=== PATIENT | female | born 1935 | race Caucasian/White ===

== ENCOUNTER → 2017-07-11 08:57 | Outpatient (CLI) | payer MEDICARE, OTHER, SELFPAY ==
[2017-07-11 10:12] LABS: AST(SGOT) 25 U/L (15-37); Alanine Aminotransfer ALT/SGPT 21 U/L (13-56); Alkaline Phosphatase 96 U/L (45-117); Bilirubin, Direct 0.16 mg/dL (0.00-0.30); Cholesterol 153 mg/dL (200); High Density Lipoprotein 50 mg/dL; Triglycerides 110 mg/dL; Very Low Density Lipoprotein 22 mg/dL (5-40)
== END ==
PROVIDERS: Family Provider Family Medicine; PCP Family Medicine; Visit Provider Internal Medicine Cardiovascular Disease
DX: E78.5 Hyperlipidemia, unspecified (principal); Z79.899 Other long term (current) drug therapy
CPT/HCPCS: 36415; 80061; 80076

== ENCOUNTER 2017-08-30 17:09 | Emergency (ER) | payer MEDICARE, OTHER, SELFPAY ==
[2017-08-30 17:11] VITALS: BP 138/67; PULSE 84; RESP 14; TEMP 37.5; O2SAT 94; BMI 26.7
[2017-08-30 17:14] VITALS: O2SAT 95
--- NOTE | 2017-08-30 17:16 | RAD_ITS ---
STUDY: X-RAY - LEFT KNEE REASON FOR EXAM: Female, 82 years old. Left knee pain. Fall. TECHNIQUE: 4 view(s) of the knee. COMPARISON: None. FINDINGS: Normal visualized distal femur. Normal visualized proximal tibia and fibula. Normal proximal tibiofibular articulation. There is no demonstrated fracture. There is moderate to severe degenerative arthrosis of the medial femorotibial compartment with moderate joint space narrowing. Normal lateral femorotibial compartment. There is moderate degenerative arthrosis of the patellofemoral articulation. There is no demonstrated joint effusion. There are vascular calcifications and vascular sutures.. RAD/Knee 4 or More Views IMPRESSION: No acute abnormality. Degenerative changes. No fracture or dislocation. Electronically Signed: Josue Wilson MD at 18:07 EDT , Service support ,
--- NOTE | 2017-08-30 17:16 | CT_ITS ---
STUDY: CT CHEST WITHOUT CONTRAST REASON FOR EXAM: Female, 82 years old. Trauma. Breast cancer. Mastectomy. RADIATION DOSAGE (If Supplied By Facility): CTDIvol = ( 9.59 ) mGy, DLP = ( 388.42 ) mGycm TECHNIQUE: Transaxial imaging was performed without the administration of intravenous contrast material. Individualized dose optimization techniques were used for this CT. COMPARISON: None. FINDINGS: Previous left mastectomy. There is hyperinflation of the lungs consistent with chronic obstructive lung disease (COPD). Small patchy area of pulmonary density 1.6 cm size in the left lung base may be scarring or minimal infiltrate.. No effusions. No evidence for pneumothorax. Small scattered areas of probable mild fibrosis and/or subsegmental atelectasis. No effusions. There is no demonstrated pleural abnormality. Sternal cerclage wires and vascular clips are present from a prior sternotomy and coronary artery bypass graft procedure (CABG). There are calcifications of the coronary arteries. Normal mediastinum. Normal hilar regions. Normal unenhanced pulmonary arteries. There is atherosclerotic calcification of the aortic arch with tortuosity and elongation of the aortic arch and descending thoracic aorta. Nondisplaced fracture seen of the left sixth and seventh lateral ribs. Exaggerated thoracic kyphosis primarily related to compression fracture of T4 of indeterminate age, very likely old. Diffuse demineralization. There is no demonstrated abnormality of the visualized upper abdomen. CT/Chest without Contrast IMPRESSION: Probable COPD. Question minimal area of infiltrate in the left lower lobe. No pneumothorax. Compression fracture T4 of indeterminate age. Fractures of the left lateral sixth and seventh ribs. Electronically Signed: Josue Wilson MD at 17:52 EDT , Service support ,
--- NOTE | 2017-08-30 17:16 | CT_ITS ---
STUDY: CT BRAIN WITHOUT CONTRAST REASON FOR EXAM: Female, 82 years old. Fall. Head injury. Breast cancer. RADIATION DOSAGE (If Supplied By Facility): CTDIvol = ( 44.99 ) mGy, DLP = ( 745.49 ) mGycm TECHNIQUE: Transaxial CT imaging of the brain was performed without administration of intravenous contrast material. Individualized dose optimization techniques were used for this CT. COMPARISON: None. FINDINGS: Soft tissue swelling seen over the left anterior head. Normal calvarium. No skull fractures. There is mild cerebral atrophy with widening of the extra-axial spaces and ventricular dilatation. There are areas of decreased attenuation within the white matter tracts of the supratentorial brain, consistent with microvascular disease changes. There are small punctate calcifications of the basal ganglia which are seen in the aging brain as a normal variant. Normal brainstem. There is mild cerebellar atrophy. There is no intracranial hemorrhage. There are no findings of an acute ischemic infarction. Normal visualized paranasal sinuses. CT/Brain/Head without Contrast IMPRESSION: Atrophy and white matter disease. No acute intracranial abnormality. Electronically Signed: Josue Wilson MD at 17:46 EDT , Service support ,
--- NOTE | 2017-08-30 17:23 | ED.VISSUMM ---
- ER Visit Summary Date of Service: 08/30/17 Chief Complaint: Fall History of Present Illness: The patient is a 82 F who states that she was outside. She tripped over a small lip in the concrete and fell onto her left side. She did strike her head. There was no reported loss of consciousness. Patient was ambulatory at the scene. Patient notes a hematoma to the left frontal parietal aspect of her scalp. She notes pain in the left elbow where EMS notes an abrasion. She also notes pain on the left lower anterior chest wall. She also notes some discomfort on the left knee. She states she is not on any blood thinners but our records are here at the hospital and she does not know her meds. Looking at her meds that we have on file she is on aspirin and Plavix. Physical Examination: Afebrile vital signs are stable Gen: Well-nourished well-developed Head: Normocephalic quarter size hematoma to the left frontoparietal scalp. No bony depression. Eyes: Perrl EOMI ENT: TMs clear no rhinorrhea moist mucous membranes Neck: Supple no lymphadenopathy no JVD nontender CVS: Regular rate rhythm no murmurs normal S1-S2 Respiratory: No distress clear to auscultation bilaterally patient has tenderness to palpation over the anterior lower chest wall. Abdomen: Soft nontender nondistended normal bowel sounds no masses Back: Nontender Extremity: Abrasion and mild tenderness to palpation of the left elbow. Full range and painless range of motion. There is a small hematoma and abrasion to the lateral aspect of the left knee. Skin: Normal color no rash Neuro: alert orientated ?3 CN II-XII intact normal strength sensation reflexes gait cerebellar Psych: Normal affect normal mood Test Results: CT of the head and wrist were obtained. X-rays of the left elbow and left knee were obtained. CT demonstrated a 6 and seventh rib fracture. Possible pulmonary contusion. Emergency Department Course and Treatment: Wounds were cleansed and dressed. Tetanus was updated. Patient was advised the CT findings. We discussed observation in the hospital which the patient would prefer to go home I think it is reasonable as she is breathing okay. Her son is going to stay with her tonight and return if any concerns. I will write for some oxycodone for the pain. I have asked that she follow-up with her family doctor later this week to see how she is doing. She is also advised that oxycodone can cause constipation and she should take a laxative during the time that she has taken it. Impression: 1. Mechanical fall 2. Left scalp hematoma 3. Left elbow contusion/abrasion 4. Left knee hematoma and abrasion 5. Left sixth and seventh rib fracture. 6. Tetanus update This note was generated with [employer] dictation software. It may contain incorrect words, spelling, and punctuation that were not noted in review of the chart prior to signing ED Disposition - Plan for ED Patient: Disposition: Home or Assisted Living Chief Complaint: Fall Instructions: ED Fx Rib Prescriptions: Oxycodone [Oxyir] 5 mg PO Q6H PRN PRN 4 Days #14 tab PRN Reason: Pain Referrals: Dereck Phillips III, MD [Primary Care Provider] - (in 3 days)
--- NOTE | 2017-08-30 17:30 | RAD_ITS ---
STUDY: X-RAY - LEFT ELBOW REASON FOR EXAM: Female, 82 years old. Fall. TECHNIQUE: 3 view(s) of the elbow. COMPARISON: None. FINDINGS: Normal visualized humerus, radius and ulna. Normal radiocapitellar and ulnotrochlear articulations. The soft tissue structures are unremarkable. There is no demonstrated fracture. RAD/Elbow min 3 Views IMPRESSION: Normal x-ray examination of the elbow. Electronically Signed: Josue Wilson MD at 18:05 EDT , Service support ,
[2017-08-30] MEDS: Diphth,Pertuss(Acell),Tet Vac 0.5 ML Vial IM (17:48)
[2017-08-30 18:53] VITALS: BP 130/65; PULSE 82; RESP 16; O2SAT 98
== END 2017-08-30 18:54 | disposition home or self-care (01) ==
PROVIDERS: Emergency Provider Emergency Medicine; Family Provider Family Medicine; PCP Family Medicine
DX: S00.03XA Contusion of scalp, initial encounter (principal); S50.02XA Contusion of left elbow, initial encounter; S50.312A Abrasion of left elbow, initial encounter; S80.02XA Contusion of left knee, initial encounter; S80.212A Abrasion, left knee, initial encounter; S22.42XA Multiple fractures of ribs, left side, initial encounter for closed fracture; Z23 Encounter for immunization; W01.0XXA Fall on same level from slipping, tripping and stumbling without subsequent striking against object, initial encounter; Y93.9 Activity, unspecified; Y92.9 Unspecified place or not applicable; I25.10 Atherosclerotic heart disease of native coronary artery without angina pectoris; E11.9 Type 2 diabetes mellitus without complications; I10 Essential (primary) hypertension; E78.00 Pure hypercholesterolemia, unspecified; Z85.3 Personal history of malignant neoplasm of breast; Z95.1 Presence of aortocoronary bypass graft; Z95.2 Presence of prosthetic heart valve; Z90.10 Acquired absence of unspecified breast and nipple; Z79.82 Long term (current) use of aspirin; Z79.02 Long term (current) use of antithrombotics/antiplatelets; Z79.899 Other long term (current) drug therapy
CPT/HCPCS: 70450; 71250; 73080; 73564; 90471; 90715; 99284

== ENCOUNTER 2017-08-31 13:35 | Inpatient (IN) | payer MEDICARE, OTHER, SELFPAY ==
[2017-08-31 13:36] VITALS: BP 120/70; PULSE 104; RESP 18; TEMP 36.6; O2SAT 94; BMI 24.0
[2017-08-31] MEDS: Ondansetron ODT 4 MG Tablet PO (14:02)
--- NOTE | 2017-08-31 15:10 | CM.ED ---
Case management consulted for discharge planning. Patient's son, David, and [id number], Lore, are at bedside. Lore states that she is medical power of assistant district attorney for the patient. Lore states the patient fell yesterday and had two rib fractures. She has had nausea and vomiting since going home yesterday. Lore states the patient can't get out of bed. The patient lives in a one story home and lives alone. Lore states the patient tells her everything hurts and that she's not eating. Lore states she does not feel the patient is safe to go home. Patient has never had home health services. I asked Lore what she felt the ideal scenario for discharge was and she restates that the patient cannot go home from the hospital. She states that she and her are unable to be with the patient at home and that the patient needs someone with her 24 hours to be safe. I reviewed Medicare's requirements for payment of SNF, needing three midnight stay in inpatient status. Family states understanding of this. Options provided included private pay [facility] placement, private pay aide services, home health setup. Lore states they cannot afford private pay at all. She states home health will not be enough care, since the patient can't even get out of bed and can't walk. Lore states these symptoms began after the fall and are not chronic. Dr. Parson updated. Case management will continue to follow for safe discharge planning.
[2017-08-31 15:43] LABS: Absolute Lymphocyte Count 0.47 X10^3/ul (0.83-4.51); Absolute Neutrophil Count 12.6 X10^3/uL (2.0-7.7); Basophil# 0.02 X10^3/uL; Basophil% 0.1 % (0-1); Differential Indicated SCAN CRITERIA MET; Eosinophil# 0.05 X10^3/uL; Eosinophils% 0.4 % (0-5); Hematocrit 35.1 % (37-47); Hemoglobin 11.4 g/dl (12.0-15.0); Lymphocyte # 0.47 X10^3/ul (4.0); Lymphocyte % 3.4 % (19-41); Mean Corp Hgb Conc 32.5 g/gl (32-36); Mean Corpuscular Hgb 27.6 pg (27.0-32.0); Mean Platelet Vol. 9.6 fl (6.2-12.0); Monocyte# 0.82 X10^3/uL; Monocyte% 5.9 % (0-10); Neutrophil # 12.61 X10^3/uL (2.7-7.7); Neutrophil % 90.1 % (47-70); POSITIVE COUNT NO; POSITIVE DIFFERENTIAL YES; POSITIVE MORPHOLOGY NO; Platelet Count 189 K/mm3 (150-450); RBC Distribution Width CV 14.9 % (11.6-14.6); RBC Distribution Width SD 46.2 fl (35.1-43.9); Red Blood Count 4.13 M/mm3 (4.2-5.4)
[2017-08-31 15:54] LABS: Anion Gap 6 (5-15); BUN 23 mg/dL (7-18); BUN/Creat Ratio 24.7 RATIO (10-20); Calcium,Total 9.6 mg/dL (8.5-10.1); Chloride 108 mmol/L (98-107); Creatinine, Serum 0.93 mg/dL (0.55-1.02); EST Glomerular Filtration Rate 61 mL/min (>60); Est Glom Filt Rate - Afr Amer 74 mL/min (>60); Estimated Creatinine Clearance 40.97 ml/min; Glucose 149 mg/dL (74-106); Sodium Level 141 mmol/L (136-145)
--- NOTE | 2017-08-31 15:56 | ED.DCSUM_ITS ---
- ER Visit Summary Date of Service: 08/31/17 Chief Complaint: Inability to care for self status post fall History of Present Illness: The patient is a 82 F who had a mechanical fall yesterday. Had a significant workup which revealed a left sixth and seventh rib fracture. Family member reluctant to give pain medicine because of nausea and vomiting and age. They report it took them 1 hour to dress prior to coming to the emergency department. He states she cannot walk without assistance. She was amatory without assistance prior to fall. Patient denies headache. She does complain of nausea vomiting dizziness. Her definition of dizziness as lightheadedness. Denies any double vision blurred vision or ocular pain. She denies ringing in her ears or decreased hearing. She denies trouble with speech or swallowing. She denies chest pain or shortness of breath. There is no hematemesis, melena hematochezia. She denies dysuria, frequency, urgency or hematuria. She states she hurts all over. She has multiple bruises noted. Physical Examination: Vital signs are normal. Patient has evidence of recent trauma with bruises noted. Head is atraumatic normocephalic. Pupils are equal round reactive. Extraocular muscles are intact. TMs are pearly white with landmarks noted. Nares patent with no drainage. Posterior pharynx without erythema or exudate. Uvula is midline. There is no dysphonia or dysphasia. Trachea is midline. There is no stridor with auscultation of the neck. Heart is regular without murmur, gallop or rub. S1 and S2 are normal. Lungs are clear to auscultation with good movement of air bilaterally. There is pain the patient left side of the chest. There is no crepitus obtains air noted. Abdomen is soft nontender. No hepatomegaly. No pain to palpation left or right costal margin. There is no CVA tenderness noted. GCS is 15. Patient is alert and oriented ?3. Motor is 5/5. Sensation is intact. DTRs are symmetric without clonus or Babinski. Cranial nerves II through XII are intact. Finger to nose to finger was performed adequately. Test Results: See is marked for an elevated white count of 14,000 with 96 which represents demargination finger trauma. H&H 7.4 and 35.1. Electro panel is pending. Emergency Department Course and Treatment: Case management was consulted regarding assistance for disposition. She recommended 23 observation since family is unable to pay for home health or private duty nursing. The hospitalist was contacted and is presently seen the patient. Treatment Plan: Pain management, physical therapy consultation and appropriate disposition after further evaluation Disposition: 23 hour observation medical surgical unit Impression: 1. Debility secondary to recent fall with fractured left sixth and seventh rib This note was generated with [employer] dictation software. It may contain incorrect words, spelling, and punctuation that were not noted in review of the chart prior to signing ED Disposition - Plan for ED Patient: Chief Complaint: Nausea/Vomiting Referrals: Dereck Phillips III, MD [Primary Care Provider] -
[2017-08-31 16:22] LABS: Differential Comment SCANNED
[2017-08-31 16:25] VITALS: BMI 24.0
[2017-08-31 16:33] VITALS: BP 112/54; PULSE 101; RESP 18; O2SAT 90
[2017-08-31 18:00] VITALS: BP 148/78; PULSE 103; RESP 16; TEMP 37.2; O2SAT 95
[2017-08-31 18:14] VITALS: BMI 22.4
[2017-08-31] MEDS: 0.9% Normal Saline 1,000 ML 100 ML IV (18:22)
[2017-08-31] MEDS: Acetaminophen 325 MG Tablet 650 MG PO (18:27)
--- NOTE | 2017-08-31 19:57 | PCM.HP.STD ---
Problem List (1) Generalized weakness Status: Acute History of Present Illness Date of Admission: 08/31/17 Chief Complaint: weakness and debility The patient is a 82 year old F seen in the emergency room at [facility] today after being brought in by her family with complaints of generalized weakness and inability to live by herself. Patient sustained a fall yesterday and was seen in the emergency room, it was noted at that time that she had left rib fractures of the sixth and seventh ribs. She also sustained a contusion to her scalp which was not severe. Patient's [id number] states that she did not give the patient pain medications because she was afraid she would become more unsteady on pain medications. Patient complains of left rib pain today and was unable to ambulate at home without maximal assistance. Family brought her in for placement temporarily in a [facility] facility for further care. Labs were obtained in the emergency room, they were remarkable for an elevated white count at 14, BUN was 23, glucose is 149. Patient's family states that the patient has not been able to take in fluids today and has had some nausea throughout the day. On examination, patient looks frail, she does have tenderness over her mid lateral chest area, there is evidence of bruising over the left hip and left lateral chest wall area. 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) Angina pectoris (Chronic) Atherosclerotic heart disease of wiyot coronary artery without angina pectoris (Chronic) Breast cancer (Chronic) CAD (coronary artery disease) (Chronic) Diabetes (Chronic) Chest pain (Chronic) Allergies sulfamethoxazole [From Septra] Allergy (Verified 08/30/17 17:11) Unknown trimethoprim [From Septra] Allergy (Verified 08/30/17 17:11) Unknown Home Medications: Ambulatory Orders Medication Instructions Recorded ALPRAZolam [Xanax] 0.25 mg PO DAILY 07/21/14 Aspirin [Aspirin, Baby] 162 mg PO DAILY@0800 07/21/14 Cholecalciferol (VIT D3) [Vitamin 2,000 unit PO DAILY 07/21/14 D3] Clopidogrel Bisulfate [Plavix] 75 mg PO DAILY 07/21/14 Letrozole [Femara] 2.5 mg PO DAILY 07/21/14 Metoprolol(XL)Succ [Toprol Xl 25 mg PO DAILY 07/21/14 (Beta Bunny)] Sertraline HCl [Zoloft] 50 mg PO DAILY 07/21/14 atorvastatin 40 mg tablet 40 mg PO DAILY 07/05/17 benazepril 20 mg tablet 20 mg PO DAILY 90 Days #90 07/11/17 Oxycodone [Oxyir] 5 mg PO Q6H PRN PRN 4 Days #14 tab 08/30/17 Donepezil HCl [Aricept] 5 mg PO QHS 08/31/17 Omeprazole [Omeprazole] 20 mg PO DAILY 08/31/17 Surgical History: cholecystectomy, - - Aortic valve replacement with bioprosthetic valve, coronary artery stent placements, left mastectomy Psychiatric History: No pertinent psych hx DIGITAL INTERN History: No pertinent DIGITAL INTERN history Lives: Alone Smoking Status: Never smoker Tobacco Use: Non-smoker Alcohol: None Drugs: None - *Family History Maternal History Items: - - mother and sister with breast cancer, chf Paternal History Items: - - father lived to be [facility] Review of Systems Constitutional: Reports: Weakness, Fatigue. Denies: Anorexia, Chills, Fever, Night Sweats, Malaise, Weight Change Eyes: Denies: Blurred vision, Cataracts, Conjunctivae Inflammation, Double vision, Drainage HEENT: Denies: Difficulty Hearing, Difficulty Swallowing, Dysphasia, Ear Pain, Eye Pain, Head Aches, Hearing Changes, Nasal bleeding, Nasal Congestion Cardiovascular: Reports: Chest Pain - Left sided chest wall pain. Denies: Claudication, Chest Pressure, Chest Tightness, Edema, Heaviness, Orthopnea, Palpitations, Paroxysmal Noc. Dyspnea Respiratory: Denies: Cough, Hemoptysis, Pleuritic Pain, Shortness of Breath, Shortness of breath at rest, Shortness of breath upon exertion, Sputum production Gastrointestinal: Denies: Abdominal Pain, Constipation, Diarrhea, Hematemesis, Hematochezia, Nausea, Melena, Vomiting Genitourinary: Denies: Dysuria, Frequency, Hematuria, Hesitancy, Incontinence, Nocturia, Urgency Gynecological: Denies: Breast symptoms Musculoskeletal: Denies: Foot Pain, Hand Pain, Joint Pain, Joint stiffness, Joint swelling, Joint Tenderness, Leg Pain Skin: Denies: Dryness, Pruritis, Rash Neurological: Denies: Blurred vision, Double vision, Slurred speech, Difficulty swallowing, Focal weakness, Headaches, Numbness, Tingling Psychiatric: Denies: Anxiety, Depression, Homicidal Ideations, Suicidal Ideations Endocrine: Denies: Change in Body Habitus, Heat/ Cold Intolerance, Polydipsia, Polyuria Hematologic/ Lymphatic: Denies: Adenopathy, Anemia, Easy Bruising, Easy Bleeding, Petechiae, Purpura VTE Information - Inpt Only VTE Present on Admission: No VTE Mechan Device Prophylaxis: None VTE Pharm Prophylaxis ordered?: Yes Patient Problems: Active and Suspected Problems (Last Updated 07/11/17 @ 13:02 by Angela Umana) Generalized weakness (Acute) - Physical Exam General: Alert, Oriented x3, Cooperative, No apparent distress, Well developed, - - Patient appears frail HEENT: Atraumatic, PERRLA, EOMI, Normocephalic Oral: Moist Mucosa Neck: Supple, No JVD, Negative Carotid Bruits, No Nuchal Rigidity, Trachea Midline, Thyroid Normal Size and Texture Lungs: Clear to auscultation, Normal air movement, No rhonchi, No wheeze, No rales Cardiovascular: Regular rate, Regular Rhythm, Normal S1, Normal S2, Murmur - 2/6 systolic murmur is noted at the left sternal border and apex Abdomen: Bowel Sounds Present, Soft, Non Tender, Non-Distended, No hernias noted Extremities: No clubbing, No cyanosis, No edema, Capillary Refill Less than 3 Seconds Skin: No rashes, No breakdown Musculoskeletal: Tenderness - Tenderness is noted over the left lateral chest wall to palpation Neurological: Cranial nerves II-XII grossly intact, Neuro grossly intact, Sensory exam intact to light touch and pain, Coordination normal Psych/Mental Status: Normal Affect, Appropriate, Alert and oriented to time, place, person, mood and affect Vital Signs Temp Pulse Resp BP Pulse Ox 99.0 F 103 H 16 148/78 H 95 08/31/17 18:00 08/31/17 18:00 08/31/17 18:00 08/31/17 18:00 08/31/17 18:00 Oxygen Flow Rate (L/min) 1 Oxygen Delivery Method Nasal Cannula Weight: 59.33 kg Body Mass Index (BMI) 22.4 Assessment/Plan Active and Suspected Problems (Last Updated 07/11/17 @ 13:02 by Angela Umana) Generalized weakness (Acute) #1 generalized weakness and debility-secondary to age, medical problems including osteoarthritis, and recent left rib fractures-patient will be placed in observation status on [facility], she will be seen by PT and OT, plans will be made for her to go to an extended care facility for rehab #2 recent left rib fractures-left sixth and seventh rib which occurred yesterday as a result of a fall #3 coronary artery disease-appears stable at this time #4 hypertension #5 hyperlipidemia #6 osteoarthritis Code Visit OBSV E&M: 22500 Initial observation care L3
--- NOTE | 2017-08-31 20:07 | HP.PCM_ITS ---
Problem List (1) Generalized weakness Status: Acute History of Present Illness Date of Admission: 08/31/17 Chief Complaint: weakness and debility The patient is a 82 year old F seen in the emergency room at [facility] today after being brought in by her family with complaints of generalized weakness and inability to live by herself. Patient sustained a fall yesterday and was seen in the emergency room, it was noted at that time that she had left rib fractures of the sixth and seventh ribs. She also sustained a contusion to her scalp which was not severe. Patient's daughter-in- law states that she did not give the patient pain medications because she was afraid she would become more unsteady on pain medications. Patient complains of left rib pain today and was unable to ambulate at home without maximal assistance. Family brought her in for placement temporarily in a correction facility for further care. Labs were obtained in the emergency room, they were remarkable for an elevated white count at 14, BUN was 23, glucose is 149. Patient's family states that the patient has not been able to take in fluids today and has had some nausea throughout the day. On examination, patient looks frail, she does have tenderness over her mid lateral chest area, there is evidence of bruising over the left hip and left lateral chest wall area. 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) Angina pectoris (Chronic) Atherosclerotic heart disease of [place] coronary artery without angina pectoris (Chronic) Breast cancer (Chronic) CAD (coronary artery disease) (Chronic) Diabetes (Chronic) Chest pain (Chronic) Allergies sulfamethoxazole [From Septra] Allergy (Verified 08/30/17 17:11) Unknown trimethoprim [From Septra] Allergy (Verified 08/30/17 17:11) Unknown Home Medications: Ambulatory Orders Medication Instructions Recorded ALPRAZolam [Xanax] 0.25 mg PO DAILY 07/21/14 Aspirin [Aspirin, Baby] 162 mg PO DAILY@0800 07/21/14 Cholecalciferol (VIT D3) [Vitamin 2,000 unit PO DAILY 07/21/14 D3] Clopidogrel Bisulfate [Plavix] 75 mg PO DAILY 07/21/14 Letrozole [Femara] 2.5 mg PO DAILY 07/21/14 Metoprolol(XL)Succ [Toprol Xl 25 mg PO DAILY 07/21/14 (Beta Bunny)] Sertraline HCl [Zoloft] 50 mg PO DAILY 07/21/14 atorvastatin 40 mg tablet 40 mg PO DAILY 07/05/17 benazepril 20 mg tablet 20 mg PO DAILY 90 Days #90 07/11/17 Oxycodone [Oxyir] 5 mg PO Q6H PRN PRN 4 Days #14 tab 08/30/17 Donepezil HCl [Aricept] 5 mg PO QHS 08/31/17 Omeprazole [Omeprazole] 20 mg PO DAILY 08/31/17 Surgical History: cholecystectomy, - - Aortic valve replacement with bioprosthetic valve, coronary artery stent placements, left mastectomy Psychiatric History: No pertinent psych hx DIRECT SUPPORT SPECIALIST History: No pertinent DIRECT SUPPORT SPECIALIST history Lives: Alone Smoking Status: Never smoker Tobacco Use: Non-smoker Alcohol: None Drugs: None - *Family History Maternal History Items: - - mother and sister with breast cancer, chf Paternal History Items: - - father lived to be [facility] Review of Systems Constitutional: Reports: Weakness, Fatigue. Denies: Anorexia, Chills, Fever, Night Sweats, Malaise, Weight Change Eyes: Denies: Blurred vision, Cataracts, Conjunctivae Inflammation, Double vision, Drainage HEENT: Denies: Difficulty Hearing, Difficulty Swallowing, Dysphasia, Ear Pain, Eye Pain, Head Aches, Hearing Changes, Nasal bleeding, Nasal Congestion Cardiovascular: Reports: Chest Pain - Left sided chest wall pain. Denies: Claudication, Chest Pressure, Chest Tightness, Edema, Heaviness, Orthopnea, Palpitations, Paroxysmal Noc. Dyspnea Respiratory: Denies: Cough, Hemoptysis, Pleuritic Pain, Shortness of Breath, Shortness of breath at rest, Shortness of breath upon exertion, Sputum production Gastrointestinal: Denies: Abdominal Pain, Constipation, Diarrhea, Hematemesis, Hematochezia, Nausea, Melena, Vomiting Genitourinary: Denies: Dysuria, Frequency, Hematuria, Hesitancy, Incontinence, Nocturia, Urgency Gynecological: Denies: Breast symptoms Musculoskeletal: Denies: Foot Pain, Hand Pain, Joint Pain, Joint stiffness, Joint swelling, Joint Tenderness, Leg Pain Skin: Denies: Dryness, Pruritis, Rash Neurological: Denies: Blurred vision, Double vision, Slurred speech, Difficulty swallowing, Focal weakness, Headaches, Numbness, Tingling Psychiatric: Denies: Anxiety, Depression, Homicidal Ideations, Suicidal Ideations Endocrine: Denies: Change in Body Habitus, Heat/ Cold Intolerance, Polydipsia, Polyuria Hematologic/ Lymphatic: Denies: Adenopathy, Anemia, Easy Bruising, Easy Bleeding , Petechiae, Purpura VTE Information - Inpt Only VTE Present on Admission: No VTE Mechan Device Prophylaxis: None VTE Pharm Prophylaxis ordered?: Yes Patient Problems: Active and Suspected Problems (Last Updated 07/11/17 @ 13:02 by Angela Umana) Generalized weakness (Acute) - Physical Exam General: Alert, Oriented x3, Cooperative, No apparent distress, Well developed, - - Patient appears frail HEENT: Atraumatic, PERRLA, EOMI, Normocephalic Oral: Moist Mucosa Neck: Supple, No JVD, Negative Carotid Bruits, No Nuchal Rigidity, Trachea Midline, Thyroid Normal Size and Texture Lungs: Clear to auscultation, Normal air movement, No rhonchi, No wheeze, No rales Cardiovascular: Regular rate, Regular Rhythm, Normal S1, Normal S2, Murmur - 2/ 6 systolic murmur is noted at the left sternal border and apex Abdomen: Bowel Sounds Present, Soft, Non Tender, Non-Distended, No hernias noted Extremities: No clubbing, No cyanosis, No edema, Capillary Refill Less than 3 Seconds Skin: No rashes, No breakdown Musculoskeletal: Tenderness - Tenderness is noted over the left lateral chest wall to palpation Neurological: Cranial nerves II-XII grossly intact, Neuro grossly intact, Sensory exam intact to light touch and pain, Coordination normal Psych/Mental Status: Normal Affect, Appropriate, Alert and oriented to time, place, person, mood and affect Vital Signs Temp Pulse Resp BP Pulse Ox 99.0 F 103 H 16 148/78 H 95 08/31/17 18:00 08/31/17 18:00 08/31/17 18:00 08/31/17 18:00 08/31/17 18:00 Oxygen Flow Rate (L/min) 1 Oxygen Delivery Method Nasal Cannula Weight: 59.33 kg Body Mass Index (BMI) 22.4 Assessment/Plan Active and Suspected Problems (Last Updated 07/11/17 @ 13:02 by Angela Umana) Generalized weakness (Acute) #1 generalized weakness and debility-secondary to age, medical problems including osteoarthritis, and recent left rib fractures-patient will be placed in observation status on [facility], she will be seen by PT and OT, plans will be made for her to go to an extended care facility for rehab #2 recent left rib fractures-left sixth and seventh rib which occurred yesterday as a result of a fall #3 coronary artery disease-appears stable at this time #4 hypertension #5 hyperlipidemia #6 osteoarthritis Code Visit OBSV E&M: 90273 Initial observation care L3
[2017-08-31 21:04] VITALS: BP 108/75; PULSE 92; RESP 18; TEMP 37.3; O2SAT 99
[2017-08-31] MEDS: Donepezil HCl 5 MG Tablet PO (21:25)
[2017-08-31] MEDS: Atorvastatin Calcium 40 MG Tablet PO (21:25)
[2017-08-31] MEDS: Heparin Injection (Vial) 5,000 UNIT/ML VIAL 5000 UNIT SC (21:25)
[2017-08-31] MEDS: 0.9% NaCl Peripheral Flush Adult/Peds IV (21:27)
[2017-09-01] VITALS (7 sets, daily range): BP systolic 114–144; BP diastolic 51–67; PULSE 92–111; RESP 18–24; TEMP 36.9–37.2; O2SAT 90–99
[2017-09-01] MEDS: Acetaminophen 325 MG Tablet 650 MG PO ×3 (03:10→17:38)
[2017-09-01] MEDS: 0.9% Normal Saline 1,000 ML 100 ML IV (03:22)
[2017-09-01] MEDS: Heparin Injection (Vial) 5,000 UNIT/ML VIAL 5000 UNIT SC ×3 (06:09→21:52)
--- NOTE | 2017-09-01 08:36 | NURSING ---
O2 applied at 2 lnc.
[2017-09-01] MEDS: Aspirin 81 MG TAB.CHEW 162 MG PO (08:47)
[2017-09-01] MEDS: Sertraline 50 MG Tablet PO (08:48)
[2017-09-01] MEDS: Pantoprazole Sodium 20 MG Tablet PO (08:48)
[2017-09-01] MEDS: Metoprolol(XL)Succ 25 MG Tablet PO (08:48)
[2017-09-01] MEDS: Clopidogrel Bisulfate 75 MG Tablet PO (08:49)
[2017-09-01] MEDS: Lisinopril 20 MG Tablet PO (08:49)
[2017-09-01] MEDS: ALPRAZolam 0.25 MG Tablet PO (08:54)
[2017-09-01] MEDS: Dext 5%-0.45% NS 1,000 ML 50 ML IV (10:31)
--- NOTE | 2017-09-01 10:31 | CASEMGMT ---
Social Work Assessment Referral Date: 09/01/2017 Date of Assessment: 09/01/2017 Reason for consult: Discharge planning Informant: RADHA GARCIA met with pt to complete initial assessment and to determine discharge needs. SW introduced self and role at [facility]. Pt states that she lives alone in a condo that is all one floor. Pt states that her several years ago. SW offered empathy and support to pt. Pt states that she has a cane and walker at home and denied wearing O2 at home. Pt states that her main support are her son and daughter in law. Pt states that they live about 10-15 minutes away. Pt states that before coming into the hospital she was previously independent with ADLs. Pt denied having difficulty with any ADLs. RADHA asked pt what her plans are for discharge planning. Pt states that someone had mentioned someone helping me at home. SW educated pt on home health care services. Pt is agreeable to Home Health Care through [facility] if needed. Pt gave this worker permission to call pt's daughter in law Lore to confirm discharge plans. Pt denied additional needs or concerns at this time. Substance Abuse Hx: Pt denied Mental Health Hx: Pt denied SW placed a call to Lore and left her a message regarding d/c planning. RADHA waiting for call back Plan: [facility] Mag[facility] [employer], [employer]
[2017-09-01] MEDS: Bisacodyl 10 MG Suppository RECTAL (10:32)
--- NOTE | 2017-09-01 11:10 | CASEMGMT ---
Addendum entered by Isabel Magana 09/01/17 11:33: SW received call from Aide at [facility] stating that pt's secondary insurance is a Medicare Supplement and that it doesn't pay for services that Medicare doesn't pay for. Aide states that the out of pocket cost would be the full amount. She states that she only has semi private rooms available at this time and that it would be $234-245 a day for pt. Original Note: Social Work Note SW received a call from pt's daughter in law Lore. Per Lore pt is going to need placement somewhere short term for rehabilitation. SW explained to Lore that the doctor is ready to discharge pt and pt will not meet Medicare criteria for placement to be covered and that placement would be private pay. Lore states that the ER told her that pt would be admitted onto floor and she thought that meant that she was going to be placed in inpatient status. SW informed Lore that this worker is unsure what being admitted entails but that currently pt is still in observation and that even if pt was admitted inpatient she still wouldn't meet criteria for Medicare as she would still need three midnight stays. SW educated Lore about Home Health Care and Lore states that pt will need more assistance/help than Home Health can provide. SW educated Lore on Private Aides but informed her that it would be private pay as well. Lore states that she cannot afford private pay. FRANNIE Cool informed this worker that referrals could be sent to SNF and that they could run the financials through pt's secondary insurance. SW updated Lore of this. Lore states that her choices for SNF are [facility] or [facility]. SW informed Lore that this worker will send over referrals to see about pt's secondary insurance. SW sent referrals to [facility] and [facility] and updated Aide at [facility] and Sharmin at [facility] to run pt's secondary insurance to see what the cost would be. SW waiting to hear back from Sharmin and Aide to determine out of pocket cost. Plan: TBD Isabel Magana GENERAL OFFICE WORKER, [employer]
--- NOTE | 2017-09-01 15:27 | PCM.PN.HOSP ---
Patient Problems: Active and Suspected Problems (Last Updated 07/11/17 @ 13:02 by Angela Umana) Generalized weakness (Acute) Subjective: Patient has left-sided lower rib pain. She had fall with multiple bruises over left forehead, left lower chest with fracture of left sixth and seventh rib, left hip region. Talked with the patient's [id number] and she explained she has gradual worsening of cognitive deficit and has been started on Aricept about a month ago. Vitals/I&O's: Vital Signs Temp Pulse Resp BP Pulse Ox 98.5 F 111 H 24 H 114/54 L 95 09/01/17 14:16 09/01/17 14:16 09/01/17 14:16 09/01/17 14:16 09/01/17 14:16 Oxygen Flow Rate (L/min) 1.5 Oxygen Delivery Method Room Air Weight: 130 lb 12.8 oz Body Mass Index (BMI) 22.4 Intake and Output for Last 24 Hours 08/30/17 08/31/17 09/01/17 23:59 23:59 23:59 Intake Total 2838 / 2838 Output Total 200 / 200 Balance 2638 / 2638 General: Alert, Oriented x3, Cooperative HEENT: Atraumatic, PERRLA, EOMI, Normocephalic Neck: Supple, No JVD, Negative Carotid Bruits Lungs: No rhonchi, No wheeze, Diminished - The left lung base Cardiovascular: Regular rate, Regular Rhythm, Normal S1, Normal S2, No murmurs Abdomen: Bowel Sounds Present, Soft, Non Tender, Non-Distended Extremities: No edema, Capillary Refill Less than 3 Seconds Skin: Rash Present - Bruise present over multiple places as mentioned above Musculoskeletal: No Tenderness to Palpation of Joints or Extremities Neurological: Cranial nerves II-XII grossly intact Psych/Mental Status: Normal Affect, Appropriate Current Medications Acetaminophen (Tylenol) 650 mg PO Q6H PRN PRN PRN Reason: Mild Pain (1-3)/Temp > 100.7 F Last Admin: 09/01/17 10:31 Dose: 650 mg Hydrocodone Bitart/Acetaminophen ([place] 5mg-325mg) 1 tablet PO Q4H PRN PRN PRN Reason: SEVERE PAIN (-02/01) Aspirin (Aspirin, Baby) 162 mg PO DAILY@0800 O[facility]AN Last Admin: 09/01/17 08:47 Dose: 162 mg Atorvastatin Calcium (Lipitor) 40 mg PO QHS [facility] Last Admin: 08/31/17 21:25 Dose: 40 mg Cholecalciferol (Vitamin D) 2,000 unit PO DAILY [facility] Last Admin: 09/01/17 08:47 Dose: 2,000 unit Clopidogrel Bisulfate (Plavix) 75 mg PO DAILY [facility] Last Admin: 09/01/17 08:49 Dose: 75 mg Donepezil HCl (Aricept) 5 mg PO QHS [facility] Last Admin: 08/31/17 21:25 Dose: 5 mg Heparin Sodium (Porcine) (Heparin Na) 5,000 unit SC Q8 [facility] Last Admin: 09/01/17 14:10 Dose: 5,000 units Dextrose/Sodium Chloride () 1,000 mls @ 50 mls/hr IV .Q20H [facility] Last Admin: 09/01/17 10:31 Dose: 50 mls/hr Letrozole (Femara) 2.5 mg PO DAILY [facility] Last Admin: 09/01/17 08:48 Dose: 2.5 mg Lisinopril (Zestril) 20 mg PO DAILY [facility] Last Admin: 09/01/17 08:49 Dose: 20 mg Metoprolol Succinate (Toprol Xl (Beta Bunny)) 25 mg PO DAILY [facility] Last Admin: 09/01/17 08:48 Dose: 25 mg Ondansetron HCl (Zofran) 4 mg IV Q8H PRN PRN PRN Reason: NAUSEA Pantoprazole Sodium (Protonix) 20 mg PO DAILY [facility] Last Admin: 09/01/17 08:48 Dose: 20 mg Sertraline HCl (Zoloft) 50 mg PO DAILY [facility] Last Admin: 09/01/17 08:48 Dose: 50 mg Sodium Chloride () 5 - 30 ml IV UD PRN PRN Reason: SALINE FLUSH Last Admin: 08/31/17 21:27 Dose: 10 ml Medical Necessity - Tobacco Use Smoking Status: Never smoker Tobacco Use: Non-smoker Assessment/Plan Active and Suspected Problems (Last Updated 07/11/17 @ 13:02 by Angela Umana) Generalized weakness (Acute) The patient is a 82 year old F seen in the emergency room at [facility] was admitted with complaints of generalized weakness and inability to live by herself. Earlier, patient sustained a fall on 08/30/2017 and was seen in the emergency room, it was noted at that time that she had left rib fractures of the sixth and seventh ribs. She also sustained a contusion to her scalp which was not severe. Patient has left-sided lower rib pain. She had fall with multiple bruises over left forehead, left lower chest with fracture of left sixth and seventh rib, left hip region. I Talked with the patient's [id number] and she explained she has gradual worsening of cognitive deficit and has been started on Aricept about a month ago. 1 generalized weakness and debility-secondary to age, medical problems including osteoarthritis, and recent left rib fractures-patient will be placed in observation status on [facility], she will be seen by PT and OT, plans will be made for her to go to an extended care facility for rehab #2 recent left rib fractures-left sixth and seventh rib which occurred on 08/30/2017 after fall: CT chest was done on 08/30/2017 and shows compression fracture of T4 of indeterminate age. Fracture of left lateral sixth and seventh ribs. Questionable minimal infiltrate in the left lower lobe but no pneumothorax. Hyperinflation of the lungs. CT chest reviewed Patient's [id number] upset with the diagnosis of COPD told by ER physician. She has never smoked. Denies chronic cough, sputum or shortness of breath at rest or exertion. I told its radiological finding but clinically she does not have symptoms of COPD #3 coronary artery disease-appears stable at this time #4 hypertension #5 hyperlipidemia #6 osteoarthritis Chronic constipation: On stool softener, Dulcolax suppository and if does not relieve soapsuds enema. Laboratory Results 08/31/17 15:34: WBC 14.0 H, RBC 4.13 L, Hgb 11.4 L, Hct 35.1 L, MCV 85.0, MCH 27.6, MCHC 32.5, RDW 14.9 H, RDW Differential 46.2 H, Plt Count 189, MPV 9.6, Immature Gran % (Auto) 0.100, Neut % (Auto) 90.1 H, Lymph % (Auto) 3.4 L, [place] % (Auto) 5.9, Eos % (Auto) 0.4, Baso % (Auto) 0.1, Absolute Neuts (auto) 12.6 H, Absolute Lymphs (auto) 0.47 L, Total Counted Not Reportable, Differential Comment SCANNED 08/31/17 15:34: Sodium 141, Potassium 4.0, Chloride 108 H, Carbon Dioxide 27.0, Anion Gap 6, BUN 23 H, Creatinine 0.93, Estim Creat Clear Calc 40.97, Est GFR (MDRD) Af Amer 74, Est GFR (MDRD) Non-Af 61, BUN/Creatinine Ratio 24.7 H, Glucose 149 H, Calcium 9.6 Code Visit Inpatient E&M: 72360 Subs Hosp L2
--- NOTE | 2017-09-01 15:41 | PN_ITS ---
Patient Problems: Active and Suspected Problems (Last Updated 07/11/17 @ 13:02 by Angela Umana) Generalized weakness (Acute) Subjective: Patient has left-sided lower rib pain. She had fall with multiple bruises over left forehead, left lower chest with fracture of left sixth and seventh rib, left hip region. Talked with the patient's [id number]-knb and she explained she has gradual worsening of cognitive deficit and has been started on Aricept about a month ago. Vitals/I&O's: Vital Signs Temp Pulse Resp BP Pulse Ox 98.5 F 111 H 24 H 114/54 L 95 09/01/17 14:16 09/01/17 14:16 09/01/17 14:16 09/01/17 14:16 09/01/17 14:16 Oxygen Flow Rate (L/min) 1.5 Oxygen Delivery Method Room Air Weight: 130 lb 12.8 oz Body Mass Index (BMI) 22.4 Intake and Output for Last 24 Hours 08/30/17 08/31/17 09/01/17 23:59 23:59 23:59 Intake Total 2838 / 2838 Output Total 200 / 200 Balance 2638 / 2638 General: Alert, Oriented x3, Cooperative HEENT: Atraumatic, PERRLA, EOMI, Normocephalic Neck: Supple, No JVD, Negative Carotid Bruits Lungs: No rhonchi, No wheeze, Diminished - The left lung base Cardiovascular: Regular rate, Regular Rhythm, Normal S1, Normal S2, No murmurs Abdomen: Bowel Sounds Present, Soft, Non Tender, Non-Distended Extremities: No edema, Capillary Refill Less than 3 Seconds Skin: Rash Present - Bruise present over multiple places as mentioned above Musculoskeletal: No Tenderness to Palpation of Joints or Extremities Neurological: Cranial nerves II-XII grossly intact Psych/Mental Status: Normal Affect, Appropriate Current Medications Acetaminophen (Tylenol) 650 mg PO Q6H PRN PRN PRN Reason: Mild Pain (1-3)/Temp > 100.7 F Last Admin: 09/01/17 10:31 Dose: 650 mg Hydrocodone Bitart/Acetaminophen ([place] 5mg-325mg) 1 tablet PO Q4H PRN PRN PRN Reason: SEVERE PAIN (-02/01) Aspirin (Aspirin, Baby) 162 mg PO DAILY@0800 OSMAN Last Admin: 09/01/17 08:47 Dose: 162 mg Atorvastatin Calcium (Lipitor) 40 mg PO QHS [facility] Last Admin: 08/31/17 21:25 Dose: 40 mg Cholecalciferol (Vitamin D) 2,000 unit PO DAILY [facility] Last Admin: 09/01/17 08:47 Dose: 2,000 unit Clopidogrel Bisulfate (Plavix) 75 mg PO DAILY [facility] Last Admin: 09/01/17 08:49 Dose: 75 mg Donepezil HCl (Aricept) 5 mg PO QHS [facility] Last Admin: 08/31/17 21:25 Dose: 5 mg Heparin Sodium (Porcine) (Heparin Na) 5,000 unit SC Q8 [facility] Last Admin: 09/01/17 14:10 Dose: 5,000 units Dextrose/Sodium Chloride () 1,000 mls @ 50 mls/hr IV .Q20H [facility] Last Admin: 09/01/17 10:31 Dose: 50 mls/hr Letrozole (Femara) 2.5 mg PO DAILY [facility] Last Admin: 09/01/17 08:48 Dose: 2.5 mg Lisinopril (Zestril) 20 mg PO DAILY [facility] Last Admin: 09/01/17 08:49 Dose: 20 mg Metoprolol Succinate (Toprol Xl (Beta Bunny)) 25 mg PO DAILY [facility] Last Admin: 09/01/17 08:48 Dose: 25 mg Ondansetron HCl (Zofran) 4 mg IV Q8H PRN PRN PRN Reason: NAUSEA Pantoprazole Sodium (Protonix) 20 mg PO DAILY [facility] Last Admin: 09/01/17 08:48 Dose: 20 mg Sertraline HCl (Zoloft) 50 mg PO DAILY [facility] Last Admin: 09/01/17 08:48 Dose: 50 mg Sodium Chloride () 5 - 30 ml IV UD PRN PRN Reason: SALINE FLUSH Last Admin: 08/31/17 21:27 Dose: 10 ml Medical Necessity - Tobacco Use Smoking Status: Never smoker Tobacco Use: Non-smoker Assessment/Plan Active and Suspected Problems (Last Updated 07/11/17 @ 13:02 by Angela Umana) Generalized weakness (Acute) The patient is a 82 year old F seen in the emergency room at [facility] was admitted with complaints of generalized weakness and inability to live by herself. Earlier, patient sustained a fall on 08/30/2017 and was seen in the emergency room, it was noted at that time that she had left rib fractures of the sixth and seventh ribs. She also sustained a contusion to her scalp which was not severe. Patient has left-sided lower rib pain. She had fall with multiple bruises over left forehead, left lower chest with fracture of left sixth and seventh rib, left hip region. I Talked with the patient's [id number] and she explained she has gradual worsening of cognitive deficit and has been started on Aricept about a month ago. 1 generalized weakness and debility-secondary to age, medical problems including osteoarthritis, and recent left rib fractures-patient will be placed in observation status on [facility], she will be seen by PT and OT, plans will be made for her to go to an extended care facility for rehab #2 recent left rib fractures-left sixth and seventh rib which occurred on 2017 after fall: CT chest was done on 08/30/2017 and shows compression fracture of T4 of indeterminate age. Fracture of left lateral sixth and seventh ribs. Questionable minimal infiltrate in the left lower lobe but no pneumothorax. Hyperinflation of the lungs. CT chest reviewed Patient's ufopxbro-aj-eil upset with the diagnosis of COPD told by ER physician. She has never smoked. Denies chronic cough, sputum or shortness of breath at rest or exertion. I told its radiological finding but clinically she does not have symptoms of COPD #3 coronary artery disease-appears stable at this time #4 hypertension #5 hyperlipidemia #6 osteoarthritis Chronic constipation: On stool softener, Dulcolax suppository and if does not relieve soapsuds enema. Laboratory Results 08/31/17 15:34: WBC 14.0 H, RBC 4.13 L, Hgb 11.4 L, Hct 35.1 L, MCV 85.0, MCH 27.6, MCHC 32.5, RDW 14.9 H, RDW Differential 46.2 H, Plt Count 189, MPV 9.6, Immature Gran % (Auto) 0.100, Neut % (Auto) 90.1 H, Lymph % (Auto) 3.4 L, [place] % (Auto) 5.9, Eos % (Auto) 0.4, Baso % (Auto) 0.1, Absolute Neuts (auto) 12.6 H , Absolute Lymphs (auto) 0.47 L, Total Counted Not Reportable, Differential Comment SCANNED 08/31/17 15:34: Sodium 141, Potassium 4.0, Chloride 108 H, Carbon Dioxide 27.0, Anion Gap 6, BUN 23 H, Creatinine 0.93, Estim Creat Clear Calc 40.97, Est GFR ( MDRD) Af Amer 74, Est GFR (MDRD) Non-Af 61, BUN/Creatinine Ratio 24.7 H, Glucose 149 H, Calcium 9.6 Code Visit Inpatient E&M: 22336 Subs Hosp L2
--- NOTE | 2017-09-01 17:19 | CHAPLAIN ---
Type of Pastoral Visit _x__ Initial Visit ___ Follow-up Visit ___ On-call Visit ___ General Patient Visit ___ Spiritual Assessment ___ Family Conference ___ Bereavement ___ Rapid Response ___ Code Blue ___ Other (describe below) Pastoral Care Referral From _x__ Patient ___ Family ___ Nurse ___ Physician ___ Roads Supervisor ___ Long Chain Dyeing Machine Operator ___ Other (describe below) Sacrament/Intervention _x__ Active listening ___ Anointing ___ Jewish ___ Bereavement ___ Communion ___ Oma exploration ___ _x__ Life review _x__ Prayer ___ Reconciliation ___ Sacrament of Sick _x__ Supportive presence ___ Wedding ___ Other (describe below) Pastoral Comments
--- NOTE | 2017-09-01 18:24 | CASEMGMT ---
Social Work Note RADHA met with pt's son Jose Guadalupe and daughter in law Lore. RADHA explained to Lore that pt's secondary insurance is a Medicare supplement and they won't pay for placement as they follow same guidelines as Medicare and pt hasn't had three midnight stays. RADHA provided Lore with the daily cost for [facility] and [facility] and explained that [facility] requires a month in advance payment for placement. SW explained that if pt wasn't at [facility] for a month then they would be reimbursed. Lore states understanding. Lore states that she spoke with Dr. Schwarz earlier and she states that he states that he made pt inpatient status. RADHA is unsure of this but will follow up with Dr. Schwarz tomorrow. Lore states that the first choice in placement for pt would be [facility]. Lore states that pt will not be going home as she is too weak. RADHA will continue to follow along to assist with discharge planning. Plan: [facility] HAZARDOUS MATERIALS HANDLER, REFRACTORY SPECIALIST
--- NOTE | 2017-09-01 18:26 | PCA ---
SENT TO [facility]ICE OF [facility] TO RELEASE MEDICAL RECORDS OF LAB RESULTS TAKEN IN THE OFFICE
[2017-09-01 21:40] LABS: Bacteria 0 SEEN /hpf (None Seen); Mucous, Urine 0 SEEN /hpf (<or=2+)
[2017-09-01 21:43] LABS: Color, Urine Yellow (Yellow); Glucose, Dipstick Normal (Normal); Ketone-Dipstick Negative (Negative); Leukocyte Esterase-Dipstick 25 /ul (Negative); Nitrite-Dipstick Negative (Negative); Occult Blood-Urine 25 /ul (Negative); Protein-Dipstick 30 mg/dl (Negative); Urine Bilirubin Dipstick Negative (Negative); Urine Clarity Sl. Cloudy (Clear); Urine Urobilinogen 1 mg/dl (Normal)
[2017-09-01] MEDS: Atorvastatin Calcium 40 MG Tablet PO (21:52)
[2017-09-01] MEDS: Donepezil HCl 5 MG Tablet PO (21:52)
[2017-09-01 21:53] LABS: Red Blood Cells-Urine 0-5 SEEN /hpf (0-5); Squamous Epithelial Cells - UA 0-5 SEEN /hpf (5-10); White Blood Cells 0-5 SEEN /hpf (0-5)
[2017-09-02 03:03] VITALS: BP 142/69; PULSE 109; RESP 18; TEMP 37.2; O2SAT 93
[2017-09-02] MEDS: Dext 5%-0.45% NS 1,000 ML 50 ML IV ×2 (03:09→21:37)
[2017-09-02] MEDS: Acetaminophen 325 MG Tablet 650 MG PO ×3 (03:09→17:51)
[2017-09-02 05:56] LABS: Absolute Neutrophil Count 7.6 X10^3/uL (2.0-7.7); Basophil# 0.03 X10^3/uL; Basophil% 0.3 % (0-1); Eosinophil# 0.49 X10^3/uL; Eosinophils% 5.1 % (0-5); Hematocrit 28.5 % (37-47); Hemoglobin 9.1 g/dl (12.0-15.0); Lymphocyte % 8.4 % (19-41); Mean Corp Hgb Conc 31.9 g/gl (32-36); Mean Corpuscular Hgb 28.1 pg (27.0-32.0); Mean Platelet Vol. 9.7 fl (6.2-12.0); Monocyte# 0.63 X10^3/uL; Monocyte% 6.6 % (0-10); Neutrophil # 7.59 X10^3/uL (2.7-7.7); Neutrophil % 79.4 % (47-70); Platelet Count 183 K/mm3 (150-450); RBC Distribution Width CV 14.6 % (11.6-14.6); RBC Distribution Width SD 45.8 fl (35.1-43.9); Red Blood Count 3.24 M/mm3 (4.2-5.4); White Blood Count 9.6 K/mm3 (4.4-11.0)
[2017-09-02 05:57] LABS: POSITIVE COUNT NO; POSITIVE DIFFERENTIAL NO; POSITIVE MORPHOLOGY NO
[2017-09-02 06:37] LABS: Anion Gap 9 (5-15); BUN 14 mg/dL (7-18); BUN/Creat Ratio 19.3 RATIO (10-20); Calcium,Total 8.3 mg/dL (8.5-10.1); Chloride 111 mmol/L (98-107); Creatinine, Serum 0.73 mg/dL (0.55-1.02); EST Glomerular Filtration Rate 82 mL/min (>60); Est Glom Filt Rate - Afr Amer 99 mL/min (>60); Glucose 138 mg/dL (74-106); Potassium 3.6 mmol/L (3.5-5.1); Sodium Level 145 mmol/L (136-145)
[2017-09-02 08:07] VITALS: BP 135/62; PULSE 101; PULSE 90; RESP 18; TEMP 37.1; O2SAT 94
[2017-09-02] MEDS: Clopidogrel Bisulfate 75 MG Tablet PO (08:22)
[2017-09-02] MEDS: Pantoprazole Sodium 20 MG Tablet PO (08:22)
[2017-09-02] MEDS: Sertraline 50 MG Tablet PO (08:23)
[2017-09-02] MEDS: Lisinopril 10 MG Tablet PO (08:23)
[2017-09-02 08:24] VITALS: PULSE 101
[2017-09-02] MEDS: Aspirin 81 MG TAB.CHEW 162 MG PO (08:24)
[2017-09-02] MEDS: Metoprolol(XL)Succ 25 MG Tablet PO (08:24)
--- NOTE | 2017-09-02 09:07 | CASEMGMT ---
Social Work Note Pt was made inpatient status yesterday. RADHA faxed a referral to [facility] and left a message for Aide stating that pt has been admitted inpatient and pt's third midnight will be Tuesday night and pt would be ready for discharge Tuesday. RADHA waiting for call back from Aide to confirm if she can accept pt. RADHA will continue to follow to assist with discharge planning. Plan: [facility] pending acceptance Isabel Magana VETERINARY MILK SPECIALIST, REVIEW CONSULTANT
--- NOTE | 2017-09-02 11:04 | CASEMGMT ---
Addendum entered by Isabel Magana 09/02/17 12:38: [facility]escent 7000 completed in [facility] Original Note: Addendum entered by Isabel Magana 09/02/17 11:15: SW updated pt's daughter in law Lore that pt will be discharged to [facility] Tuesday and also updated pt's son of this. RADHA explained to David that transportation can be set up for pt. David states understanding. Original Note: Social Work Note RADHA received call from Aide at [facility] stating that on pt's notes it states that she is currently talking Aricept but doesn't have a diagnosis to support the medication. RADHA informed Aide that it appears that pt started taking Aricept at home and that it was most likely prescribed through her PCP and that the doctor here continued the medication from home. Aide states that she will call pt's PCP to get further information. Aide states that she can accept pt and that pt can be admitted on Tuesday. Aide provided this worker with weekend phone and fax number. , . Green sheet on chart. Dr. Schwarz updated of this. Plan: [facility] Tuesday Isabel Magana MSW, LEGAL RESEARCHER
[2017-09-02] MEDS: Bisacodyl 10 MG Suppository RECTAL (11:13)
[2017-09-02] MEDS: Heparin Injection (Vial) 5,000 UNIT/ML VIAL 5000 UNIT SC ×2 (11:14→21:34)
--- NOTE | 2017-09-02 12:40 | CASEMGMT ---
Social Work Note SW updated Sharmin at [facility] that pt's family has decided to go to W Plan: [facility] Tuesday Isabel Magana OFFICE CLIN ASST, ROLLER PRINTING SUPERVISOR
--- NOTE | 2017-09-02 12:52 | PCM.PN.HOSP ---
Patient Problems: Active and Suspected Problems (Last Updated 07/11/17 @ 13:02 by Angela Umana) Generalized weakness (Acute) Subjective: Patient is still has pain on deep inspiration. Patient moved bowel. Waiting for precertification for SNF placement Vitals/I&O's: Vital Signs Temp Pulse Resp BP Pulse Ox 98.7 F 101 H 18 135/62 H 94 09/02/17 08:07 09/02/17 08:24 09/02/17 08:07 09/02/17 08:07 09/02/17 08:07 Oxygen Delivery Method Room Air Intake and Output for Last 24 Hours 08/31/17 09/01/17 09/02/17 23:59 23:59 23:59 Intake Total 450 / 3288 893 / 893 Output Total 775 / 775 Balance 450 / 3088 118 / 118 General: Alert, Oriented x3, Cooperative HEENT: Atraumatic, PERRLA, EOMI, Normocephalic Neck: Supple, No JVD, Negative Carotid Bruits Lungs: Clear to auscultation, Diminished - On the left lung base Cardiovascular: Regular rate, No murmurs Abdomen: Bowel Sounds Present, Soft, Non Tender Extremities: No edema, Capillary Refill Less than 3 Seconds Skin: No breakdown, Rash Present - Multiple bruises due to fall Musculoskeletal: No Tenderness to Palpation of Joints or Extremities, Arthritic Changes, Muscle Wasting Neurological: Cranial nerves II-XII grossly intact Psych/Mental Status: Normal Affect, Appropriate Laboratory Results 09/01/17 19:55: Urine Color Yellow, Urine Clarity Sl. Cloudy, Urine pH 6.0, Ur Specific Mcl[place] 1.020, Urine Protein 30 H, Urine Glucose (UA) Normal, Urine Ketones Negative, Urine Occult Blood 25 H, Urine Nitrite Negative, Urine Bilirubin Negative, Urine Urobilinogen 1 H, Ur Leukocyte Esterase 25 H, Urine RBC 0-5 SEEN, Urine WBC 0-5 SEEN, Ur Squamous Epith Cells 0-5 SEEN, Urine Bacteria 0 SEEN, Urine Mucus 0 SEEN 09/02/17 05:30: WBC 9.6, RBC 3.24 L, Hgb 9.1 L, Hct 28.5 L, MCV 88.0, MCH 28.1, MCHC 31.9 L, RDW 14.6, RDW Differential 45.8 H, Plt Count 183, MPV 9.7, Immature Gran % (Auto) 0.200, Neut % (Auto) 79.4 H, Lymph % (Auto) 8.4 L, Franklin % (Auto) 6.6, Eos % (Auto) 5.1 H, Baso % (Auto) 0.3, Absolute Neuts (auto) 7.6, Absolute Lymphs (auto) 0.80 L, Total Counted Not Reportable 09/02/17 05:30: Sodium 145, Potassium 3.6, Chloride 111 H, Carbon Dioxide 25.0, Anion Gap 9, BUN 14, Creatinine 0.73, Estim Creat Clear Calc 38.10, Est GFR (MDRD) Af Amer 99, Est GFR (MDRD) Non-Af 82, BUN/Creatinine Ratio 19.3, Glucose 138 H, Calcium 8.3 L Current Medications Acetaminophen (Tylenol) 650 mg PO Q6H PRN PRN PRN Reason: Mild Pain (1-3)/Temp > 100.7 F Last Admin: 09/02/17 11:13 Dose: 650 mg Hydrocodone Bitart/Acetaminophen ([place] 5mg-325mg) 1 tablet PO Q4H PRN PRN PRN Reason: SEVERE PAIN (6-10) Aspirin (Aspirin, Baby) 162 mg PO DAILY@0800 [facility] Last Admin: 09/02/17 08:24 Dose: 162 mg Atorvastatin Calcium (Lipitor) 40 mg PO QHS [facility] Last Admin: 09/01/17 21:52 Dose: 40 mg Bisacodyl (Dulcolax) 10 mg RECTAL DAILY [facility] Last Admin: 09/02/17 11:13 Dose: 10 mg Cholecalciferol (Vitamin D) 2,000 unit PO DAILY [facility] Last Admin: 09/02/17 08:23 Dose: 2,000 unit Clopidogrel Bisulfate (Plavix) 75 mg PO DAILY [facility] Last Admin: 09/02/17 08:22 Dose: 75 mg Donepezil HCl (Aricept) 5 mg PO QHS [facility] Last Admin: 09/01/17 21:52 Dose: 5 mg Heparin Sodium (Porcine) (Heparin Na) 5,000 unit SC Q12 [facility] Last Admin: 09/02/17 11:14 Dose: 5,000 units Dextrose/Sodium Chloride () 1,000 mls @ 50 mls/hr IV .Q20H [facility] Last Admin: 09/02/17 03:09 Dose: 50 mls/hr Letrozole (Femara) 2.5 mg PO DAILY [facility] Last Admin: 09/02/17 08:22 Dose: 2.5 mg Lisinopril (Zestril) 10 mg PO DAILY [facility] Last Admin: 09/02/17 08:23 Dose: 10 mg Metoprolol Succinate (Toprol Xl (Beta Bunny)) 25 mg PO DAILY [facility] Last Admin: 09/02/17 08:24 Dose: 25 mg Ondansetron HCl (Zofran) 4 mg IV Q8H PRN PRN PRN Reason: NAUSEA Pantoprazole Sodium (Protonix) 20 mg PO DAILY [facility] Last Admin: 09/02/17 08:22 Dose: 20 mg Sertraline HCl (Zoloft) 50 mg PO DAILY [facility] Last Admin: 09/02/17 08:23 Dose: 50 mg Sodium Chloride () 5 - 30 ml IV UD PRN PRN Reason: SALINE FLUSH Last Admin: 08/31/17 21:27 Dose: 10 ml Medical Necessity - Tobacco Use Smoking Status: Never smoker Tobacco Use: Non-smoker Assessment/Plan Active and Suspected Problems (Last Updated 07/11/17 @ 13:02 by Angela Umana) Generalized weakness (Acute) The patient is a 82 year old F seen in the emergency room at [facility] was admitted with complaints of generalized weakness and inability to live by herself. Earlier, patient sustained a fall on 08/30/2017 and was seen in the emergency room, it was noted at that time that she had left rib fractures of the sixth and seventh ribs. She also sustained a contusion to her scalp which was not severe. Patient has left-sided lower rib pain. She had fall with multiple bruises over left forehead, left lower chest with fracture of left sixth and seventh rib, left hip region. I Talked with the patient's [id number] and she explained she has gradual worsening of cognitive deficit and has been started on Aricept about a month ago. 1 generalized weakness and debility-secondary to age, medical problems including osteoarthritis, and recent left rib fractures-patient is status converted to inpatient. PT and OT. recommended SNF placement. #2 recent left rib fractures-left sixth and seventh rib which occurred on 08/30/2017 after fall: CT chest was done on 08/30/2017 and shows compression fracture of T4 of indeterminate age. Fracture of left lateral sixth and seventh ribs. Questionable minimal infiltrate in the left lower lobe but no pneumothorax. Hyperinflation of the lungs. CT chest reviewed Patient's [id number] upset with the diagnosis of COPD told by ER physician. She has never smoked. Denies chronic cough, sputum or shortness of breath at rest or exertion. I told its radiological finding but clinically she does not have symptoms of COPD #3 coronary artery disease-appears stable at this time #4 hypertension #5 hyperlipidemia #6 osteoarthritis Chronic constipation: On stool softener, Dulcolax suppository and if does not relieve soapsuds enema. Patient had bowel movement on Dulcolax suppository Laboratory Results 09/01/17 19:55: Urine Color Yellow, Urine Clarity Sl. Cloudy, Urine pH 6.0, Ur Specific [place]cl[place] 1.020, Urine Protein 30 H, Urine Glucose (UA) Normal, Urine Ketones Negative, Urine Occult Blood 25 H, Urine Nitrite Negative, Urine Bilirubin Negative, Urine Urobilinogen 1 H, Ur Leukocyte Esterase 25 H, Urine RBC 0-5 SEEN, Urine WBC 0-5 SEEN, Ur Squamous Epith Cells 0-5 SEEN, Urine Bacteria 0 SEEN, Urine Mucus 0 SEEN 09/02/17 05:30: WBC 9.6, RBC 3.24 L, Hgb 9.1 L, Hct 28.5 L, MCV 88.0, MCH 28.1, MCHC 31.9 L, RDW 14.6, RDW Differential 45.8 H, Plt Count 183, MPV 9.7, Immature Gran % (Auto) 0.200, Neut % (Auto) 79.4 H, Lymph % (Auto) 8.4 L, Franklin % (Auto) 6.6, Eos % (Auto) 5.1 H, Baso % (Auto) 0.3, Absolute Neuts (auto) 7.6, Absolute Lymphs (auto) 0.80 L, Total Counted Not Reportable 09/02/17 05:30: Sodium 145, Potassium 3.6, Chloride 111 H, Carbon Dioxide 25.0, Anion Gap 9, BUN 14, Creatinine 0.73, Estim Creat Clear Calc 38.10, Est GFR (MDRD) Af Amer 99, Est GFR (MDRD) Non-Af 82, BUN/Creatinine Ratio 19.3, Glucose 138 H, Calcium 8.3 L This note was generated with [employer] dictation software. Every effort was made to ensure accuracy, however computerized student counsellor mistakes may persist. Code Visit Inpatient E&M: 20876 Subs Hosp L2
--- NOTE | 2017-09-02 12:55 | CASEMGMT ---
Social Work Note SW received call from Aide at [facility] requesting pt's insurance cards be faxed to her. This worker faxed pt's insurance cards to Aide at [facility]. Plan: Discharge to [facility] Tuesday Isabel Magana MSW, RELIEF MATE
--- NOTE | 2017-09-02 14:06 | CASEMGMT ---
Social Work Note beef cattle farm manager Chris informed this worker that pt's son David had questions and wanted this worker to call him back. RADHA placed a call to David and answered questions. RADHA informed David that pt is all set to discharge to [facility] Tuesday and that transportation will be set up for pt on Tuesday. RADHA informed David that this worker is unsure of what time transportation will be as it depends on when the doctor discharges pt and when transportation is available. David states understanding. Plan: Discharge to [facility] Tuesday Isabel Magana INDEPENDENT CROP CONSULTANT, RESOLUTION MANAGER
[2017-09-02 15:43] VITALS: BP 153/70; PULSE 100; PULSE 102; RESP 18; TEMP 37; O2SAT 95
[2017-09-02 20:44] VITALS: BP 144/67; PULSE 101; RESP 18; TEMP 37.2; O2SAT 95
[2017-09-02] MEDS: Donepezil HCl 5 MG Tablet PO (21:34)
[2017-09-02] MEDS: Atorvastatin Calcium 40 MG Tablet PO (21:34)
[2017-09-03] MEDS: Acetaminophen 325 MG Tablet 650 MG PO ×2 (00:25→09:25)
[2017-09-03 02:24] VITALS: BP 150/87; PULSE 103; RESP 18; TEMP 37.1; O2SAT 94
[2017-09-03 07:42] VITALS: BP 179/92; PULSE 107; RESP 16; TEMP 37.1; O2SAT 94
[2017-09-03 07:51] LABS: Bedside Glucose 130 mg/dL (70-110)
[2017-09-03] MEDS: Aspirin 81 MG TAB.CHEW 162 MG PO (09:21)
[2017-09-03] MEDS: Sertraline 50 MG Tablet PO (09:22)
[2017-09-03] MEDS: Clopidogrel Bisulfate 75 MG Tablet PO (09:22)
[2017-09-03] MEDS: Lisinopril 10 MG Tablet PO (09:22)
[2017-09-03 09:23] VITALS: PULSE 82
[2017-09-03] MEDS: Metoprolol(XL)Succ 25 MG Tablet PO (09:23)
[2017-09-03] MEDS: Pantoprazole Sodium 20 MG Tablet PO (09:23)
[2017-09-03] MEDS: Heparin Injection (Vial) 5,000 UNIT/ML VIAL 5000 UNIT SC ×2 (09:24→22:40)
[2017-09-03] MEDS: Naproxen 250 MG Tablet 500 MG PO (11:18)
[2017-09-03 11:19] VITALS: BP 141/64; PULSE 94; RESP 16; TEMP 37; O2SAT 96
[2017-09-03 11:26] LABS: Bedside Glucose 142 mg/dL (70-110)
--- NOTE | 2017-09-03 12:59 | PCM.PN.HOSP ---
Patient Problems: Active and Suspected Problems (Last Updated 07/11/17 @ 13:02 by Angela Umana) Generalized weakness (Acute) Subjective: Patient complain of right-sided rib pain and laying on her right side. Patient moved her bowel. No fever or chills. Vitals/I&O's: Vital Signs Temp Pulse Resp BP Pulse Ox 98.6 F 94 16 141/64 H 96 09/03/17 11:19 09/03/17 11:19 09/03/17 11:19 09/03/17 11:19 09/03/17 11:19 Oxygen Delivery Method Room Air Intake and Output for Last 24 Hours 09/01/17 09/02/17 09/03/17 23:59 23:59 23:59 Intake Total 450 / 3288 1924 / 1924 849 / 849 Output Total 1125 / 1125 1225 / 1225 Balance 450 / 3088 799 / 799 -376 / -376 General: Alert, Oriented x3, Cooperative HEENT: Atraumatic, PERRLA, EOMI, Normocephalic Neck: Supple, No JVD, Negative Carotid Bruits Lungs: Clear to auscultation, No rhonchi, No wheeze, Diminished - Air entry diminished in bilateral lung bases Cardiovascular: Regular rate, Normal S1, Normal S2, No murmurs Abdomen: Bowel Sounds Present, Soft, Non Tender Extremities: No edema, Capillary Refill Less than 3 Seconds Skin: No rashes, No breakdown Musculoskeletal: No Tenderness to Palpation of Joints or Extremities, Tenderness - On left lower ribs Neurological: Cranial nerves II-XII grossly intact, Neuro grossly intact Psych/Mental Status: Normal Affect, Appropriate Microbiology Past 72 Hours 09/01/17 19:55 Urine, Clean Catch Urine Culture - Final Mixed Gram Positive Organisms Laboratory Results 09/03/17 07:35: POC Glucose 130 H 09/03/17 11:16: POC Glucose 142 H Current Medications Acetaminophen (Tylenol) 650 mg PO Q6H PRN PRN PRN Reason: Mild Pain (1-3)/Temp > 100.7 F Last Admin: 09/03/17 09:25 Dose: 650 mg Hydrocodone Bitart/Acetaminophen ([place] 5mg-325mg) 1 tablet PO Q4H PRN PRN PRN Reason: SEVERE PAIN (6-10/10) Aspirin (Aspirin, Baby) 162 mg PO DAILY@0800 [facility] Last Admin: 09/03/17 09:21 Dose: 162 mg Atorvastatin Calcium (Lipitor) 40 mg PO QHS [facility] Last Admin: 09/02/17 21:34 Dose: 40 mg Bisacodyl (Dulcolax) 10 mg RECTAL DAILY [facility] Last Admin: 09/03/17 08:29 Dose: Not Given Cholecalciferol (Vitamin D) 2,000 unit PO DAILY [facility] Last Admin: 09/03/17 09:22 Dose: 2,000 unit Clopidogrel Bisulfate (Plavix) 75 mg PO DAILY [facility] Last Admin: 09/03/17 09:22 Dose: 75 mg Donepezil HCl (Aricept) 5 mg PO QHS [facility] Last Admin: 09/02/17 21:34 Dose: 5 mg Heparin Sodium (Porcine) (Heparin Na) 5,000 unit SC Q12 [facility] Last Admin: 09/03/17 09:24 Dose: 5,000 units Letrozole (Femara) 2.5 mg PO DAILY [facility] Last Admin: 09/03/17 09:24 Dose: 2.5 mg Lisinopril (Zestril) 10 mg PO DAILY [facility] Last Admin: 09/03/17 09:22 Dose: 10 mg Metoprolol Succinate (Toprol Xl (Beta Bunny)) 25 mg PO DAILY [facility] Last Admin: 09/03/17 09:23 Dose: 25 mg Ondansetron HCl (Zofran) 4 mg IV Q8H PRN PRN PRN Reason: NAUSEA Pantoprazole Sodium (Protonix) 20 mg PO DAILY [facility] Last Admin: 09/03/17 09:23 Dose: 20 mg Sertraline HCl (Zoloft) 50 mg PO DAILY [facility] Last Admin: 09/03/17 09:22 Dose: 50 mg Sodium Chloride () 5 - 30 ml IV UD PRN PRN Reason: SALINE FLUSH Last Admin: 08/31/17 21:27 Dose: 10 ml Medical Necessity - Tobacco Use Smoking Status: Never smoker Tobacco Use: Non-smoker Assessment/Plan Active and Suspected Problems (Last Updated 07/11/17 @ 13:02 by Angela Umana) Generalized weakness (Acute) The patient is a 82 year old F seen in the emergency room at [facility] was admitted with complaints of generalized weakness and inability to live by herself. Earlier, patient sustained a fall on 08/30/2017 and was seen in the emergency room, it was noted at that time that she had left rib fractures of the sixth and seventh ribs. She also sustained a contusion to her scalp which was not severe. Patient has left-sided lower rib pain. She had fall with multiple bruises over left forehead, left lower chest with fracture of left sixth and seventh rib, left hip region. I Talked with the patient's [id number] and she explained she has gradual worsening of cognitive deficit and has been started on Aricept about a month ago. 1 generalized weakness and debility-secondary to age, medical problems including osteoarthritis, and recent left rib fractures-patient is status converted to inpatient. PT and OT. recommended SNF placement. # 2 recent left rib fractures-left sixth and seventh rib which occurred on 08/30/2017 after fall: CT chest was done on 08/30/2017 and shows compression fracture of T4 of indeterminate age. Fracture of left lateral sixth and seventh ribs. Questionable minimal infiltrate in the left lower lobe but no pneumothorax. Hyperinflation of the lungs. CT chest reviewed. Patient stated naproxen in the past has relieved her pain. 500 mg naproxen given for inflammatory rib pain. Denies history of gastric ulcer or acute kidney injury. 3. CKD stage III probably secondary to hypertension and coronary artery disease renal disease: Creatinine 0.73 with estimated GFR about 38 mL/min.. . Patient's [id number] upset with the diagnosis of COPD told by ER physician. She has never smoked. Denies chronic cough, sputum or shortness of breath at rest or exertion. I told its radiological finding but clinically she does not have symptoms of COPD coronary artery disease-appears stable at this time #4 hypertension #5 hyperlipidemia #6 osteoarthritis Chronic constipation: On stool softener, Dulcolax suppository and if does not relieve soapsuds enema. Patient had bowel movement on Dulcolax suppository Microbiology Past 72 Hours 09/01/17 19:55 Urine, Clean Catch Urine Culture - Final Mixed Gram Positive Organisms 09/02/17 05:30: WBC 9.6, RBC 3.24 L, Hgb 9.1 L, Hct 28.5 L, MCV 88.0, MCH 28.1, MCHC 31.9 L, RDW 14.6, RDW Differential 45.8 H, Plt Count 183, MPV 9.7, Immature Gran % (Auto) 0.200, Neut % (Auto) 79.4 H, Lymph % (Auto) 8.4 L, Bent % (Auto) 6.6, Eos % (Auto) 5.1 H, Baso % (Auto) 0.3, Absolute Neuts (auto) 7.6, Absolute Lymphs (auto) 0.80 L, Total Counted Not Reportable 09/02/17 05:30: Sodium 145, Potassium 3.6, Chloride 111 H, Carbon Dioxide 25.0, Anion Gap 9, BUN 14, Creatinine 0.73, Estim Creat Clear Calc 38.10, Est GFR (MDRD) Af Amer 99, Est GFR (MDRD) Non-Af 82, BUN/Creatinine Ratio 19.3, Glucose 138 H, Calcium 8.3 L This note was generated with [employer] dictation software. Every effort was made to ensure accuracy, however computerized fisher spear mistakes may persist. Code Visit Inpatient E&M: 23744 Subs Hosp L2
--- NOTE | 2017-09-03 13:08 | PN_ITS ---
Patient Problems: Active and Suspected Problems (Last Updated 07/11/17 @ 13:02 by Angela Umana) Generalized weakness (Acute) Subjective: Patient complain of right-sided rib pain and laying on her right side. Patient moved her bowel. No fever or chills. Vitals/I&O's: Vital Signs Temp Pulse Resp BP Pulse Ox 98.6 F 94 16 141/64 H 96 09/03/17 11:19 09/03/17 11:19 09/03/17 11:19 09/03/17 11:19 09/03/17 11:19 Oxygen Delivery Method Room Air Intake and Output for Last 24 Hours 09/01/17 09/02/17 09/03/17 23:59 23:59 23:59 Intake Total 450 / 3288 1924 / 1924 849 / 849 Output Total 1125 / 1125 1225 / 1225 Balance 450 / 3088 799 / 799 -376 / -376 General: Alert, Oriented x3, Cooperative HEENT: Atraumatic, PERRLA, EOMI, Normocephalic Neck: Supple, No JVD, Negative Carotid Bruits Lungs: Clear to auscultation, No rhonchi, No wheeze, Diminished - Air entry diminished in bilateral lung bases Cardiovascular: Regular rate, Normal S1, Normal S2, No murmurs Abdomen: Bowel Sounds Present, Soft, Non Tender Extremities: No edema, Capillary Refill Less than 3 Seconds Skin: No rashes, No breakdown Musculoskeletal: No Tenderness to Palpation of Joints or Extremities, Tenderness - On left lower ribs Neurological: Cranial nerves II-XII grossly intact, Neuro grossly intact Psych/Mental Status: Normal Affect, Appropriate Microbiology Past 72 Hours 09/01/17 19:55 Urine, Clean Catch Urine Culture - Final Mixed Gram Positive Organisms Laboratory Results 09/03/17 07:35: POC Glucose 130 H 09/03/17 11:16: POC Glucose 142 H Current Medications Acetaminophen (Tylenol) 650 mg PO Q6H PRN PRN PRN Reason: Mild Pain (1-3)/Temp > 100.7 F Last Admin: 09/03/17 09:25 Dose: 650 mg Hydrocodone Bitart/Acetaminophen ([place] 5mg-325mg) 1 tablet PO Q4H PRN PRN PRN Reason: SEVERE PAIN (6-10/10) Aspirin (Aspirin, Baby) 162 mg PO DAILY@0800 [facility] Last Admin: 09/03/17 09:21 Dose: 162 mg Atorvastatin Calcium (Lipitor) 40 mg PO QHS [facility] Last Admin: 09/02/17 21:34 Dose: 40 mg Bisacodyl (Dulcolax) 10 mg RECTAL DAILY [facility] Last Admin: 09/03/17 08:29 Dose: Not Given Cholecalciferol (Vitamin D) 2,000 unit PO DAILY [facility] Last Admin: 09/03/17 09:22 Dose: 2,000 unit Clopidogrel Bisulfate (Plavix) 75 mg PO DAILY [facility] Last Admin: 09/03/17 09:22 Dose: 75 mg Donepezil HCl (Aricept) 5 mg PO QHS [facility] Last Admin: 09/02/17 21:34 Dose: 5 mg Heparin Sodium (Porcine) (Heparin Na) 5,000 unit SC Q12 [facility] Last Admin: 09/03/17 09:24 Dose: 5,000 units Letrozole (Femara) 2.5 mg PO DAILY [facility] Last Admin: 09/03/17 09:24 Dose: 2.5 mg Lisinopril (Zestril) 10 mg PO DAILY [facility] Last Admin: 09/03/17 09:22 Dose: 10 mg Metoprolol Succinate (Toprol Xl (Beta Bunny)) 25 mg PO DAILY [facility] Last Admin: 09/03/17 09:23 Dose: 25 mg Ondansetron HCl (Zofran) 4 mg IV Q8H PRN PRN PRN Reason: NAUSEA Pantoprazole Sodium (Protonix) 20 mg PO DAILY [facility] Last Admin: 09/03/17 09:23 Dose: 20 mg Sertraline HCl (Zoloft) 50 mg PO DAILY [facility] Last Admin: 09/03/17 09:22 Dose: 50 mg Sodium Chloride () 5 - 30 ml IV UD PRN PRN Reason: SALINE FLUSH Last Admin: 08/31/17 21:27 Dose: 10 ml Medical Necessity - Tobacco Use Smoking Status: Never smoker Tobacco Use: Non-smoker Assessment/Plan Active and Suspected Problems (Last Updated 07/11/17 @ 13:02 by Angela Umana) Generalized weakness (Acute) The patient is a 82 year old F seen in the emergency room at [facility] was admitted with complaints of generalized weakness and inability to live by herself. Earlier, patient sustained a fall on 08/30/2017 and was seen in the emergency room, it was noted at that time that she had left rib fractures of the sixth and seventh ribs. She also sustained a contusion to her scalp which was not severe. Patient has left-sided lower rib pain. She had fall with multiple bruises over left forehead, left lower chest with fracture of left sixth and seventh rib, left hip region. I Talked with the patient's [id number] and she explained she has gradual worsening of cognitive deficit and has been started on Aricept about a month ago. 1 generalized weakness and debility-secondary to age, medical problems including osteoarthritis, and recent left rib fractures-patient is status converted to inpatient. PT and OT. recommended SNF placement. # 2 recent left rib fractures-left sixth and seventh rib which occurred on 2017 after fall: CT chest was done on 08/30/2017 and shows compression fracture of T4 of indeterminate age. Fracture of left lateral sixth and seventh ribs. Questionable minimal infiltrate in the left lower lobe but no pneumothorax. Hyperinflation of the lungs. CT chest reviewed. Patient stated naproxen in the past has relieved her pain. 500 mg naproxen given for inflammatory rib pain. Denies history of gastric ulcer or acute kidney injury. 3. CKD stage III probably secondary to hypertension and coronary artery disease renal disease: Creatinine 0.73 with estimated GFR about 38 mL/min.. . Patient's [id number] upset with the diagnosis of COPD told by ER physician. She has never smoked. Denies chronic cough, sputum or shortness of breath at rest or exertion. I told its radiological finding but clinically she does not have symptoms of COPD coronary artery disease-appears stable at this time #4 hypertension #5 hyperlipidemia #6 osteoarthritis Chronic constipation: On stool softener, Dulcolax suppository and if does not relieve soapsuds enema. Patient had bowel movement on Dulcolax suppository Microbiology Past 72 Hours 09/01/17 19:55 Urine, Clean Catch Urine Culture - Final Mixed Gram Positive Organisms 09/02/17 05:30: WBC 9.6, RBC 3.24 L, Hgb 9.1 L, Hct 28.5 L, MCV 88.0, MCH 28.1 , MCHC 31.9 L, RDW 14.6, RDW Differential 45.8 H, Plt Count 183, MPV 9.7, Immature Gran % (Auto) 0.200, Neut % (Auto) 79.4 H, Lymph % (Auto) 8.4 L, Burt % (Auto) 6.6, Eos % (Auto) 5.1 H, Baso % (Auto) 0.3, Absolute Neuts (auto) 7.6, Absolute Lymphs (auto) 0.80 L, Total Counted Not Reportable 09/02/17 05:30: Sodium 145, Potassium 3.6, Chloride 111 H, Carbon Dioxide 25.0, Anion Gap 9, BUN 14, Creatinine 0.73, Estim Creat Clear Calc 38.10, Est GFR ( MDRD) Af Amer 99, Est GFR (MDRD) Non-Af 82, BUN/Creatinine Ratio 19.3, Glucose 138 H, Calcium 8.3 L This note was generated with [employer] dictation software. Every effort was made to ensure accuracy, however computerized air filler mistakes may persist. Code Visit Inpatient E&M: 98380 Subs Hosp L2
[2017-09-03 15:04] VITALS: BP 153/74; PULSE 98; RESP 16; TEMP 37.1; O2SAT 98
[2017-09-03 16:25] LABS: Bedside Glucose 142 mg/dL (70-110)
[2017-09-03 20:22] VITALS: BP 142/77; PULSE 101; RESP 16; TEMP 37.2; O2SAT 96
[2017-09-03] MEDS: Atorvastatin Calcium 40 MG Tablet PO (22:40)
[2017-09-03] MEDS: Donepezil HCl 5 MG Tablet PO (22:40)
[2017-09-03] MEDS: Naproxen 250 MG Tablet PO (22:40)
[2017-09-04 02:36] VITALS: BP 139/68; PULSE 97; RESP 16; TEMP 37.1; O2SAT 94
[2017-09-04 08:30] VITALS: BP 151/80; PULSE 104; RESP 18; TEMP 36.9; O2SAT 94
[2017-09-04] MEDS: Aspirin 81 MG TAB.CHEW 162 MG PO (09:36)
[2017-09-04] MEDS: Naproxen 250 MG Tablet PO (09:38)
[2017-09-04 09:39] VITALS: BP 151/80; PULSE 104
[2017-09-04] MEDS: Pantoprazole Sodium 40 MG Tablet PO (09:39)
[2017-09-04] MEDS: Clopidogrel Bisulfate 75 MG Tablet PO (09:39)
[2017-09-04] MEDS: Metoprolol(XL)Succ 25 MG Tablet PO (09:39)
[2017-09-04] MEDS: Lisinopril 10 MG Tablet PO (09:40)
[2017-09-04] MEDS: Sertraline 50 MG Tablet PO (09:40)
[2017-09-04] MEDS: Heparin Injection (Vial) 5,000 UNIT/ML VIAL 5000 UNIT SC (09:41)
--- NOTE | 2017-09-04 11:30 | PCM.TXEXTCAR ---
- Routine Orders/Code Status Suppository Type: Dulcolax 10mg Suppository Frequency: Daily PRN Routine Lab Work: CBC - on 09/07/17, BMP - on 09/07/17 - Wound(s) Left elbow Wound Type: Abrasion - Therapies Weight Bearing: Weight bearing as tolerated Physical Therapy: Eval and Treat Occupational Therapy: Eval and Treat Speech Therapy: Eval and Treat - Allergies/Procedures Done in Hospital Allergies/Adverse Reactions: Allergies sulfamethoxazole [From ] Allergy (Verified 08/30/17 17:11) Unknown trimethoprim [From ] Allergy (Verified 08/30/17 17:11) Unknown - Type of Care/Length of Stay Estimated LOS: Convalescent Care Less Than 30 days Type of Care Needed: Skilled Rehab Potential: Good Prognosis: Good - Additional Orders/Day of Discharge Day of Discharge: 09/04/17 - Follow Up Care Primary Care Physician: Dereck Phillips III, MD [Primary Care Provider] - Please follow up with your Primary Care Physician in: in 2 weeks
--- NOTE | 2017-09-04 12:59 | PCM.DC.SUM ---
Discharge Date and Diagnosis Date of Admission: 08/31/17 Date of Discharge: 09/04/17 - Primary Discharge Diagnosis Active and Suspected Problems (Last Updated 07/11/17 @ 13:02 by Angela Umana) 1 generalized weakness and debility-secondary to age, medical problems including osteoarthritis, and recent left lateral sixth and seventh ribs fractures- # 2 recent left rib fractures-left sixth and seventh rib which occurred on 08/30/2017 after fall: 3. CKD stage III probably secondary to hypertension and coronary artery disease renal disease: Creatinine 0.73 with estimated GFR about 38 mL/min.. 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 was admitted with complaints of generalized weakness and inability to live by herself. Earlier, patient sustained a fall on 08/30/2017 and was seen in the emergency room, it was noted at that time that she had left rib fractures of the sixth and seventh ribs. She also sustained a contusion to her scalp which was not severe. Patient has left-sided lower rib pain. She had fall with multiple bruises over left forehead, left lower chest with fracture of left sixth and seventh rib, left hip region. I discussed with the patient's [id number] and she explained she has gradual worsening of cognitive deficit and has been started on Aricept about a month ago. Seen and examined today Patient had significant relief of right-sided lower chest pain and diffuse musculoskeletal pain with Aleve/naproxen. continue naproxen 250 mg twice daily for 3 days and then as needed for pain General: Alert, Oriented x3, Cooperative HEENT: Atraumatic, PERRLA, EOMI, Normocephalic Neck: Supple, No JVD, Negative Carotid Bruits Lungs: Clear to auscultation, No rhonchi, No wheeze, Diminished - Air entry diminished in bilateral lung bases Cardiovascular: Regular rate, Normal S1, Normal S2, No murmurs Abdomen: Bowel Sounds Present, Soft, Non Tender Extremities: No edema, Capillary Refill Less than 3 Seconds Skin: No rashes, No breakdown Musculoskeletal: No Tenderness to Palpation of Joints or Extremities, Tenderness - On left lower ribs Neurological: Cranial nerves II-XII grossly intact, Neuro grossly intact Psych/Mental Status: Normal Affect, Appropriate 1 generalized weakness and debility-secondary to age, medical problems including osteoarthritis, and recent left rib fractures-patient is status converted to inpatient. PT and OT. recommended SNF placement. Patient is being transferred to SNF for further PT and OT. # 2 recent left rib fractures-left sixth and seventh rib which occurred on 08/30/2017 after fall: CT chest was done on 08/30/2017 and shows compression fracture of T4 of indeterminate age. Fracture of left lateral sixth and seventh ribs. Questionable minimal infiltrate in the left lower lobe but no pneumothorax. Hyperinflation of the lungs. CT chest reviewed. Patient stated naproxen in the past has relieved her pain. 500 mg naproxen given for inflammatory rib pain. Denies history of gastric ulcer or acute kidney injury. It is on PPI 3. CKD stage III probably secondary to hypertension and coronary artery disease renal disease: Creatinine 0.73 with estimated GFR about 38 mL/min. No clinical diagnosis of COPD coronary artery disease-appears stable at this time #4 hypertension #5 hyperlipidemia #6 osteoarthritis Chronic constipation: On stool softener, Dulcolax suppository and if does not relieve soapsuds enema. Patient had bowel movement on Dulcolax suppository Discharge medication reconciliation done. Transfer extended care instructions completed. Total time spent, exact 35 minutes on discharge meds reconciliation, examination, review of imaging and blood test and discussion with the patient on follow-up instructions. Home Medications: Medications to take at Discharge Cholecalciferol (VIT D3) [Vitamin D3] 2,000 unit PO DAILY 07/21/14 Clopidogrel Bisulfate [Plavix] 75 mg PO DAILY 07/21/14 Letrozole [Femara] 2.5 mg PO DAILY 07/21/14 Metoprolol(XL)Succ [Toprol Xl (Beta Bunny)] 25 mg PO DAILY 07/21/14 Sertraline HCl [Zoloft] 50 mg PO DAILY 07/21/14 atorvastatin 40 mg tablet 40 mg PO DAILY 07/05/17 benazepril 20 mg tablet 20 mg PO DAILY 90 Days #90 07/11/17 Donepezil HCl [Aricept] 5 mg PO QHS 08/31/17 Acetaminophen [Tylenol Tablet] 650 mg PO Q6H PRN PRN tablet 09/04/17 Aspirin [Aspirin, Baby] 81 mg PO DAILY@0800 #0 09/04/17 Bisacodyl [Dulcolax] 10 mg RECTAL DAILY PRN PRN suppos. 09/04/17 Naproxen [Naprosyn] 250 mg PO BID@1000,1700 tablet 09/04/17 Omeprazole 40 mg PO DAILY #0 09/04/17 Oxycodone [Oxyir] 5 mg PO Q6H PRN PRN 4 Days #7 tab 09/04/17 Following Prescrptions Were Given to Patient: Oxycodone [Oxyir] 5 mg PO Q6H PRN PRN 4 Days #7 tab PRN Reason: Pain Primary Care Physician: Dereck Phillips III, MD [Primary Care Provider] - Please follow up with your Primary Care Physician in: in 2 weeks Medical Necessity - Tobacco Use Smoking Status: Never smoker Tobacco Use: Non-smoker Meaningful Use Info Meaningful Use Diagnoses (Choose all that apply): None applicable Code Visit Inpatient E&M: 28874 Disch Hosp
[2017-09-04 13:22] VITALS: BP 97/55; PULSE 69; RESP 18; TEMP 37.7; O2SAT 96
== END 2017-09-04 14:05 | disposition skilled nursing facility (03) | DRG 184 ==
LOC: ED 14:10 → MS3 16:38
PROVIDERS: Admitting Provider Internal Medicine; Emergency Provider Emergency Medicine; Family Provider Family Medicine; PCP Family Medicine; Visit Provider Internal Medicine
DX: S22.42XA Multiple fractures of ribs, left side, initial encounter for closed fracture (principal); M48.54XA Collapsed vertebra, not elsewhere classified, thoracic region, initial encounter for fracture; R53.1 Weakness; R54 Age-related physical debility; W19.XXXA Unspecified fall, initial encounter; E78.5 Hyperlipidemia, unspecified; I25.10 Atherosclerotic heart disease of native coronary artery without angina pectoris; Z95.5 Presence of coronary angioplasty implant and graft; Z95.1 Presence of aortocoronary bypass graft; M19.90 Unspecified osteoarthritis, unspecified site; K59.09 Other constipation; S00.83XA Contusion of other part of head, initial encounter; S70.02XA Contusion of left hip, initial encounter; N18.3 Chronic kidney disease, stage 3 (moderate); I12.9 Hypertensive chronic kidney disease with stage 1 through stage 4 chronic kidney disease, or unspecified chronic kidney disease; S00.03XA Contusion of scalp, initial encounter
CPT/HCPCS: 36415; 70450; 71250; 73080; 73564; 80048; 81001; 82962; 85025; 87086; 87088; 90471; 90715; 97116; 97162; 97165; 97530; 97535; 99282; 99284; J7030; A4216; J7799

== ENCOUNTER → 2017-10-17 05:00 | Outpatient (REF) | payer MEDICARE, OTHER, SELFPAY ==
[2017-10-17 09:27] LABS: Hematocrit 35.7 % (37-47); Hemoglobin 11.1 g/dl (12.0-15.0); Mean Corp Hgb Conc 31.1 g/gl (32-36); Mean Corpuscular Hgb 27.3 pg (27.0-32.0); Mean Corpuscular Volume 87.9 fL (81-99); Mean Platelet Vol. 9.6 fl (6.2-12.0); Platelet Count 276 K/mm3 (150-450); RBC Distribution Width CV 14.7 % (11.6-14.6); RBC Distribution Width SD 47.5 fl (35.1-43.9); Red Blood Count 4.06 M/mm3 (4.2-5.4); White Blood Count 5.6 K/mm3 (4.4-11.0)
[2017-10-17 09:33] LABS: Scan Indicated on CBC? Y/N NO
[2017-10-17 09:43] LABS: Anion Gap 7 (5-15); BUN 10 mg/dL (7-18); BUN/Creat Ratio 14.6 RATIO (10-20); Calcium,Total 9.1 mg/dL (8.5-10.1); Chloride 108 mmol/L (98-107); Creatinine, Serum 0.68 mg/dL (0.55-1.02); EST Glomerular Filtration Rate 88 mL/min (>60); Est Glom Filt Rate - Afr Amer 106 mL/min (>60); Glucose 90 mg/dL (74-106); Potassium 4.2 mmol/L (3.5-5.1); Sodium Level 144 mmol/L (136-145)
== END ==
LOC: OLS.WHLTSB 05:00
PROVIDERS: Visit Provider Family Medicine
DX: I25.10 Atherosclerotic heart disease of native coronary artery without angina pectoris (principal); D64.9 Anemia, unspecified; I10 Essential (primary) hypertension; E78.5 Hyperlipidemia, unspecified; E55.9 Vitamin D deficiency, unspecified
CPT/HCPCS: 36415; 80048; 85027

== ENCOUNTER → 2017-11-16 05:00 | Outpatient (REF) | payer MEDICARE, OTHER, SELFPAY ==
[2017-11-16 07:35] LABS: Hematocrit 33.1 % (37-47); Hemoglobin 10.3 g/dl (12.0-15.0); Mean Corp Hgb Conc 31.1 g/gl (32-36); Mean Corpuscular Hgb 27.3 pg (27.0-32.0); Mean Corpuscular Volume 87.8 fL (81-99); Mean Platelet Vol. 9.6 fl (6.2-12.0); Platelet Count 286 K/mm3 (150-450); RBC Distribution Width SD 48.2 fl (35.1-43.9); Red Blood Count 3.77 M/mm3 (4.2-5.4); White Blood Count 5.4 K/mm3 (4.4-11.0)
[2017-11-16 07:43] LABS: Anion Gap 3 (5-15); BUN 9 mg/dL (7-18); BUN/Creat Ratio 11.7 RATIO (10-20); Calcium,Total 9.2 mg/dL (8.5-10.1); Chloride 109 mmol/L (98-107); Creatinine, Serum 0.77 mg/dL (0.55-1.02); EST Glomerular Filtration Rate 77 mL/min (>60); Est Glom Filt Rate - Afr Amer 93 mL/min (>60); Glucose 81 mg/dL (74-106); Potassium 4.7 mmol/L (3.5-5.1); Sodium Level 145 mmol/L (136-145)
[2017-11-16 07:47] LABS: Scan Indicated on CBC? Y/N NO
== END ==
LOC: OLS.WHLTSB 05:00
PROVIDERS: Visit Provider Family Medicine
DX: D64.9 Anemia, unspecified (principal); I10 Essential (primary) hypertension; E78.5 Hyperlipidemia, unspecified; I25.10 Atherosclerotic heart disease of native coronary artery without angina pectoris; E55.9 Vitamin D deficiency, unspecified
CPT/HCPCS: 36415; 80048; 85027

== ENCOUNTER → 2017-12-14 05:00 | Outpatient (REF) | payer MEDICARE, OTHER, SELFPAY ==
[2017-12-14 07:35] LABS: Hematocrit 32.1 % (37-47); Hemoglobin 10.1 g/dl (12.0-15.0); Mean Corp Hgb Conc 31.5 g/gl (32-36); Mean Corpuscular Hgb 28.1 pg (27.0-32.0); Mean Corpuscular Volume 89.2 fL (81-99); Mean Platelet Vol. 9.9 fl (6.2-12.0); Platelet Count 278 K/mm3 (150-450); RBC Distribution Width SD 48.2 fl (35.1-43.9); White Blood Count 5.5 K/mm3 (4.4-11.0)
[2017-12-14 07:37] LABS: Scan Indicated on CBC? Y/N NO
[2017-12-14 07:43] LABS: Anion Gap 9 (5-15); BUN 16 mg/dL (7-18); BUN/Creat Ratio 19.6 RATIO (10-20); Chloride 110 mmol/L (98-107); Creatinine, Serum 0.82 mg/dL (0.55-1.02); EST Glomerular Filtration Rate 71 mL/min (>60); Est Glom Filt Rate - Afr Amer 86 mL/min (>60); Glucose 91 mg/dL (74-106); Potassium 4.3 mmol/L (3.5-5.1); Sodium Level 146 mmol/L (136-145)
== END ==
LOC: OLS.WHLTSB 05:00
PROVIDERS: Visit Provider Family Medicine
DX: D64.9 Anemia, unspecified (principal); I10 Essential (primary) hypertension; E55.9 Vitamin D deficiency, unspecified; I25.10 Atherosclerotic heart disease of native coronary artery without angina pectoris
CPT/HCPCS: 36415; 80048; 85027

== ENCOUNTER → 2017-12-16 08:49 | Outpatient (REF) | payer MEDICARE, OTHER, SELFPAY | LOC: OLS.WHLTSB 08:49 | PROVIDERS: Visit Provider Family Medicine | DX: D64.9 Anemia, unspecified (principal) | CPT/HCPCS: 82274 ==

== ENCOUNTER → 2018-01-06 04:00 | Outpatient (REF) | payer MEDICARE, OTHER, SELFPAY ==
[2018-01-06 09:43] LABS: Hematocrit 33.1 % (37-47); Hemoglobin 10.8 g/dl (12.0-15.0); Mean Corp Hgb Conc 32.6 g/gl (32-36); Mean Corpuscular Hgb 29.1 pg (27.0-32.0); Mean Corpuscular Volume 89.2 fL (81-99); Mean Platelet Vol. 9.7 fl (6.2-12.0); Platelet Count 335 K/mm3 (150-450); RBC Distribution Width CV 14.9 % (11.6-14.6); RBC Distribution Width SD 48.2 fl (35.1-43.9); Red Blood Count 3.71 M/mm3 (4.2-5.4); Scan Indicated on CBC? Y/N NO
[2018-01-06 09:55] LABS: AST(SGOT) 19 U/L (15-37); Alanine Aminotransfer ALT/SGPT 15 U/L (13-56); Albumin, Serum 3.3 g/dL (3.2-5.0); Alkaline Phosphatase 118 U/L (45-117); Bilirubin, Direct 0.14 mg/dL (0.00-0.30); Cholesterol 148 mg/dL (200); Ferritin 35 ng/mL (8-252); Globulin 3.9 g/dL (2.2-4.2); High Density Lipoprotein 44 mg/dL; Iron 59 ug/dL (50-170); Iron Binding Capacity,Total 324 ug/dL (250-450); Protein, Total 7.2 g/dL (6.4-8.2); Triglycerides 85 mg/dL; Very Low Density Lipoprotein 17 mg/dL (5-40)
== END ==
LOC: OLS.WHLTSB 04:00
PROVIDERS: Visit Provider Family Medicine
DX: D64.9 Anemia, unspecified (principal); I10 Essential (primary) hypertension; E78.5 Hyperlipidemia, unspecified; I25.10 Atherosclerotic heart disease of native coronary artery without angina pectoris
CPT/HCPCS: 36415; 80061; 80076; 82728; 83540; 83550; 85027

== ENCOUNTER → 2018-01-18 05:00 | Outpatient (REF) | payer MEDICARE, OTHER, SELFPAY ==
[2018-01-18 09:09] LABS: Hematocrit 32.3 % (37-47); Hemoglobin 10.3 g/dl (12.0-15.0); Mean Corp Hgb Conc 31.9 g/gl (32-36); Mean Corpuscular Hgb 28.5 pg (27.0-32.0); Mean Corpuscular Volume 89.2 fL (81-99); Mean Platelet Vol. 9.1 fl (6.2-12.0); Platelet Count 250 K/mm3 (150-450); RBC Distribution Width CV 15.2 % (11.6-14.6); RBC Distribution Width SD 49.7 fl (35.1-43.9); Red Blood Count 3.62 M/mm3 (4.2-5.4); White Blood Count 5.1 K/mm3 (4.4-11.0)
[2018-01-18 09:11] LABS: Scan Indicated on CBC? Y/N NO
[2018-01-18 09:24] LABS: Anion Gap 5 (5-15); BUN 15 mg/dL (7-18); BUN/Creat Ratio 14.7 RATIO (10-20); Calcium,Total 8.8 mg/dL (8.5-10.1); Chloride 107 mmol/L (98-107); Creatinine, Serum 1.02 mg/dL (0.55-1.02); EST Glomerular Filtration Rate 55 mL/min (>60); Est Glom Filt Rate - Afr Amer 67 mL/min (>60); Glucose 85 mg/dL (74-106); Potassium 4.7 mmol/L (3.5-5.1); Sodium Level 142 mmol/L (136-145)
[2018-02-09 12:10] VITALS: BMI 23.8
== END ==
LOC: OLS.WHLTSB 05:00
PROVIDERS: Visit Provider Family Medicine
DX: D64.9 Anemia, unspecified (principal); I10 Essential (primary) hypertension; E78.5 Hyperlipidemia, unspecified; I25.10 Atherosclerotic heart disease of native coronary artery without angina pectoris; E55.9 Vitamin D deficiency, unspecified
CPT/HCPCS: 36415; 80048; 85027

== ENCOUNTER → 2018-02-16 07:35 | Outpatient (REF) | payer MEDICARE, OTHER, SELFPAY ==
[2018-02-16 08:48] LABS: Hematocrit 35.7 % (37-47); Hemoglobin 11.4 g/dl (12.0-15.0); Mean Corp Hgb Conc 31.9 g/gl (32-36); Mean Corpuscular Hgb 29.5 pg (27.0-32.0); Mean Corpuscular Volume 92.5 fL (81-99); Mean Platelet Vol. 9.5 fl (6.2-12.0); Platelet Count 279 K/mm3 (150-450); RBC Distribution Width CV 14.5 % (11.6-14.6); RBC Distribution Width SD 47.5 fl (35.1-43.9); Red Blood Count 3.86 M/mm3 (4.2-5.4); White Blood Count 5.1 K/mm3 (4.4-11.0)
[2018-02-16 08:49] LABS: Scan Indicated on CBC? Y/N NO
[2018-02-16 08:59] LABS: Anion Gap 4 (5-15); BUN 22 mg/dL (7-18); Calcium,Total 8.7 mg/dL (8.5-10.1); Chloride 108 mmol/L (98-107); EST Glomerular Filtration Rate 51 mL/min (>60); Est Glom Filt Rate - Afr Amer 61 mL/min (>60); Glucose 88 mg/dL (74-106); Potassium 4.7 mmol/L (3.5-5.1); Sodium Level 141 mmol/L (136-145)
== END ==
LOC: OLS.WHLTSB 07:35
PROVIDERS: Visit Provider Family Medicine
DX: I25.10 Atherosclerotic heart disease of native coronary artery without angina pectoris (principal); I10 Essential (primary) hypertension; D64.9 Anemia, unspecified; E78.5 Hyperlipidemia, unspecified; E55.9 Vitamin D deficiency, unspecified
CPT/HCPCS: 36415; 80048; 85027

== ENCOUNTER → 2018-02-28 09:30 | Outpatient (REF) | payer MEDICARE, OTHER, SELFPAY ==
[2018-02-09 12:10] VITALS: BMI 23.8
[2018-02-28 12:45] LABS: Color, Urine Yellow (Yellow); Glucose, Dipstick Normal (Normal); Ketone-Dipstick Negative (Negative); Leukocyte Esterase-Dipstick 500 /ul (Negative); Nitrite-Dipstick Negative (Negative); Occult Blood-Urine Negative /ul (Negative); Protein-Dipstick 15 mg/dl (Negative); Specific Gravity, Urine 1.015 (1.002-1.030); Urine Bilirubin Dipstick Negative (Negative); Urine Clarity Sl. Cloudy (Clear); Urine Urobilinogen 1 mg/dl (Normal)
== END ==
LOC: OLS.WHLTSB 09:30
PROVIDERS: Visit Provider Family Medicine
DX: R11.2 Nausea with vomiting, unspecified (principal); R19.7 Diarrhea, unspecified
CPT/HCPCS: 81002; 87086; 87088

== ENCOUNTER → 2018-03-15 05:00 | Outpatient (REF) | payer MEDICARE, OTHER, SELFPAY ==
[2018-03-15 08:30] LABS: Hematocrit 33.1 % (37-47); Hemoglobin 10.4 g/dl (12.0-15.0); Mean Corp Hgb Conc 31.4 g/gl (32-36); Mean Corpuscular Hgb 29.4 pg (27.0-32.0); Mean Corpuscular Volume 93.5 fL (81-99); Platelet Count 372 K/mm3 (150-450); RBC Distribution Width CV 13.4 % (11.6-14.6); Red Blood Count 3.54 M/mm3 (4.2-5.4); White Blood Count 5.2 K/mm3 (4.4-11.0)
[2018-03-15 08:35] LABS: Scan Indicated on CBC? Y/N NO
[2018-03-15 08:40] LABS: Anion Gap 7 (5-15); BUN 15 mg/dL (7-18); BUN/Creat Ratio 15.3 RATIO (10-20); Calcium,Total 8.7 mg/dL (8.5-10.1); Chloride 108 mmol/L (98-107); Creatinine, Serum 0.98 mg/dL (0.55-1.02); EST Glomerular Filtration Rate 58 mL/min (>60); Est Glom Filt Rate - Afr Amer 70 mL/min (>60); Glucose 81 mg/dL (74-106); Potassium 4.5 mmol/L (3.5-5.1); Sodium Level 144 mmol/L (136-145)
== END ==
LOC: OLS.WHLTSB 05:00
PROVIDERS: Visit Provider Family Medicine
DX: D64.9 Anemia, unspecified (principal); I10 Essential (primary) hypertension; E78.5 Hyperlipidemia, unspecified; I25.10 Atherosclerotic heart disease of native coronary artery without angina pectoris; E55.9 Vitamin D deficiency, unspecified
CPT/HCPCS: 36415; 80048; 85027

== ENCOUNTER → 2018-04-14 05:00 | Outpatient (REF) | payer MEDICARE, OTHER, SELFPAY ==
[2018-04-14 07:20] LABS: Hematocrit 32.8 % (37-47); Hemoglobin 10.5 g/dl (12.0-15.0); Mean Corpuscular Hgb 29.7 pg (27.0-32.0); Mean Corpuscular Volume 92.9 fL (81-99); Mean Platelet Vol. 9.3 fl (6.2-12.0); Platelet Count 278 K/mm3 (150-450); RBC Distribution Width CV 12.8 % (11.6-14.6); RBC Distribution Width SD 41.8 fl (35.1-43.9); Red Blood Count 3.53 M/mm3 (4.2-5.4); White Blood Count 4.6 K/mm3 (4.4-11.0)
[2018-04-14 07:26] LABS: Scan Indicated on CBC? Y/N NO
[2018-04-14 07:29] LABS: Anion Gap 8 (5-15); BUN 21 mg/dL (7-18); BUN/Creat Ratio 21.1 RATIO (10-20); Calcium,Total 8.8 mg/dL (8.5-10.1); Chloride 108 mmol/L (98-107); EST Glomerular Filtration Rate 57 mL/min (>60); Est Glom Filt Rate - Afr Amer 69 mL/min (>60); Glucose 130 mg/dL (74-106); Potassium 4.2 mmol/L (3.5-5.1); Sodium Level 142 mmol/L (136-145)
== END ==
LOC: OLS.WHLTSB 05:00
PROVIDERS: Visit Provider Family Medicine
DX: D64.9 Anemia, unspecified (principal); I10 Essential (primary) hypertension; E78.5 Hyperlipidemia, unspecified; I25.10 Atherosclerotic heart disease of native coronary artery without angina pectoris; E55.9 Vitamin D deficiency, unspecified
CPT/HCPCS: 36415; 80048; 85027

== ENCOUNTER → 2018-05-15 04:30 | Outpatient (REF) | payer MEDICARE, OTHER, SELFPAY ==
[2018-05-15 07:09] LABS: Hematocrit 32.7 % (37-47); Hemoglobin 10.4 g/dl (12.0-15.0); Mean Corp Hgb Conc 31.8 g/gl (32-36); Mean Corpuscular Hgb 29.5 pg (27.0-32.0); Mean Corpuscular Volume 92.6 fL (81-99); Mean Platelet Vol. 9.5 fl (6.2-12.0); Platelet Count 246 K/mm3 (150-450); RBC Distribution Width CV 13.1 % (11.6-14.6); RBC Distribution Width SD 43.1 fl (35.1-43.9); Red Blood Count 3.53 M/mm3 (4.2-5.4); White Blood Count 5.2 K/mm3 (4.4-11.0)
[2018-05-15 07:16] LABS: Anion Gap 8 (5-15); BUN 23 mg/dL (7-18); BUN/Creat Ratio 25.1 RATIO (10-20); Chloride 109 mmol/L (98-107); Creatinine, Serum 0.92 mg/dL (0.55-1.02); EST Glomerular Filtration Rate 62 mL/min (>60); Est Glom Filt Rate - Afr Amer 75 mL/min (>60); Glucose 88 mg/dL (74-106); Potassium 4.6 mmol/L (3.5-5.1); Sodium Level 144 mmol/L (136-145)
[2018-05-15 07:25] LABS: Scan Indicated on CBC? Y/N NO
--- OUTSIDE RECORDS SUMMARY | 2018-07-17 13:49 | XMS RPT_ITS ---
:1935 Author Organization OHIP Support Name Relationship Address Phone R Unavailable Unavailable Unavailable David Menezes Unavailable [address] + [place] [address] Lore Menezes Unavailable [address] + [place] [address] R Unavailable Unavailable Unavailable David Menezes Unavailable [address] + [place] [address] Lore Menezes Unavailable [address] + [place] [address] R Unavailable Unavailable Unavailable David Menezes Unavailable [address] + [place] [address] Lore Menezes Unavailable [address] + [place] [address] R Unavailable Unavailable Unavailable David Menezes Unavailable [address] + [place] [address] Lore Menezes Unavailable [address] + [place] [address] R Unavailable Unavailable Unavailable David Menezes Unavailable [address] + [place] [address] Lore Menezes Unavailable [address] + [place] [address] R Unavailable Unavailable Unavailable David Menezes Unavailable [address] + [place] [address] Lore Menezes Unavailable [address] + [place] [address] R Unavailable Unavailable Unavailable David Menezes Unavailable [address] + [place] [address] Lore Menezes Unavailable [address] + [place] [address] R Unavailable Unavailable Unavailable David Menezes Unavailable [address] + [place] [address] Lore Menezes Unavailable [address] + [place] [address] R Unavailable Unavailable Unavailable Menezes, David Unavailable [address] + [place] [address] Menezes, Lore Unavailable [address] + [place] [address] R Unavailable Unavailable Unavailable Ariel Menezesian Unavailable [address] + [place] [address] Menezes, Lore Unavailable [address] + [place] [address] R Unavailable Unavailable Unavailable Clif David Unavailable [address] + [place] [address] Menezes, Lore Unavailable [address] + [place] [address] R Unavailable Unavailable Unavailable Ariel Menezesian Unavailable [address] + [place] [address] Menezes, Lore Unavailable [address] + [place] [address] R Unavailable Unavailable Unavailable Ariel Menezesian Unavailable [address] + [place] [address] Menezes, Lore Unavailable [address] + [place] [address] R Unavailable Unavailable Unavailable CLIF DAVID Unavailable [address] [phone] [place] [address] MENEZES, LORE Unavailable [address] [phone] [place] [address] R Unavailable Unavailable Unavailable ARIEL MENEZESIAN Unavailable [address] [phone] [place] [address] MENEZES, LORE Unavailable [address] [phone] [place] [address] R Unavailable Unavailable Unavailable MENEZES, DAVID Unavailable [address] [phone] [place] [address] MENEZES, LORE Unavailable [address] [phone] [place] [address] R Unavailable Unavailable Unavailable CLIF, DAVID Unavailable [address] [phone] [place] [address] MENEZES, LORE Unavailable [address] [phone] [place] [address] R Unavailable Unavailable Unavailable MENEZES, DAVID Unavailable [address] [facility] [phone] [place] [address] MENEZES, LORE Unavailable [address] [facility] [phone] [place] [address] R Unavailable Unavailable Unavailable ARIEL MENEZESIAN Unavailable [address] [facility] [phone] [place] [address] MENEZES, LORE Unavailable [address] [facility] [phone] [place] [address] R Unavailable Unavailable Unavailable ARIEL MENEZESIAN Unavailable [address] [facility] [phone] [place] [address] MENEZES, LORE Unavailable [address] [facility] [phone] [place] [address] R Unavailable Unavailable Unavailable ARIEL MENEZESIAN Unavailable [address] [facility] [phone] [place] [address] MENEZES, LORE Unavailable [address] [facility] [phone] [place] [address] R Unavailable Unavailable Unavailable ARIEL MENEZESIAN Unavailable [facility] [phone] [place] [address] MENEZES, LORE Unavailable [facility] [phone] [place] [address] R Unavailable Unavailable Unavailable ARIEL MENEZESIAN Unavailable [facility] [phone] [place] [address] MENEZES, LORE Unavailable [facility] [phone] [place] [address] Care Team Providers Name Role Phone JERRY MENEZES (GUIDANCE COUNSELOR) Attending Unavailable JERRY MENEZES (GUIDANCE COUNSELOR) Referring Unavailable CEBUL III, FLORENCE Blanka Referring Unavailable EVER ROSE Attending Unavailable CEBUL III, FLORENCE A Referring Unavailable EVER ROSE Referring Unavailable CEBUL III, FLORENCE A Referring Unavailable Eze Mckeon Attending Unavailable Cebul III, [place] Attending Unavailable Sachin De La Cruz Attending Unavailable Jono, Sachin Referring Unavailable Cebul III, [place] Primary Care Unavailable Jenny Denson Attending Unavailable Cebul III, [place] Referring Unavailable Cebul III, [place] Primary Care Unavailable Cebul III, [place] Primary Care Unavailable Luis Colon Attending Unavailable Carmen Shane Attending Unavailable Cebul III, [place] Referring Unavailable Cebul III, [place] Primary Care Unavailable Tereletsky, Paul Admitting Unavailable Chong, Tapan Attending Unavailable Tereletsky, Paul Admitting Unavailable Tereletsky, Paul Attending Unavailable Cebul III, [place] Primary Care Unavailable Tereletsky, Paul Consulting Unavailable Tereletsky, Paul Admitting Unavailable Chong, Tapan Attending Unavailable Cebul III, [place] Primary Care Unavailable Chong, Tapan Consulting Unavailable Tereletsky, Paul Admitting Unavailable Chong, Tapan Attending Unavailable Cebul III, [place] Primary Care Unavailable Chong, Tapan Consulting Unavailable Tereletsky, Paul Admitting Unavailable Chong, Tapan Attending Unavailable Cebul III, [place] Primary Care Unavailable Chong, Tapan Consulting Unavailable Tereletsky, Paul Admitting Unavailable Chong, Tapan Attending Unavailable Cebul III, [place] Primary Care Unavailable Chong, Tapan Consulting Unavailable Eze Mckeon Attending Unavailable Cebul III, [place] Attending Unavailable Cebul III, [place] Attending Unavailable Cebul III, [place] Attending Unavailable Cebul III, [place] Attending Unavailable Cebul III, [place] Attending Unavailable Cebul III, [place] Attending Unavailable Cebul III, [place] Referring Unavailable Jenny Denson Attending Unavailable Mike, Eze Attending Unavailable Eze Mckeon Attending Unavailable Cebul III, [place] Attending Unavailable PROBLEMS PROBLEMS DATE TYPE CONDITION / CODE ATTENDING STATUS SOURCE 05/04/2018 Unknown E55.9 - Vitamin D Eze Mckeon Active [place] deficiency, Community unspecified / Hospital E55.9(ICD-10) Repository 05/10/2018 Unknown D64.9 - Anemia, Cebul III, Active [place] unspecified / [place] [facility] D64.9(ICD-10) Hospital Repository 05/10/2018 Unknown I10 - Essential Cebul III, Active [place] (primary) [place] [facility] hypertension / Hospital I10(ICD-10) Repository 05/10/2018 Unknown E78.5 - Cebul III, Active [place] Hyperlipidemia, [place] Community unspecified / Hospital E78.5(ICD-10) Repository 04/04/2015 Resolved Personal history NA Active [facility] of malignant [place] neoplasm of breast Repository / Z85.3(ICD-10) 02/28/2018 Active Other abnormal and NA Active [facility] inconclusive [place] findings on Repository diagnostic imaging of breast / R92.8(ICD-10) 05/11/2018 Unknown R11.2 - Nausea Eze Mckeon Active [place] with vomiting, Community unspecified / Hospital R11.2(ICD-10) Repository 02/08/2018 Active Pain in left knee NA Active [facility] / M25.562(ICD-10) [place] Repository 02/02/2018 Active Encounter for NA Active [facility] screening [place] mammogram for Repository malignant neoplasm of breast / Z12.31(ICD-10) 09/04/2017 Unknown S22.39XA - Chong, Tapan Active [place] Fracture of one Community rib, unspecified Hospital side, initial Repository encounter for closed fracture / S22.39XA(ICD-10) 04/22/2016 Active Anxiety disorder, NA Active [facility] unspecified / [place] F41.9(ICD-10) Repository 04/22/2016 Active Major depressive NA Active [facility] disorder, single [place] episode, Repository unspecified / F32.9(ICD-10) 04/04/2015 Active Essential NA Active [facility] (primary) [place] hypertension / Repository I10(ICD-10) 06/19/2013 Active Vitamin D NA Active [facility] deficiency, [place] unspecified / Repository E55.9(ICD-10) 08/23/2017 Active Other amnesia / NA Active [facility] R41.3(ICD-10) [place] Repository 08/23/2017 Active Impaired fasting NA Active [facility] glucose / [place] R73.01(ICD-10) Repository 08/23/2017 Active 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 LAB L501.1000 7-18 mg/dL High BUN 23 LAB L501.1100 0.55-1.02 mg/dL Normal CREAT,SERUM 0.92 Result Comment: The validity of the calculated GFR AND GFRAA in patients over 70 years has not been determined. Clinical correlation is essential. LAB L501.1110 >60 mL/min Normal EST GFR 62 Result Comment: Non- GFR Calc LAB L501.1115 >60 mL/min Normal EST GFR - AA 75 Result Comment: GFR Calc LAB L501.1300 10-20 RATIO High BUN/CRE 25.1 LAB L501.2200 8.5-10.1 mg/dL CA Normal 9.0 LAB L501.5300 136-145 mmol/L NA Normal 144 LAB L501.5600 3.5-5.1 mmol/L K Normal 4.6 LAB L501.5900 98-107 mmol/L High CL 109 LAB L501.6100 21.0-32.0 mmol/L Normal CO2 27.0 LAB L501.6200 5-15 Normal GAP 8 Performed By: #### L500.2500 #### [facility] [address] [place], [place], [id number] CBC-COMPLETE BLOOD CNT Collected: 05/15/2018 Status: F Source: [place] NO DIFF 5:55 AM [facility] REPOSITORY Order Comment: 16 TYPE CODE TESTS RESULT OUT OF RANGE REFERENCE UNITS LAB L100.1000 4.4-11.0 K/mm3 Normal WBC 5.2 LAB L100.1200 4.2-5.4 M/mm3 Low RBC 3.53 LAB L100.1300 12.0-15.0 g/dl Low HGB 10.4 LAB L100.1400 37-47 % Low HCT 32.7 LAB L100.1500 81-99 fL Normal MCV 92.6 LAB L100.1600 27.0-32.0 pg Normal MCH 29.5 LAB L100.1700 32-36 g/gl Low MCHC 31.8 LAB L100.1810 11.6-14.6 % Normal RDW CV 13.1 LAB L100.1820 35.1-43.9 fl Normal RDW SD 43.1 LAB L100.1900 150-450 K/mm3 Normal PLT 246 LAB L100.2000 6.2-12.0 fl Normal MPV 9.5 Performed By: #### L100.0500 #### [facility] [address] [place], [address] CBC-COMPLETE BLOOD CNT Collected: 04/14/2018 Status: F Source: [place] NO DIFF 5:55 AM [facility] Order Comment: 16 TYPE CODE TESTS RESULT OUT OF RANGE REFERENCE UNITS LAB L100.1000 4.4-11.0 K/mm3 Normal WBC 4.6 LAB L100.1200 4.2-5.4 M/mm3 Low RBC 3.53 LAB L100.1300 12.0-15.0 g/dl Low HGB 10.5 LAB L100.1400 37-47 % Low HCT 32.8 LAB L100.1500 81-99 fL Normal MCV 92.9 LAB L100.1600 27.0-32.0 pg Normal MCH 29.7 LAB L100.1700 32-36 g/gl Normal MCHC 32.0 LAB L100.1810 11.6-14.6 % Normal RDW CV 12.8 LAB L100.1820 35.1-43.9 fl Normal RDW SD 41.8 LAB L100.1900 150-450 K/mm3 Normal PLT 278 LAB L100.2000 6.2-12.0 fl Normal MPV 9.3 Performed By: #### L100.0500 #### [facility] [address] [place], [address] BASIC METABOLIC Collected: 04/14/2018 Status: F Source: [place] PROFILE (BMP) 5:55 AM [facility] REPOSITORY Order Comment: 16 TYPE CODE TESTS RESULT OUT OF RANGE REFERENCE UNITS LAB L501.0100 74-106 mg/dL High GLU 130 Result Comment: Fasting Glucose result greater than or equal to 126 mg/dL suggests DIABETES MELLITUS per A.D.A. criteria. Please note revised GLUCOSE reference range effective 2017. LAB L501.1000 7-18 mg/dL High BUN 21 LAB L501.1100 0.55-1.02 mg/dL Normal CREAT,SERUM 1.00 Result Comment: The validity of the calculated GFR AND GFRAA in patients over 70 years has not been determined. Clinical correlation is essential. LAB L501.1110 >60 mL/min Low EST GFR 57 Result Comment: Non- GFR Calc LAB L501.1115 >60 mL/min Normal EST GFR - AA 69 Result Comment: GFR Calc LAB L501.1300 10-20 RATIO High BUN/CRE 21.1 LAB L501.2200 8.5-10.1 mg/dL CA Normal 8.8 LAB L501.5300 136-145 mmol/L NA Normal 142 LAB L501.5600 3.5-5.1 mmol/L K Normal 4.2 LAB L501.5900 98-107 mmol/L High CL 108 LAB L501.6100 21.0-32.0 mmol/L Normal CO2 26.0 LAB L501.6200 5-15 Normal GAP 8 Performed By: #### L500.2500 #### [facility] [address] [place], [place], [address] CBC-COMPLETE BLOOD CNT Collected: 03/15/2018 Status: F Source: [place] NO DIFF 7:00 AM [facility] REPOSITORY Order Comment: ROOM 49 TYPE CODE TESTS RESULT OUT OF RANGE REFERENCE UNITS LAB L100.1000 4.4-11.0 K/mm3 Normal WBC 5.2 LAB L100.1200 4.2-5.4 M/mm3 Low RBC 3.54 LAB L100.1300 12.0-15.0 g/dl Low HGB 10.4 LAB L100.1400 37-47 % Low HCT 33.1 LAB L100.1500 81-99 fL Normal MCV 93.5 LAB L100.1600 27.0-32.0 pg Normal MCH 29.4 LAB L100.1700 32-36 g/gl Low MCHC 31.4 LAB L100.1810 11.6-14.6 % Normal RDW CV 13.4 LAB L100.1820 35.1-43.9 fl High RDW SD 44.0 LAB L100.1900 150-450 K/mm3 Normal PLT 372 LAB L100.2000 6.2-12.0 fl Normal MPV 9.0 Performed By: #### L100.0500 #### [facility] [address] [place], [place], [id number] BASIC METABOLIC Collected: 03/15/2018 Status: F Source: [place] PROFILE (BMP) 7:00 AM [facility] REPOSITORY Order Comment: ROOM 49 TYPE CODE TESTS RESULT OUT OF RANGE REFERENCE UNITS LAB L501.0100 74-106 mg/dL Normal GLU 81 Result Comment: Please note revised GLUCOSE reference range effective 2017. LAB L501.1000 7-18 mg/dL Normal BUN 15 LAB L501.1100 0.55-1.02 mg/dL Normal CREAT,SERUM 0.98 Result Comment: The validity of the calculated GFR AND GFRAA in patients over 70 years has not been determined. Clinical correlation is essential. LAB L501.1110 >60 mL/min Low EST GFR 58 Result Comment: Non- GFR Calc LAB L501.1115 >60 mL/min Normal EST GFR - AA 70 Result Comment: GFR Calc LAB L501.1300 10-20 RATIO Normal BUN/CRE 15.3 LAB L501.2200 8.5-10.1 mg/dL CA Normal 8.7 LAB L501.5300 136-145 mmol/L NA Normal 144 LAB L501.5600 3.5-5.1 mmol/L K Normal 4.5 LAB L501.5900 98-107 mmol/L High CL 108 LAB L501.6100 21.0-32.0 mmol/L Normal CO2 29.0 LAB L501.6200 5-15 Normal GAP 7 Performed By: #### L500.2500 #### [facility] [address] [place] [address]. [place], [address] PROGRESS Observed: 02/28/2018 Status: COMPLETED Source: [place] 1:08 PM [facility] [place] REPOSITORY HNO ID: [id number] Author: Alanna Engle Service: (none) Author Type: (none) Type: Progress Notes Filed: 02/28/2018 2:01 PM Note Text: Radiology Service Progress Note PATIENT NAME: Lynn Menezes DATE OF SERVICE: February 28, 2018 TIME: 1:08 PM PATIENT IDENTITY VERIFICATION COMPLETED USING TWO (2) METHODS: Patient confirmed name verbally and Date of . PATIENT GENDER DATA: Female. status: : No status: NO. PATIENT RELEVANT IMPLANT DATA REVIEWED: Not Applicable RADIOLOGY DEPARTMENT: Women's Health right diag mammogram PERIPHERAL IV DATA: Not applicable SIGNED BY: Alanna Engle February 28, 2018 1:08 PM [facility] Observed: 02/28/2018 Status: COMPLETED Source: [place] 11:36 AM [facility] [place] REPOSITORY HNO ID: [id number] Author: Mammography Coordinator Service: (none) Author Type: Physician Type: Letter Filed: 03/01/2018 11:31 PM Note Text: February 28, 2018 PID: [id number] Lynn Menezes [address] [place] [address] Dear Michelle Clif, We are pleased to inform you that the results of your recent breast imaging exam on 02/28/2018 are normal and we recommend that you return to your annual screening Mammography schedule. Your mammogram demonstrates that you have dense breast tissue, which could hide abnormalities. Dense breast tissue, in and of itself, is a relatively common condition. Therefore, this information is not provided to cause undue concern; rather, it is to raise your awareness and promote discussion with your health care provider regarding the presence of dense breast tissue in addition to other risk factors. Early detection of cancer is very important. We also understand recommendations regarding breast cancer screening are controversial. Please discuss with your primary care provider which strategy is best for you and whether a mammogram is right for you. Your imaging studies and report will be kept on file at [facility] as part of your permanent medical record and are available for your continuing care. Thank you for allowing us to help in meeting your health care needs. Sincerely, Dr. Enriquez Interpreting Radiologist [facility] (Return to Annual Mammogram schedule) [facility] RT Observed: 02/28/2018 Status: F Source: [place] 11:31 AM [facility] [place] REPOSITORY * * *Final Report* * * DATE OF EXAM: Feb 28 2018 11:31AM [facility] 0626 - [facility] RT / PROCEDURE REASON: multiple diagnoses * * * * Physician Interpretation * * * * RESULT: #[id number] - [facility] DI[facility] RT UNILATERAL RIGHT DIGITAL DIAGNOSTIC MAMMOGRAM WITH CAD: 02/28/2018 HISTORY: Multiple Diagnoses/Abnormal Mammogram/call back right/ /priors available for comparison. RESULT: TECHNIQUE: The study was acquired using full field digital technology and interpreted from soft copy. Current study was also evaluated with a Computer Aided Detection (CAD). Comparison is made to exams dated: 02/02/2018 mammogram - [facility], 08/26/2016 mammogram - [facility], and 08/15/2015 mammogram - [facility]. The tissue of the right breast is heterogeneously dense. This may lower the sensitivity of mammography. Prior asymmetric density is no longer seen in the right breast. No significant masses, calcifications, or other findings are seen in the breast. IMPRESSION: NEGATIVE There is no mammographic evidence of malignancy. A 1 year screening mammogram is recommended. Pierre solano/krish:02/28/2018 11:36:45 Booking Supervisor: Bria PAREDES)(Kylah), [facility] letter sent: Return to Annual Mammogram BI-RADS: 1 Negative Multiple national specialty organizations have released breast cancer screening guidelines for women at average risk for developing breast cancer - guidelines that are based on both evidence and opinion, yet differ on when to start and how often to screen for breast cancer. With representation from Breast Imaging, Internal Medicine, Women's Health, Family Medicine, and Medical/Surgical Oncology, the [facility] has carefully reviewed the data and reached the following consensus: 1) All women should engage in shared decision-making with their providers to decide when to start and how often to screen; 2) All women should have the opportunity to start screening mammography at age 40; 3) For women ages 45-55, we recommend annual screening mammograms; 4) For women ages 55 and over, we support both the transition from an annual to a biennial interval if this aligns more with patient's values and preferences, or continuation with annual screening; 5) All women should discuss with their providers when to stop screening mammograms. Gear Roller: Krish Transcribe Date/Time: Feb 28 2018 11:30A Dictated by: PIERRE ENRIQUEZ DO This examination was interpreted and the report reviewed and electronically signed by: PIERRE ENRIQUEZ DO on Feb 28 2018 11:36AM EST [id number] URINALYSIS, ROUTINE Collected: 02/28/2018 Status: F Source: [place] (DIPSTICK) 9:30 AM [facility] REPOSITORY Order Comment: How was Urine Obtained? CLEAN CATCH TYPE CODE TESTS RESULT OUT OF RANGE REFERENCE UNITS LAB L400.3000 Yellow COLOR Normal Yellow LAB L400.3050 Clear Normal CLARITY Sl. Cloudy LAB L400.3200 Normal mg/dl Normal GLUCOSE, UR Normal LAB L400.3300 Negative mg/dL Normal BILIRUBIN URINE Negative LAB L400.3400 Negative mg/dl Normal KETONE UR Negative LAB L400.3465 1.002-1.030 Normal SP.GR. DIPSTX 1.015 LAB L400.3550 5.0 - 8.0 pH UR Normal 6.0 LAB L400.3600 Negative mg/dl High PROT 15 DIPSTX LAB L400.3700 Normal mg/dl High 1 UROBILI LAB L400.3750 Negative Normal NITRITE UR Negative LAB L400.3780 Negative /ul Normal OCCULT BLOOD-UR Negative LAB L400.3800 Negative /ul High LEUK ESTERASE 500 Performed By: #### L400.2010 #### [facility] [address] [place], [address] Observed: 02/28/2018 Status: F Source: [place] CULTURE, URINE 9:30 AM [facility] REPOSITORY Urine Culture ORGANISM 1: Mixed Gram Positive Organisms [place] Count 25,000-50,000 MIX CULTURE Mixed contaminants. Submit a new specimen if indicated. Performed By: #### M100.0650 #### [facility] [address] [place], [address] CNCO Observed: 02/28/2018 Status: COMPLETED Source: [place] 12:00 AM [facility] REPOSITORY Letter Text [place] Jerry Menezes, MSN FLAT BED OPERATOR.PSYCHIATRIC CLINICIAN [address] [facility]. [place], [place] [address] 02/28/2018 Lynn Menezes C[facility]# [id number] [facility] [address] Dear Ms. Menezes, The results of the mammogram that you had showed no abnormalities. Recommend annual mammogram screening. Sincerely, Jerry Menezes MSN FLAT BED OPERATOR.PSYCHIATRIC CLINICIAN CBC-COMPLETE BLOOD CNT Collected: 02/16/2018 Status: F Source: [place] NO DIFF 7:35 AM [facility] REPOSITORY TYPE CODE TESTS RESULT OUT OF RANGE REFERENCE UNITS LAB L100.1000 4.4-11.0 K/mm3 Normal WBC 5.1 LAB L100.1200 4.2-5.4 M/mm3 Low RBC 3.86 LAB L100.1300 12.0-15.0 g/dl Low HGB 11.4 LAB L100.1400 37-47 % Low HCT 35.7 LAB L100.1500 81-99 fL Normal MCV 92.5 LAB L100.1600 27.0-32.0 pg Normal MCH 29.5 LAB L100.1700 32-36 g/gl Low MCHC 31.9 LAB L100.1810 11.6-14.6 % Normal RDW CV 14.5 LAB L100.1820 35.1-43.9 fl High RDW SD 47.5 LAB L100.1900 150-450 K/mm3 Normal PLT 279 LAB L100.2000 6.2-12.0 fl Normal MPV 9.5 Performed By: #### L100.0500 #### [facility] [address] [place], [address] BASIC METABOLIC Collected: 02/16/2018 Status: F Source: [place] PROFILE (BMP) 7:35 AM [facility] REPOSITORY TYPE CODE TESTS RESULT OUT OF RANGE REFERENCE UNITS LAB L501.0100 74-106 mg/dL Normal GLU 88 Result Comment: Please note revised GLUCOSE reference range effective 2017. LAB L501.1000 7-18 mg/dL High BUN 22 LAB L501.1100 0.55-1.02 mg/dL High CREAT,SERUM 1.10 Result Comment: The validity of the calculated GFR AND GFRAA in patients over 70 years has not been determined. Clinical correlation is essential. LAB L501.1110 >60 mL/min Low EST GFR 51 Result Comment: Non- GFR Calc LAB L501.1115 >60 mL/min Normal EST GFR - AA 61 Result Comment: GFR Calc LAB L501.1300 10-20 RATIO Normal BUN/CRE 20.0 LAB L501.2200 8.5-10.1 mg/dL CA Normal 8.7 LAB L501.5300 136-145 mmol/L NA Normal 141 LAB L501.5600 3.5-5.1 mmol/L K Normal 4.7 LAB L501.5900 98-107 mmol/L High CL 108 LAB L501.6100 21.0-32.0 mmol/L Normal CO2 29.0 LAB L501.6200 5-15 Low GAP 4 Performed By: #### L500.2500 #### [facility] [address] [place], [address] CARDIOLOGY VISIT Observed: 02/10/2018 Status: F Source: [place] REPORT 6:58 AM [facility] REPOSITORY [facility] [place] [address] OFFICE VISIT Date of Service: 02/09/18 MR#: [id number] Acct: [id number] Name: LYNN MENEZES Rep #: [id number] : 1935 Provider: Jenny Denson Age/Sex: 82/F Location: [facility] Status: Signed HPI HPI Details: LYNN MENEZES, is a 82 F who presents to the office today for a cardiovascular follow-up. She has a history of coronary artery disease with bypass surgery in 2001 where she had a SVG to the LAD, SVG to the PDA of the RCA. She had a redo CABG in 2006 with SVG to the LAD. She also had an aortic valve replacement at that time with a bioprosthetic aortic valve for aortic stenosis. In 2009 she had stenting to her mid RCA and each graft to the LAD, and in 2014 she had stenting to her RCA. She also has a history of hypertension, hyperlipidemia. Pt has a fall in August of 2017, she is currently in a skilled rehab with plans on moving to an assisted living next week. Her Plavix was stopped at this time. She is having memory issues, she is accompanied by her daughter. From a cardiac standpoint, patient is doing well. She does not have any chest discomfort/heaviness/tightness. She does not have any worsening symptoms of shortness of breath. She does not have any orthopnea. She denies PND. She does not have any symptoms of congestive heart failure. She does not have any palpitations that she is aware of. She does not have any lightheadedness or dizziness. She does not have any near-syncope or syncope. She does not have any lower extremity edema. She does not have any symptoms of claudication. Intake Vital Signs02/09/18 Height 5 ft 4 in Intake Visit Reasons: 6 M FU (we r/s from 3pm) Allergies sulfamethoxazole [From Septra] Allergy (Verified 02/09/18 12:01) Unknown trimethoprim [From Decra] Allergy (Verified 02/09/18 12:01) Unknown Medications Cholecalciferol (VIT D3) [Vitamin D3] 2,000 unit PO DAILY 07/21/14 [History Confirmed 08/31/17] Letrozole [Femara] 2.5 mg PO DAILY 03/29/15 [History Confirmed 02/09/18] atorvastatin 40 mg tablet 40 mg PO DAILY 07/05/17 [History Confirmed 02/09/18] benazepril 20 mg tablet 20 mg PO DAILY 90 Days #90 07/11/17 [History Confirmed 02/09/18] Donepezil HCl [Aricept] 5 mg PO QHS 08/31/17 [History Confirmed 02/09/18] Acetaminophen [Tylenol Tablet] 650 mg PO Q6H PRN PRN tab 09/04/17 [Rx Confirmed 02/09/18] Aspirin [Aspirin, Baby] 81 mg PO DAILY@0800 #0 09/04/17 [Rx Confirmed 02/09/18] Bisacodyl [Dulcolax] 10 mg RECTAL DAILY PRN PRN suppos. 09/04/17 [Rx Confirmed 02/09/18] ferrous sulfate 325 mg (65 mg iron) tablet 325 mg PO DAILY tab 02/09/18 [History Confirmed 02/09/18] metoprolol succinate ER 25 mg capsule sprinkle, ext. 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 artery without angina pectoris (Chronic) Diabetes (Chronic) Angina pectoris (Inactive) Surgical History Aortocoronary bypass status (Resolved) Presence of coronary angioplasty implant and graft (Resolved) Hx of CABG (Resolved) Family History Father CAD (coronary artery disease) Mother Colon cancer Son Myocardial infarction Heart disease Social History Smoking Status: Never smoker alcohol intake: never substance use type: does not use ROS Const Const: Positive for weakness; negative for fatigue, night sweats, excessive sweating, frequent falls, headache(s) or daytime sleepiness Eyes Eyes: Negative for loss of peripheral vision, transient loss of vision, blind spots, double vision or blurry vision ENT ENT: Negative for headache(s), dizziness, balance problems, Nosebleed/epistaxis, tongue swelling or lip swelling Cardio Chest Pain: No Palpitations: No Edema: None Muscle aches with walking: None Resp Respiratory: Negative for SOB at rest, SOB orthopnea\SOB lying down, Cough, paroxysmal nocturnal dyspnea or SOB with activity GI GI: Negative nausea, vomiting, heartburn, black,tarry stools or bright, red blood in stools : Negative for hematuria Musc Musc: Negative for balance problems, muscle aches/ myalgia, muscle weakness or joint pain Skin Skin: Negative non-healing lesions, unusual bruising or rash Neuro Neuro: Positive for weakness and memory loss; negative for frequent falls, headache(s), double vision, dizziness, lightheadedness, orthostatic symptoms, blurry vision or lack of coordination Bo Hematologic/Lymphatic: Negative for easy bruising or easy bleeding Endo Endo: Negative for fatigue, excessive sweating, cold intolerance, heat intolerance, increased thirst/drinking or hair loss Psych Psych: Negative for anxiety or depression Allergy Allergy/Immunology: Negative for throat swelling, Negative for tongue swelling, Negative for hives, Negative for rash, Negative for lip swelling Cardiology Exam Const Appearance: cooperative, no acute distress, well developed and other (ambulates with walker) Orientation: alert, awake and other (some memory issues noted) Head Head: normocephalic and atraumatic Mouth: moist mucous membranes Eyes General: appearance normal, both eyes and all related structures Conjunctivae: conjunctivae normal Pupils: PERRL EOM: EOM intact bilaterally Neck Neck: normal visual inspection, no lymphadenopathy and no JVD Carotids: Negative bruit Neck Mass: Negative Neck mass Chest Chest inspection: normal inspection of the chest, symmetric chest movement and other (left mastectomy) Auscultation: Bilateral: Clear to Auscultation Cardio Palpation: normal PMI Rate: regular rate Rhythm: regular rhythm Heart sounds: S1 normal, S2 normal, gallop, murmur and positive S4; negative rub Murmur: Grade 2/6, soft and mid systolic GI GI: normal to inspection, soft, no hepatosplenomegaly and bowel sounds present; negative tender Neuro General: alert, awake, oriented x3, CN's II-XI intact bilaterally and moves all extremities Extremities Pulses: Normal: Right Posterior Tibial Pulse, Left Posterior Tibial Pulse, Right Radial Pulse, Left Radial Pulse Lower Extremity Edema: None: Bilateral Psych Psychological: normal affect Supplemental Info Echocardiogram in 2016 demonstrated an ejection fraction of 60%. Mild tricuspid valve insufficiency with moderate aortic stenosis when compared to previous no significant change. Heart catheterization in 2015 demonstrated bioprosthetic aortic valve stenosis, left main coronary disease mild. LAD total mid segment occlusion. Diagonal with mild disease. Ramus intermedius with mild isolated plaque. Codominant left circumflex with mild proximal disease. Codominant RCA with mild proximal disease. Old SVG to the proximal LAD diffusely diseased and small. Old SVG to the LAD also noted to be severely diseased. None of these vessels appeared to be amenable through with angioplasty. Medical management was recommended. Assessment AND Plan 1. Atherosclerosis of [place] coronary artery of [place] heart without angina pectoris I25.10 Plan - JERRICA Leos Stable, pt does not have any symptoms of angina. She will continue with current aggressive medical management. 2. Essential hypertension I10 Plan - JERRICA Leos Controlled on current medications, will not make any adjustments at this time. 3. Pure hypercholesterolemia E78.00 Plan - JERRICA Leos Laboratory Tests Cholesterol 148 LDL Cholesterol 87 VLDL Cholesterol 17 HDL Cholesterol 44 Pt will continue with current dose of moderate intensity statin. 4. Presence of prosthetic heart valve Z95.2 Plan - JERRICA Leos Stable, will continue to monitor by history, exam and echocardiograms as deemed appropriate. Dtr and pt were reminded of AHA antx guidelines. Plan Detail Additional Comments - JERRICA Leos The above patient was discussed with Dr. De La Cruz, he agrees with plan of care. Thank you for allowing us to participate in patient's plan of care, if you have any questions please do not hesitate to call. This note was generated using a voice recognition system and there may be incorrect words, spelling or punctuation errors that were not noted when reviewing the office note prior to saving. 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 transplanted heart: [place] heart Essential hypertension I10 Pure hypercholesterolemia E78.00 Hyperlipidemia type: pure hypercholesterolemia Presence of prosthetic heart valve Z95.2 02/09/18 1444 <Electronically signed by Jenny BECERRIL> Date Jenny BECERRIL 02/10/18 0658<Electronically signed by Sachin De La Cruz MD> Cosigner Signature: Date (if applicable) Sachin De La Cruz MD CC: Florence Phillips III, MD PROGRESS Observed: 02/08/2018 Status: COMPLETED Source: [place] 11:03 AM [facility] [place] REPOSITORY [facility] ID: [id number] Author: Ever Rose V Service: (none) Author Type: Physician Type: Progress Notes Filed: 02/08/2018 11:07 AM Note Text: Florence Phillips III MD [address] [facility] [address] Ms. Menezes is a 82 year old female that presents today complaining of knee problems on the left side. She claims that this pain appears to be related to osteoarthritis of knee. The pain is described as throbbing, located along the inside aspect, along the outside aspect and in the front of the knee. Patient states that her pain level is a number 9 on a scale of 1-10 ALLERGIES: Cephalexin; Codeine; Effexor [Venlafaxine Hcl]; Lasix [Furosemide]; Macrobid [Nitrofurantoin Monohyd/M-Cryst]; Nexium [Esomeprazole Magnesium]; Paper Tape [Other]; Potassium; Prevacid [Lansoprazole]; Septra [Sulfamethoxazole-Trimethoprim]; Trimethoprim; Wellbutrin [Bupropion Hcl] MEDICATIONS: Current Outpatient Prescriptions: ferrous sulfate 325 mg (65 mg iron) tablet Take 325 mg by mouth daily with breakfast. traMADol (ULTRAM) 50 mg tablet Take 50 mg by mouth every 6 hours as needed for Pain. sertraline (ZOLOFT) 50 mg tablet Take 25 mg by mouth once daily. mirtazapine (REMERON) 15 mg tablet Take 1 tablet by mouth daily at bedtime. donepezil (ARICEPT) 10 mg tablet Take 1 tablet by mouth daily at bedtime. naproxen sodium (ALEVE) 220 mg tablet Take 1 tablet by mouth twice daily as needed. TAKE WITH FOOD atorvastatin (LIPITOR) 40 mg tablet Take 1 tablet by mouth once daily. For cholesterol. letrozole (FEMARA) 2.5 mg tablet Take 1 tablet by mouth once daily. metoprolol succinate ER (TOPROL XL) 25 mg 24 hr tablet TAKE 1 TABLET BY MOUTH EVERY DAY COMPOUNDED PRESCRIPTION breast prostheses and post-surgical brasDx: L breast cancer benazepril (LOTENSIN) 20 mg tablet Take 1 tablet by mouth once daily. aspirin, enteric coated (ASPIRIN, ENTERIC COATED) 81 mg EC tablet Take 2 tablets by mouth once daily. (Patient taking differently: Take 81 mg by mouth once daily. ) Cholecalciferol, Vitamin D3, 2,000 unit cap Take 1 tablet by mouth once daily. Lancets lancets Test blood sugar(s) 1 times daily. Dx: Type 2 DM - Controlled E11.9 Insulin: No blood sugar diagnostic (TRUETRACK TEST) test strip Test blood sugar(s) 1 times daily. Dx: E11.9. Insulin: No oxyCODONE IR (ROXICODONE) 5 mg immediate release tablet EVERY 6 HOURS NEEDED PRN For Pain omeprazole (PRILOSEC) 20 mg capsule Take 1 capsule by mouth daily before breakfast. 1/2 hr before meal. (Patient not taking: Reported on 02/08/2018 ) No current facility-administered medications for this visit. MEDICAL HISTORY: PAST MEDICAL HISTORY Diagnosis Date - Anxiety and depression 04/22/2016 - At risk for falls - Atherosclerotic heart disease of [place] coronary artery without angina pectoris 2017, cardiac stents x 6 - Depressive disorder, not elsewhere classified - Essential hypertension - GERD (gastroesophageal reflux disease) 03/09/2010 - Iron deficiency anemia 07/30/2014 - Lumbar radiculopathy, chronic 05/09/2014 vertebral fx hx post fall - Malignant neoplasm of breast (female), unspecified site 1988, 1992, 1996 Left breast - Mild cognitive impairment with memory loss 09/29/2017 - Mild dementia - Mixed hyperlipidemia Hyperlipidemia - Nonrheumatic aortic (valve) stenosis 2017 - Osteoarthritis, knee - Osteoporosis 05/05/2011 - Post-traumatic osteoarthritis of left knee 11/25/2014 - Pure hypercholesterolemia - Type II or unspecified type diabetes mellitus without mention of complication, not stated as uncontrolled 06/19/2013 - Unspecified essential hypertension Essential hypertension - Unsteady gait - Vitamin D deficiency 06/19/2013 SURGICAL HISTORY: PAST SURGICAL HISTORY Procedure Laterality Date - COLONOSCOP W/ OR W/O [facility] SPEC 11/10/07 Normal - COLONOSCOP W/ OR W/O [facility] SPEC 01-01-13 - coronary artery stents 06/04 [facility] - DANDC, DIAG AND/OR THERAPEUTIC Dilation AND curettage - EGD W/O [facility] SPECIMEN W/BX 01-01-13 - L'SCOPE DX W/WO BRUSHINGS/WASHINGS Laparoscopy BTO - LAPAROSCOPIC CHOLEYCYSTECTOMY Cholecystectomy, lap - OPEN CORONARY ENDARTERECTOMY 04/27, 09/25, 09/26 Angioplasty - PAST SURGICAL HISTORY OF 07/2000 LEFT 2ND TOE - PAST SURGICAL HISTORY OF 1988 LEFT MASTECTOMY - PAST SURGICAL HISTORY OF 1992 CHEST WALL - REMV CATARACT EXTRACAP,INSERT LENS 02/04/05 Cataract Removal - REPLAC AORT VALV PROSTH VALV 05/2002 Aortic valve replacement - SLING OPER STRES INCONTINENCE 08/2001 miranda procedure - TOTAL ABDOM HYSTERECTOMY Hysterectomy, JAN FAMILY HISTORY: FAMILY HISTORY Problem Relation Age of Onset - Colon Cancer Mother - Diabetes Sister - other (LUPUS [Other]) Sister - Hypertension Sister - Breast Cancer Sister - Prostate Cancer Brother SOCIAL HISTORY: Social History Marital status: Spouse name: Years of education: Number of children: 2 Occupational History Occupation Employer Comment Retired Social History Main Topics Smoking status: Never Smoker Smokeless tobacco: Never Used Alcohol use: No Drug use: No Sexual activity: Not Currently Comment: - 10/10/04 PHYSICAL ASSESSMENT: The Pt walks with a walker assist B/l LE have Nl Alignment Right Knee Reveals No Effusion. 0-135 degrees of motion. No Abnormal Anterior, Posterior, Varus or Valgus Laxity. No Medial or Lateral Joint Line Tenderness. No pain with Direct Palpation over the Distal Medial or Lateral Femoral Condyles. Negative Cesar's Test. No pain with Patellar compression. The Left Knee Reveals No Effusion. 0-125 degrees of motion. No Abnormal Anterior, Posterior, Varus or Valgus Laxity. There is Medial and Lateral Joint Line Tenderness. No pain with Direct Palpation over the Distal Medial or Lateral Femoral Condyles. Negative Cesar's Test. There is no pain with patellar compression. RADIOGRAPH: severe degenerative changes, mainly affecting medial compartment left knee ASSESSMENT: OA left knee PLAN: PT eval and tx Risks, benefits, alternatives and personnel discussed with patient who consents to proceed. Patient wished to proceed. 6 mg celestone with 2cc, 1% lidocaine and 2cc .5% marcaine was injected. Injection was carried out under sterile conditions through a LATERAL PARAPATELLAR site into the knee joint. Patient had no immediate complications and tolerated the procedure well. Ever Rose DO PROGRESS Observed: 02/08/2018 Status: COMPLETED Source: [place] 10:48 AM [facility] REPOSITORY [facility] ID: [id number] Author: Kendra Steele RN Service: (none) Author Type: (none) Type: Progress Notes Filed: 02/08/2018 11:07 AM Note Text: AMB ROOMING INTAKE FLOWSHEET DATA Risk Screening Do you have concerns about personal safety or safety in the home?: No Pain Pain Score: 9/10 Pain Location: Knee-Left Description: Throbbing Duration Units: Unknown Frequency: Continuous Intervention: Medication Patient presents with: New Patient: left knee pain Pt. with dementia and resident at [facility], presents with [id number]. She has frequent falls and has had knee pain for years. She can have Aleve and tramadol at SNF, however, she does not remember to ask for these and does not take much. PROGRESS Observed: 02/08/2018 Status: COMPLETED Source: [place] 10:46 AM [facility] REPOSITORY [facility] ID: [id number] Author: Kendra Steele RN Service: (none) Author Type: (none) Type: Progress Notes Filed: 02/08/2018 11:07 AM Note Text: PROGRESS Observed: 02/08/2018 Status: COMPLETED Source: [place] 10:34 AM [facility] REPOSIT[facility] ID: [id number] Author: Judy PerezRtMagdaleno Maloney Service: (none) Author Type: Tobacco Prevention Health Educator Type: Progress Notes Filed: 02/08/2018 10:34 AM Note Text: Radiology Service Progress Note PATIENT NAME: Lynn Menezes DATE OF SERVICE: February 08, 2018 TIME: 10:34 AM PATIENT IDENTITY VERIFICATION COMPLETED USING TWO (2) METHODS: Patient confirmed name verbally and Date of . PATIENT GENDER DATA: Female. status: : No status: NO. PATIENT RELEVANT IMPLANT DATA REVIEWED: Not Applicable RADIOLOGY DEPARTMENT: General X-ray: Exam(s) Completed: Lower Extremity X-Ray(s): Knee, AP / Lat / Tunne / Merchant Left and Wt. Bearing: PERIPHERAL IV DATA: Not applicable SIGNED BY: RT Daniel February 08, 2018 10:34 AM XR KNEE 4V AP/PA Observed: 02/08/2018 Status: F Source: [facility]+LAT/DANYELLE LT 10:32 AM [facility] REPOSITORY * * *Final Report* * * DATE OF EXAM: Feb 08 2018 10:32AM WRX [id number] - XR KNEE 4V AP/PA BOTH+LAT/DANYELLE LT / PROCEDURE REASON: Left knee pain, unspecified chronicity * * * * Physician Interpretation * * * * LEFT KNEE TECHNIQUE: AP upright, PA upright, merchant views of both knees and lateral view of the knee of concern: 4 images HISTORY: Pain COMPARISON: none RESULT: Left: Osteopenia. Severe medial femorotibial joint space narrowing with subchondral sclerosis and osteophyte formation. Mild patellofemoral involvement with joint space narrowing and osteophyte formation.. Right: Mild medial femorotibial joint space narrowing. IMPRESSION: Left greater than right osteoarthrosis Gear Roller: PSCB Transcribe Date/Time: Feb 08 2018 12:59P Dictated by : FREEDOM CARO MD This examination was interpreted and the report reviewed and electronically signed by: FREEDOM CARO MD on Feb 08 2018 1:00PM EST [id number] CNOV Observed: 02/08/2018 Status: COMPLETED Source: [place] 10:10 AM [facility] REPOSITORY Office Visit ([facility]) LYNN MENEZES ([id number]) 1935 F Date Time Provider Department 02/08/18 10:10 AM [facility] During your visit today, we recorded the following information about you: Kendra Steele RN 02/08/2018 11:07 AM Signed Kendra Steele RN 02/08/2018 11:07 AM Signed AMB ROOMING INTAKE FLOWSHEET DATA Risk Screening Do you have concerns about personal safety or safety in the home?: No Pain Pain Score: 9/10 Pain Location: Knee-Left Description: Throbbing Duration Units: Unknown Frequency: Continuous Intervention: Medication Patient presents with: New Patient: left knee pain Pt. with dementia and resident at [facility], presents with [id number]. She has frequent falls and has had knee pain for years. She can have Aleve and tramadol at [facility], however, she does not remember to ask for these and does not take much. Ever Rose DO 02/08/2018 11:07 AM Signed Florence Phillips III MD [address] [facility] [id number] Ms. Menezes is a 82 year old female that presents today complaining of knee problems on the left side. She claims that this pain appears to be related to osteoarthritis of knee. The pain is described as throbbing, located along the inside aspect, along the outside aspect and in the front of the knee. Patient states that her pain level is a number 9 on a scale of 1-10 ALLERGIES: Cephalexin; Codeine; Effexor [Venlafaxine Hcl]; Lasix [Furosemide]; Macrobid [Nitrofurantoin Monohyd/M-Cryst]; Nexium [Esomeprazole Magnesium]; Paper Tape [Other]; Potassium; Prevacid [Lansoprazole]; Septra [Sulfamethoxazole-Trimethoprim]; Trimethoprim; Wellbutrin [Bupropion Hcl] MEDICATIONS: Current Outpatient Prescriptions: ferrous sulfate 325 mg (65 mg iron) tablet Take 325 mg by mouth daily with breakfast. traMADol (ULTRAM) 50 mg tablet Take 50 mg by mouth every 6 hours as needed for Pain. sertraline (ZOLOFT) 50 mg tablet Take 25 mg by mouth once daily. mirtazapine (REMERON) 15 mg tablet Take 1 tablet by mouth daily at bedtime. donepezil (ARICEPT) 10 mg tablet Take 1 tablet by mouth daily at bedtime. naproxen sodium (ALEVE) 220 mg tablet Take 1 tablet by mouth twice daily as needed. TAKE WITH FOOD atorvastatin (LIPITOR) 40 mg tablet Take 1 tablet by mouth once daily. For cholesterol. letrozole (FEMARA) 2.5 mg tablet Take 1 tablet by mouth once daily. metoprolol succinate ER (TOPROL XL) 25 mg 24 hr tablet TAKE 1 TABLET BY MOUTH EVERY DAY COMPOUNDED PRESCRIPTION breast prostheses and post-surgical brasDx: L breast cancer benazepril (LOTENSIN) 20 mg tablet Take 1 tablet by mouth once daily. aspirin, enteric coated (ASPIRIN, ENTERIC COATED) 81 mg EC tablet Take 2 tablets by mouth once daily. (Patient taking differently: Take 81 mg by mouth once daily. ) Cholecalciferol, Vitamin D3, 2,000 unit cap Take 1 tablet by mouth once daily. Lancets lancets Test blood sugar(s) 1 times daily. Dx: Type 2 DM - Controlled E11.9 Insulin: No blood sugar diagnostic (TRUETRACK TEST) test strip Test blood sugar(s) 1 times daily. Dx: E11.9. Insulin: No oxyCODONE IR (ROXICODONE) 5 mg immediate release tablet EVERY 6 HOURS NEEDED PRN For Pain omeprazole (PRILOSEC) 20 mg capsule Take 1 capsule by mouth daily before breakfast. 1/2 hr before meal. (Patient not taking: Reported on 02/08/2018 ) No current facility-administered medications for this visit. MEDICAL HISTORY: PAST MEDICAL HISTORY Diagnosis Date - Anxiety and depression 04/22/2016 - At risk for falls - Atherosclerotic heart disease of [place] coronary artery without angina pectoris 2018, cardiac stents x 6 - Depressive disorder, not elsewhere classified - Essential hypertension - GERD (gastroesophageal reflux disease) 03/09/2010 - Iron deficiency anemia 07/30/2014 - Lumbar radiculopathy, chronic 05/09/2014 vertebral fx hx post fall - Malignant neoplasm of breast (female), unspecified site 1988, 1992, 1996 Left breast - Mild cognitive impairment with memory loss 09/29/2017 - Mild dementia - Mixed hyperlipidemia Hyperlipidemia - Nonrheumatic aortic (valve) stenosis 2017 - Osteoarthritis, knee - Osteoporosis 05/05/2011 - Post-traumatic osteoarthritis of left knee 11/25/2014 - Pure hypercholesterolemia - Type II or unspecified type diabetes mellitus without mention of complication, not stated as uncontrolled 06/19/2013 - Unspecified essential hypertension Essential hypertension - Unsteady gait - Vitamin D deficiency 06/19/2013 SURGICAL HISTORY: PAST SURGICAL HISTORY Procedure Laterality Date - COLONOSCOP W/ OR W/O [facility] SPEC 11/10/07 Normal - COLONOSCOP W/ OR W/O [facility] SPEC 01-01-13 - coronary artery stents 06/04 [facility] - DANDC, DIAG AND/OR THERAPEUTIC Dilation AND curettage - EGD W/O [facility] SPECIMEN W/BX 01-01-13 - L'SCOPE DX W/WO BRUSHINGS/WASHINGS Laparoscopy BTO - LAPAROSCOPIC CHOLEYCYSTECTOMY Cholecystectomy, lap - OPEN CORONARY ENDARTERECTOMY 04/27, 09/25, 09/26 Angioplasty - PAST SURGICAL HISTORY OF 07/2000 LEFT 2ND TOE - PAST SURGICAL HISTORY OF 1988 LEFT MASTECTOMY - PAST SURGICAL HISTORY OF 1992 CHEST WALL - REMV CATARACT EXTRACAP,INSERT LENS 02/04/05 Cataract Removal - REPLAC AORT VALV PROSTH VALV 05/2002 Aortic valve replacement - SLING OPER STRES INCONTINENCE 08/2001 miranda procedure - TOTAL ABDOM HYSTERECTOMY Hysterectomy, JAN FAMILY HISTORY: FAMILY HISTORY Problem Relation Age of Onset - Colon Cancer Mother - Diabetes Sister - other (LUPUS [Other]) Sister - Hypertension Sister - Breast Cancer Sister - Prostate Cancer Brother SOCIAL HISTORY: Social History Marital status: Spouse name: Years of education: Number of children: 2 Occupational History Occupation Employer Comment Retired Social History Main Topics Smoking status: Never Smoker Smokeless tobacco: Never Used Alcohol use: No Drug use: No Sexual activity: Not Currently Comment: - 10/10/04 PHYSICAL ASSESSMENT: The Pt walks with a walker assist B/l LE have Nl Alignment Right Knee Reveals No Effusion. 0-135 degrees of motion. No Abnormal Anterior, Posterior, Varus or Valgus Laxity. No Medial or Lateral Joint Line Tenderness. No pain with Direct Palpation over the Distal Medial or Lateral Femoral Condyles. Negative Cesar's Test. No pain with Patellar compression. The Left Knee Reveals No Effusion. 0-125 degrees of motion. No Abnormal Anterior, Posterior, Varus or Valgus Laxity. There is Medial and Lateral Joint Line Tenderness. No pain with Direct Palpation over the Distal Medial or Lateral Femoral Condyles. Negative Cesar's Test. There is no pain with patellar compression. RADIOGRAPH: severe degenerative changes, mainly affecting medial compartment left knee ASSESSMENT: OA left knee PLAN: PT eval and tx Risks, benefits, alternatives and personnel discussed with patient who consents to proceed. Patient wished to proceed. 6 mg celestone with 2cc, 1% lidocaine and 2cc .5% marcaine was injected. Injection was carried out under sterile conditions through a LATERAL PARAPATELLAR site into the knee joint. Patient had no immediate complications and tolerated the procedure well. Ever Rose DO Referring Provider: FLORENCE PHILLIPS III [[id number]] Allergies As of Date: 02/08/2018 Noted Allergy Reaction CEPHALEXIN 01/13/2005 CODEINE 01/13/2005 8 - GI Upset EFFEXOR (VENLAFAXINE HCL) 01/13/2005 LASIX (FUROSEMIDE) 01/13/2005 MACROBID (NITROFURANTOIN MONOHYD/*01/13/2005 NEXIUM (ESOMEPRAZOLE MAGNESIUM) 01/13/2005 PAPER TAPE [Other] 01/13/2005 2 - Rash POTASSIUM 01/13/2005 PREVACID (LANSOPRAZOLE) 01/13/2005 SEPTRA (SULFAMETHOXAZOLE-TRIMETHO*01/13/2005 16 - Unknown TRIMETHOPRIM 08/30/2017 16 - Unknown WELLBUTRIN (BUPROPION HCL) 01/13/2005 Date Reviewed: 02/08/2018 Reviewed by: Kendra Steele RN - Fully Assessed Reason for Visit: New Patient [172] Cmt: left knee pain Reason For Visit History Recorded Primary Visit Diagnosis:Primary osteoarthritis of left knee [M17.12] Order(s):[] betamethasone acetate-betamethasone sodium phosphate 6 mg injection (CELESTONE)Disp: Rfl: Prescriptions as of 02/08/2018 Sig: FERROUS SULFATE 325 MG (65 MG* Take 325 mg by mouth daily wi* TRAMADOL 50 MG TABLET Take 50 mg by mouth every 6 h* SERTRALINE 50 MG TABLET Take 25 mg by mouth once keri* MIRTAZAPINE 15 MG TABLET Take 1 tablet by mouth daily * DONEPEZIL 10 MG TABLET Take 1 tablet by mouth daily * NAPROXEN SODIUM 220 MG TABLET Take 1 tablet by mouth twice * ATORVASTATIN 40 MG TABLET Take 1 tablet by mouth once d* LETROZOLE 2.5 MG TABLET Take 1 tablet by mouth once d* METOPROLOL SUCCINATE ER 25 MG* TAKE 1 TABLET BY MOUTH EVERY * COMPOUNDED PRESCRIPTION breast prostheses and post-cespedes* BENAZEPRIL 20 MG TABLET Take 1 tablet by mouth once d* ASPIRIN 81 MG TABLET,DELAYED * Take 2 tablets by mouth once * Patient taking differently: Take 81 mg by mouth once keri* CHOLECALCIFEROL (VITAMIN D3) * Take 1 tablet by mouth once d* LANCETS Test blood sugar(s) 1 times d* BLOOD SUGAR DIAGNOSTIC STRIPS Test blood sugar(s) 1 times d* OXYCODONE 5 MG TABLET EVERY 6 HOURS NEEDED PRN F* OMEPRAZOLE 20 MG CAPSULE,ANDREAS* Take 1 capsule by mouth daily* Patient not taking: Reported on 02/08/2018 Problem List As Of Date 02/08/2018 Noted Resolved Coronary atherosclerosis [I25.10] INVALID FOR* More... Malignant neoplasm of female breast (HCC) [C50.*INVALID FOR* More... More... More... 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] INVALID FOR* Arthritis of knee [M17.10] INVALID FOR* Vitamin D deficiency [E55.9] INVALID FOR* Lumbosacral spondylosis without myelopathy [M47*INVALID FOR* Lumbar radiculopathy, chronic [M54.16] INVALID FOR* Iron deficiency anemia [D50.9] INVALID FOR* Post-traumatic osteoarthritis of left knee [M17*INVALID FOR* History of breast cancer in female [Z85.3] INVALID FOR* ASHD (arteriosclerotic heart disease) [I25.10] INVALID FOR* Hyperlipidemia LDL goal <100 [E78.5] INVALID FOR* Diabetes mellitus type 2, controlled, without c*INVALID FOR*10/20/2016 Benign hypertension [I10] INVALID FOR* Personal history of breast cancer [Z85.3] INVALID FOR* Anxiety and depression [F41.9, F32.9] INVALID FOR* Angina pectoris (HCC) [I20.9] INVALID FOR* Chest pain [R07.9] INVALID FOR* Diabetes mellitus (HCC) [E11.9] INVALID FOR* Essential (primary) hypertension [I10] INVALID FOR* Atherosclerosis of autologous vein coronary art*INVALID FOR* Encounter for long-term (current) use of other *INVALID FOR* Nonrheumatic aortic valve stenosis [I35.0] INVALID FOR* 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] INVALID FOR* 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] INVALID FOR* Cardiac device in situ [Z95.9] INVALID FOR* Mild cognitive impairment with memory loss [G31*INVALID FOR* Prescriptions ordered this encounter Disp Refills Start End BETAMETHASONE ACETATE AND SODIUM NITHIN* 02/08/2018 02/08/2018 Route: OTHER Encounter Status:Closed by EVER ROSE DO, V on 02/08/18 PROGRESS Observed: 02/03/2018 Status: COMPLETED Source: [place] 3:10 PM [facility] REPOSITORY HNO ID: [id number] Author: Florence Phillips III Service: (none) Author Type: Physician Type: Progress Notes Filed: 02/03/2018 3:10 PM Note Text: There is an asymmetry in the right breast for which the radiologist recommends additional evaluation. Orders have been placed for diagnostic right mammogram and ultrasound. Florence Phillips III, MD, [facility] Observed: 02/02/2018 Status: COMPLETED Source: [place] 7:38 PM [facility] REPOSITORY HNO ID: [id number] Author: Mammography Coordinator Service: (none) Author Type: Physician Type: Letter Filed: 02/06/2018 11:32 PM Note Text: February 02, 2018 PID: [id number] Lynn Menezes [facility] [place] [address] Dear Michelle Menezes, Your recent breast imaging exam on 02/02/2018 showed a possible finding that requires additional imaging studies for a complete evaluation. Most such findings are probably benign (not cancer). Please call [phone] or [phone] to schedule an appointment for your additional imaging if you have not already done so. Your mammogram demonstrates that you have dense breast tissue, which could hide abnormalities. Dense breast tissue, in and of itself, is a relatively common condition. Therefore, this information is not provided to cause undue concern; rather, it is to raise your awareness and promote discussion with your health care provider regarding the presence of dense breast tissue in addition to other risk factors. Your breast images and report will be kept on file here as part of your permanent medical record and are available for your continuing care. Thank you for allowing us to help in meeting your health care needs. Sincerely, Dr. Real Interpreting Radiologist [facility] (Additional imaging) [facility] SCREENING Observed: 02/02/2018 Status: F Source: [place] 11:19 AM [facility] REPOSITORY * * *Final Report* * * DATE OF EXAM: Feb 02 2018 11:19AM NATY [id number] - [facility] SCREENING / PROCEDURE REASON: Encounter for screening mammogram for malignant neoplasm of breast * * * * Physician Interpretation * * * * RESULT: #[id number] - [facility] SCREENING UNILATERAL RIGHT DIGITAL SCREENING MAMMOGRAM WITH CAD: 02/02/2018 HISTORY: Encounter For Screening Mammogram For Malignant Neoplasm Of Breast\SCREENING RIGHT BREAST ONLY /priors available for comparison /patient reports NO breast symptoms. RESULT: TECHNIQUE: The study was acquired using full field digital technology and interpreted from soft copy. Current study was also evaluated with a Computer Aided Detection (CAD). Comparison is made to exams dated: 08/26/2016 mammogram - [facility] and 08/15/2015 mammogram - [facility]. The tissue of the right breast is heterogeneously dense. This may lower the sensitivity of mammography. There is possible architectural distortion in the right breast middle depth medial region seen on the craniocaudal view only. No other significant masses or calcifications are seen in the breast. IMPRESSION: INCOMPLETE: NEEDS ADDITIONAL IMAGING EVALUATION The possible architectural distortion in the right breast is indeterminate. Additional views are recommended. Christine hollis/krish:02/02/2018 19:38:36 Booking Supervisor: Alyssa Bran RT(R)(M), [facility] letter sent: Additional Imaging Needed Mammogram BI-RADS: 0 Incomplete: needs additional imaging evaluation If this report indicates you need additional imaging, and it has NOT yet been performed, please call , to schedule. We sincerely thank you for choosing the [facility] for your breast imaging needs. Multiple national specialty organizations have released breast cancer screening guidelines for women at average risk for developing breast cancer - guidelines that are based on both evidence and opinion, yet differ on when to start and how often to screen for breast cancer. With representation from Breast Imaging, Internal Medicine, Women's Health, Family Medicine, and Medical/Surgical Oncology, the [facility] has carefully reviewed the data and reached the following consensus: 1) All women should engage in shared decision-making with their providers to decide when to start and how often to screen; 2) All women should have the opportunity to start screening mammography at age 40; 3) For women ages 45-55, we recommend annual screening mammograms; 4) For women ages 55 and over, we support both the transition from an annual to a biennial interval if this aligns more with patient's values and preferences, or continuation with annual screening; 5) All women should discuss with their providers when to stop screening mammograms. Gear Roller: Krish Transcribe Date/Time: Feb 02 2018 11:21A Dictated by: CHRISTINE REAL MD This examination was interpreted and the report reviewed and electronically signed by: CHRISTINE REAL MD on Feb 02 2018 7:38PM EST [id number] CBC-COMPLETE BLOOD CNT Collected: 01/18/2018 Status: F Source: [place] NO DIFF 8:10 AM [facility] REPOSITORY Order Comment: 49 TYPE CODE TESTS RESULT OUT OF RANGE REFERENCE UNITS LAB L100.1000 4.4-11.0 K/mm3 Normal WBC 5.1 LAB L100.1200 4.2-5.4 M/mm3 Low RBC 3.62 LAB L100.1300 12.0-15.0 g/dl Low HGB 10.3 LAB L100.1400 37-47 % Low HCT 32.3 LAB L100.1500 81-99 fL Normal MCV 89.2 LAB L100.1600 27.0-32.0 pg Normal MCH 28.5 LAB L100.1700 32-36 g/gl Low MCHC 31.9 LAB L100.1810 11.6-14.6 % High RDW CV 15.2 LAB L100.1820 35.1-43.9 fl High RDW SD 49.7 LAB L100.1900 150-450 K/mm3 Normal PLT 250 LAB L100.2000 6.2-12.0 fl Normal MPV 9.1 Performed By: #### L100.0500 #### [facility] [address] [place], [address] BASIC METABOLIC Collected: 01/18/2018 Status: F Source: [place] PROFILE (BMP) 8:10 AM [facility] REPOSITORY Order Comment: 49 TYPE CODE TESTS RESULT OUT OF RANGE REFERENCE UNITS LAB L501.0100 74-106 mg/dL Normal GLU 85 Result Comment: Please note revised GLUCOSE reference range effective 2017. LAB L501.1000 7-18 mg/dL Normal BUN 15 LAB L501.1100 0.55-1.02 mg/dL Normal CREAT,SERUM 1.02 Result Comment: The validity of the calculated GFR AND GFRAA in patients over 70 years has not been determined. Clinical correlation is essential. LAB L501.1110 >60 mL/min Low EST GFR 55 Result Comment: Non- GFR Calc LAB L501.1115 >60 mL/min Normal EST GFR - AA 67 Result Comment: GFR Calc LAB L501.1300 10-20 RATIO Normal BUN/CRE 14.7 LAB L501.2200 8.5-10.1 mg/dL CA Normal 8.8 LAB L501.5300 136-145 mmol/L NA Normal 142 LAB L501.5600 3.5-5.1 mmol/L K Normal 4.7 LAB L501.5900 98-107 mmol/L CL Normal 107 LAB L501.6100 21.0-32.0 mmol/L Normal CO2 30.0 LAB L501.6200 5-15 Normal GAP 5 Performed By: #### L500.2500 #### [facility] [address] [place], [address] CBC-COMPLETE BLOOD CNT Collected: 01/06/2018 Status: F Source: [place] NO DIFF 8:05 AM [facility] REPOSITORY Order Comment: ROOM 49 TYPE CODE TESTS RESULT OUT OF RANGE REFERENCE UNITS LAB L100.1000 4.4-11.0 K/mm3 Normal WBC 5.0 LAB L100.1200 4.2-5.4 M/mm3 Low RBC 3.71 LAB L100.1300 12.0-15.0 g/dl Low HGB 10.8 LAB L100.1400 37-47 % Low HCT 33.1 LAB L100.1500 81-99 fL Normal MCV 89.2 LAB L100.1600 27.0-32.0 pg Normal MCH 29.1 LAB L100.1700 32-36 g/gl Normal MCHC 32.6 LAB L100.1810 11.6-14.6 % High RDW CV 14.9 LAB L100.1820 35.1-43.9 fl High RDW SD 48.2 LAB L100.1900 150-450 K/mm3 Normal PLT 335 LAB L100.2000 6.2-12.0 fl Normal MPV 9.7 Performed By: #### L100.0500 #### [facility] [address] [place], [place], [address] LIVER PROFILE Collected: 01/06/2018 Status: F Source: [place] 8:05 AM [facility] REPOSITORY Order Comment: ROOM 49 TYPE CODE TESTS RESULT OUT OF RANGE REFERENCE UNITS LAB L501.1500 6.4-8.2 g/dL Normal T PROT 7.2 LAB L501.1800 3.2-5.0 g/dL Normal ALB 3.3 LAB L501.1950 2.2-4.2 g/dL Normal GLOB 3.9 LAB L501.4100 15-37 U/L Normal AST 19 LAB L501.4305 45-117 U/L High ALK P 118 LAB L501.4405 13-56 U/L Normal ALT 15 LAB L501.4600 0.20-1.00 mg/dL Normal T BILI 0.50 LAB L501.4700 0.00-0.30 mg/dL Normal D BILI 0.14 Performed By: #### L500.3400, L500.4100, L503.6075, L503.6150, L503.6550 #### [facility] [address] [place], [place], [id number] LIPID PROFILE Collected: 01/06/2018 Status: F Source: [place] 8:05 AM [facility] REPOSITORY Order Comment: ROOM 49 TYPE CODE TESTS RESULT OUT OF RANGE REFERENCE UNITS LAB L501.4900 200 mg/dL Normal CHOL 148 Result Comment: <200 mg/dL Desirable 200-240 mg/dL Borderline >240 mg/dL High Risk LAB L501.5000 mg/dL Normal TRIG 85 Result Comment: The drugs N-Acetylcysteine and Metamizole may falsely depress this assay. Serum Triglycerides Reference Interval Normal <150 mg/dL Borderline high 150 - 199 mg/dL High 200 - 499 mg/dL Very High > or = 500 mg/dL LAB L501.6400 mg/dL Normal HDL 44 Result Comment: The drugs N-Acetylcysteine and Metamizole may falsely depress this assay. Reference Range HDL <40 mg/dL Low HDL Cholesterol HDL >or= 60 mg/dL High HDL Cholesterol LAB L501.6500 0-130 mg/dL Normal LDL 87 LAB L501.6600 5-40 mg/dL Normal VLDL 17 Performed By: #### L500.3400, L500.4100, L503.6075, L503.6150, L503.6550 #### [facility] [address] [place], [place], [id number] IRON BINDING Collected: 01/06/2018 Status: F Source: [facility] 8:05 AM [facility] REPOSITORY Order Comment: ROOM 49 TYPE CODE TESTS RESULT OUT OF RANGE REFERENCE UNITS LAB L503.6075 250-450 ug/dL Normal TIBC 324 Performed By: #### L500.3400, L500.4100, L503.6075, L503.6150, L503.6550 #### [facility] [address] [place], [place], [id number] IRON Collected: 01/06/2018 Status: F Source: [place] 8:05 AM [facility] REPOSITORY Order Comment: ROOM 49 TYPE CODE TESTS RESULT OUT OF RANGE REFERENCE UNITS LAB L503.6150 50-170 ug/dL Normal IRON 59 Performed By: #### L500.3400, L500.4100, L503.6075, L503.6150, L503.6550 #### [facility] [address] [place], [place], [address] FERRITIN Collected: 01/06/2018 Status: F Source: [place] 8:05 AM [facility] REPOSITORY Order Comment: ROOM 49 TYPE CODE TESTS RESULT OUT OF RANGE REFERENCE UNITS LAB L503.6550 8-252 ng/mL Normal FERRITIN 35 Performed By: #### L500.3400, L500.4100, L503.6075, L503.6150, L503.6550 #### [facility] [address] [place], [address] Observed: 12/16/2017 Status: F Source: [place] STOOL OCCULT BLOOD 12:00 AM [facility] IFOB REPOSITORY STOB iFOB Occult Blood Negative Performed By: #### M100.7900 #### [facility] [address] [place], [address] CBC-COMPLETE BLOOD CNT Collected: 12/14/2017 Status: F Source: [place] NO DIFF 6:30 AM [facility] REPOSITORY Order Comment: 49 TYPE CODE TESTS RESULT OUT OF RANGE REFERENCE UNITS LAB L100.1000 4.4-11.0 K/mm3 Normal WBC 5.5 LAB L100.1200 4.2-5.4 M/mm3 Low RBC 3.60 LAB L100.1300 12.0-15.0 g/dl Low HGB 10.1 LAB L100.1400 37-47 % Low HCT 32.1 LAB L100.1500 81-99 fL Normal MCV 89.2 LAB L100.1600 27.0-32.0 pg Normal MCH 28.1 LAB L100.1700 32-36 g/gl Low MCHC 31.5 LAB L100.1810 11.6-14.6 % High RDW CV 15.0 LAB L100.1820 35.1-43.9 fl High RDW SD 48.2 LAB L100.1900 150-450 K/mm3 Normal PLT 278 LAB L100.2000 6.2-12.0 fl Normal MPV 9.9 Performed By: #### L100.0500 #### [facility] [address] [facility] [place], [address] BASIC METABOLIC Collected: 12/14/2017 Status: F Source: [place] PROFILE (BMP) 6:30 AM [facility] REPOSITORY Order Comment: 49 TYPE CODE TESTS RESULT OUT OF RANGE REFERENCE UNITS LAB L501.0100 74-106 mg/dL Normal GLU 91 Result Comment: Please note revised GLUCOSE reference range effective 2017. LAB L501.1000 7-18 mg/dL Normal BUN 16 LAB L501.1100 0.55-1.02 mg/dL Normal CREAT,SERUM 0.82 Result Comment: The validity of the calculated GFR AND GFRAA in patients over 70 years has not been determined. Clinical correlation is essential. LAB L501.1110 >60 mL/min Normal EST GFR 71 Result Comment: Non- GFR Calc LAB L501.1115 >60 mL/min Normal EST GFR - AA 86 Result Comment: GFR Calc LAB L501.1300 10-20 RATIO Normal BUN/CRE 19.6 LAB L501.2200 8.5-10.1 mg/dL CA Normal 9.0 LAB L501.5300 136-145 mmol/L High NA 146 LAB L501.5600 3.5-5.1 mmol/L K Normal 4.3 LAB L501.5900 98-107 mmol/L High CL 110 LAB L501.6100 21.0-32.0 mmol/L Normal CO2 27.0 LAB L501.6200 5-15 Normal GAP 9 Performed By: #### L500.2500 #### [facility] [address] [place], [place], [address] BASIC METABOLIC Collected: 11/16/2017 Status: F Source: [place] PROFILE (BMP) 6:15 AM [facility] REPOSITORY Order Comment: ROOM 49 TYPE CODE TESTS RESULT OUT OF RANGE REFERENCE UNITS LAB L501.0100 74-106 mg/dL Normal GLU 81 Result Comment: Please note revised GLUCOSE reference range effective 2017. LAB L501.1000 7-18 mg/dL Normal BUN 9 LAB L501.1100 0.55-1.02 mg/dL Normal CREAT,SERUM 0.77 Result Comment: The validity of the calculated GFR AND GFRAA in patients over 70 years has not been determined. Clinical correlation is essential. LAB L501.1110 >60 mL/min Normal EST GFR 77 Result Comment: Non- GFR Calc LAB L501.1115 >60 mL/min Normal EST GFR - AA 93 Result Comment: GFR Calc LAB L501.1300 10-20 RATIO Normal BUN/CRE 11.7 LAB L501.2200 8.5-10.1 mg/dL CA Normal 9.2 LAB L501.5300 136-145 mmol/L NA Normal 145 LAB L501.5600 3.5-5.1 mmol/L K Normal 4.7 LAB L501.5900 98-107 mmol/L High CL 109 LAB L501.6100 21.0-32.0 mmol/L High CO2 33.0 LAB L501.6200 5-15 Low GAP 3 Performed By: #### L500.2500 #### [facility] [address] [place], [place], [address] CBC-COMPLETE BLOOD CNT Collected: 11/16/2017 Status: F Source: [place] NO DIFF 6:15 AM [facility] REPOSITORY Order Comment: ROOM 49 TYPE CODE TESTS RESULT OUT OF RANGE REFERENCE UNITS LAB L100.1000 4.4-11.0 K/mm3 Normal WBC 5.4 LAB L100.1200 4.2-5.4 M/mm3 Low RBC 3.77 LAB L100.1300 12.0-15.0 g/dl Low HGB 10.3 LAB L100.1400 37-47 % Low HCT 33.1 LAB L100.1500 81-99 fL Normal MCV 87.8 LAB L100.1600 27.0-32.0 pg Normal MCH 27.3 LAB L100.1700 32-36 g/gl Low MCHC 31.1 LAB L100.1810 11.6-14.6 % High RDW CV 15.0 LAB L100.1820 35.1-43.9 fl High RDW SD 48.2 LAB L100.1900 150-450 K/mm3 Normal PLT 286 LAB L100.2000 6.2-12.0 fl Normal MPV 9.6 Performed By: #### L100.0500 #### [facility] [address] [place], [place], [id number] CBC-COMPLETE BLOOD CNT Collected: 10/17/2017 Status: F Source: [place] NO DIFF 8:15 AM [facility] REPOSITORY Order Comment: ROOM 49 [place] TYPE CODE TESTS RESULT OUT OF RANGE REFERENCE UNITS LAB L100.1000 4.4-11.0 K/mm3 Normal WBC 5.6 LAB L100.1200 4.2-5.4 M/mm3 Low RBC 4.06 LAB L100.1300 12.0-15.0 g/dl Low HGB 11.1 LAB L100.1400 37-47 % Low HCT 35.7 LAB L100.1500 81-99 fL Normal MCV 87.9 LAB L100.1600 27.0-32.0 pg Normal MCH 27.3 LAB L100.1700 32-36 g/gl Low MCHC 31.1 LAB L100.1810 11.6-14.6 % High RDW CV 14.7 LAB L100.1820 35.1-43.9 fl High RDW SD 47.5 LAB L100.1900 150-450 K/mm3 Normal PLT 276 LAB L100.2000 6.2-12.0 fl Normal MPV 9.6 Performed By: #### L100.0500 #### [facility] [address] [place], [place], [address] BASIC METABOLIC Collected: 10/17/2017 Status: F Source: [place] PROFILE ([facility]) 8:15 AM [facility] REPOSITORY Order Comment: ROOM 49 [place] TYPE CODE TESTS RESULT OUT OF RANGE REFERENCE UNITS LAB L501.0100 74-106 mg/dL Normal GLU 90 Result Comment: Please note revised GLUCOSE reference range effective 2017. LAB L501.1000 7-18 mg/dL Normal BUN 10 LAB L501.1100 0.55-1.02 mg/dL Normal CREAT,SERUM 0.68 Result Comment: The validity of the calculated GFR AND GFRAA in patients over 70 years has not been determined. Clinical correlation is essential. LAB L501.1110 >60 mL/min Normal EST GFR 88 Result Comment: Non- GFR Calc LAB L501.1115 >60 mL/min Normal EST GFR - AA 106 Result Comment: GFR Calc LAB L501.1300 10-20 RATIO Normal BUN/CRE 14.6 LAB L501.2200 8.5-10.1 mg/dL CA Normal 9.1 LAB L501.5300 136-145 mmol/L NA Normal 144 LAB L501.5600 3.5-5.1 mmol/L K Normal 4.2 LAB L501.5900 98-107 mmol/L High CL 108 LAB L501.6100 21.0-32.0 mmol/L Normal CO2 29.0 LAB L501.6200 5-15 Normal GAP 7 Performed By: #### L500.2500 #### [facility] [address] [place], [place], [address] CBC-COMPLETE BLOOD CNT Collected: 09/07/2017 Status: F Source: [place] NO DIFF 5:30 AM [facility] REPOSITORY Order Comment: ROOM 405 TYPE CODE TESTS RESULT OUT OF RANGE REFERENCE UNITS LAB L100.1000 4.4-11.0 K/mm3 Normal WBC 7.5 LAB L100.1200 4.2-5.4 M/mm3 Low RBC 3.39 LAB L100.1300 12.0-15.0 g/dl Low HGB 9.2 LAB L100.1400 37-47 % Low HCT 29.3 LAB L100.1500 81-99 fL Normal MCV 86.4 LAB L100.1600 27.0-32.0 pg Normal MCH 27.1 LAB L100.1700 32-36 g/gl Low MCHC 31.4 LAB L100.1810 11.6-14.6 % High RDW CV 15.2 LAB L100.1820 35.1-43.9 fl High RDW SD 47.9 LAB L100.1900 150-450 K/mm3 Normal PLT 310 LAB L100.2000 6.2-12.0 fl Normal MPV 9.4 Performed By: #### L100.0500 #### [facility] [address] [place], [place], [address] BASIC METABOLIC Collected: 09/07/2017 Status: F Source: [place] PROFILE (BMP) 5:30 AM [facility] REPOSITORY Order Comment: ROOM 405 TYPE CODE TESTS RESULT OUT OF RANGE REFERENCE UNITS LAB L501.0100 74-106 mg/dL Normal GLU 101 Result Comment: Fasting Glucose result from 100 to 125 mg/dL suggests IMPAIRED HOMEOSTASIS per A.D.A. criteria. Please note revised GLUCOSE reference range effective 2017. LAB L501.1000 7-18 mg/dL Normal BUN 18 LAB L501.1100 0.55-1.02 mg/dL Normal CREAT,SERUM 0.71 Result Comment: The validity of the calculated GFR AND GFRAA in patients over 70 years has not been determined. Clinical correlation is essential. LAB L501.1110 >60 mL/min Normal EST GFR 84 Result Comment: Non- GFR Calc LAB L501.1115 >60 mL/min Normal EST GFR - AA 102 Result Comment: GFR Calc LAB L501.1300 10-20 RATIO High BUN/CRE 25.4 LAB L501.2200 8.5-10.1 mg/dL CA Normal 8.8 LAB L501.5300 136-145 mmol/L NA Normal 144 LAB L501.5600 3.5-5.1 mmol/L K Normal 3.9 LAB L501.5900 98-107 mmol/L High CL 109 LAB L501.6100 21.0-32.0 mmol/L Normal CO2 29.0 LAB L501.6200 5-15 Normal GAP 6 Performed By: #### L500.2500 #### [facility] [address] [place], [address] PROGRESS Observed: 09/06/2017 Status: COMPLETED Source: [place] 1:14 PM [facility] REPOSITORY HNO ID: [id number] Author: Jeninfer Davis MA Service: (none) Author Type: Staff Respiratory Therapist Type: Progress Notes Filed: 09/20/2017 5:58 PM Note Text: Called patient, got voicemail, detailed message left for patient to call back to go over TCM questions. Patient is currently scheduled with Jerry Menezes on 09/23 however needs to be seen before the for a hospital follow up. Papers from hospital are on PCP's nurses desk. Jennifer Davis CMA CNPTOUTREACH Observed: 09/06/2017 Status: COMPLETED Source: [place] 12:00 AM [facility] REPOSITORY Patient Outreach (FAMPWS) LYNN MENEZES ([id number]) 1935 F Date Time Provider Department 09/06/17 JENNIFER DAVIS) ONEL During your visit today, we recorded the following information about you: Jennifer Davis CMA, MA 09/20/2017 5:58 PM Signed Called patient, got voicemail, detailed message left for patient to call back to go over TCM questions. Patient is currently scheduled with Jerry Menezes on 09/23 however needs to be seen before the for a hospital follow up. Papers from hospital are on PCP's nurses desk. Jennifer Davis CMA Allergies As of Date: 09/06/2017 Noted Allergy Reaction CEPHALEXIN 01/13/2005 CODEINE 01/13/2005 8 - GI Upset EFFEXOR (VENLAFAXINE HCL) 01/13/2005 LASIX (FUROSEMIDE) 01/13/2005 MACROBID (NITROFURANTOIN MONOHYD/*01/13/2005 NEXIUM (ESOMEPRAZOLE MAGNESIUM) 01/13/2005 PAPER TAPE [Other] 01/13/2005 2 - Rash POTASSIUM 01/13/2005 PREVACID (LANSOPRAZOLE) 01/13/2005 SEPTRA (SULFAMETHOXAZOLE-TRIMETHO*01/13/2005 16 - Unknown TRIMETHOPRIM 08/30/2017 16 - Unknown WELLBUTRIN (BUPROPION HCL) 01/13/2005 Date Reviewed: 08/23/2017 Reviewed by: Gabriela Kelly Edge Inker - Fully Assessed Reason for Visit: Transition Of Care [4074] Cmt: discharged [facility] 09/04/2017- weakness, rib fracture, CKD Prescriptions as of 09/06/2017 Sig: OXYCODONE 5 MG TABLET EVERY 6 HOURS NEEDED PRN F* ATORVASTATIN 40 MG TABLET Take 1 tablet by mouth once d* CLOPIDOGREL 75 MG TABLET Take 1 tablet by mouth once d* LETROZOLE 2.5 MG TABLET Take 1 tablet by mouth once d* DONEPEZIL 5 MG TABLET Take 1 tablet by mouth daily * SERTRALINE 50 MG TABLET TAKE 1 TABLET BY MOUTH EVERY * METOPROLOL SUCCINATE ER 25 MG* TAKE 1 TABLET BY MOUTH EVERY * COMPOUNDED PRESCRIPTION breast prostheses and post-cespedes* BENAZEPRIL 20 MG TABLET Take 1 tablet by mouth once d* OMEPRAZOLE 20 MG CAPSULE,ANDREAS* Take 1 capsule by mouth daily* ASPIRIN 81 MG TABLET,DELAYED * Take 2 tablets by mouth once * CHOLECALCIFEROL (VITAMIN D3) * Take 1 tablet by mouth once d* LANCETS Test blood sugar(s) 1 times d* BLOOD SUGAR DIAGNOSTIC STRIPS Test blood sugar(s) 1 times d* Problem List As Of Date 09/06/2017 Noted Resolved Coronary atherosclerosis [I25.10] INVALID FOR* More... Malignant neoplasm of female breast (HCC) [C50.*INVALID FOR* More... More... More... 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] INVALID FOR* Arthritis of knee [M17.10] INVALID FOR* Vitamin D deficiency [E55.9] INVALID FOR* Lumbosacral spondylosis without myelopathy [M47*INVALID FOR* Lumbar radiculopathy, chronic [M54.16] INVALID FOR* Iron deficiency anemia [D50.9] INVALID FOR* Post-traumatic osteoarthritis of left knee [M17*INVALID FOR* History of breast cancer in female [Z85.3] INVALID FOR* ASHD (arteriosclerotic heart disease) [I25.10] INVALID FOR* Hyperlipidemia LDL goal <100 [E78.5] INVALID FOR* Diabetes mellitus type 2, controlled, without c*INVALID FOR*10/20/2016 Benign hypertension [I10] INVALID FOR* Personal history of breast cancer [Z85.3] INVALID FOR* Anxiety and depression [F41.9, F32.9] INVALID FOR* Angina pectoris (HCC) [I20.9] INVALID FOR* Chest pain [R07.9] INVALID FOR* Diabetes mellitus (HCC) [E11.9] INVALID FOR* Essential (primary) hypertension [I10] INVALID FOR* Atherosclerosis of autologous vein coronary art*INVALID FOR* Encounter for long-term (current) use of other *INVALID FOR* Nonrheumatic aortic valve stenosis [I35.0] INVALID FOR* 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] INVALID FOR* 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] INVALID FOR* Cardiac device in situ [Z95.9] INVALID FOR* Encounter Status:Closed by JENNIFER DAVIS CMA on 09/20/17 DISCHARGE SUMMARY Observed: 09/04/2017 Status: F Source: [place] 4:53 PM [facility] REPOSITORY [facility] Medical Records Department [address] [place] [address] Discharge Summary 09/04/17 1259 MR#: [id number] Acct: [id number] Name: LYNN MENEZES Rep #: [id number] : 1935 82 From: Tapan Schwarz MD PCP: Alan FROST MD,Florence Status: DIS IN Y Location: MS3 [id number] Discharge Date and Diagnosis Date of Admission: 08/31/17 Date of Discharge: 09/04/17 - Primary Discharge Diagnosis Active and Suspected Problems (Last Updated 07/11/17 @ 13:02 by Angela Umana) 1 generalized weakness and debility-secondary to age, medical problems including osteoarthritis, and recent left lateral sixth and seventh ribs fractures- # 2 recent left rib fractures-left sixth and seventh rib which occurred on 08/30/2017 after fall: 3. CKD stage III probably secondary to hypertension and coronary artery disease renal disease: Creatinine 0.73 with estimated GFR about 38 mL/min.. 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 Earlier, patient sustained a fall on 08/30/2017 and was seen in the emergency room, it was noted at that time that she had left rib fractures of the sixth and seventh ribs. She also sustained a contusion to her scalp which was not severe. Patient has left- sided lower rib pain. She had fall with multiple bruises over left forehead, left lower chest with fracture of left sixth and seventh rib, left hip region. I discussed with the patient's [id number] and she explained she has gradual worsening of cognitive deficit and has been started on Aricept about a month ago. Seen and examined today Patient had significant relief of right-sided lower chest pain and diffuse musculoskeletal pain with Aleve/naproxen. continue naproxen 250 mg twice daily for 3 days and then as needed for pain General: Alert, Oriented x3, Cooperative HEENT: Atraumatic, PERRLA, EOMI, Normocephalic Neck: Supple, No JVD, Negative Carotid Bruits Lungs: Clear to auscultation, No rhonchi, No wheeze, Diminished - Air entry diminished in bilateral lung bases Cardiovascular: Regular rate, Normal S1, Normal S2, No murmurs Abdomen: Bowel Sounds Present, Soft, Non Tender Extremities: No edema, Capillary Refill Less than 3 Seconds Skin: No rashes, No breakdown Musculoskeletal: No Tenderness to Palpation of Joints or Extremities, Tenderness - On left lower ribs Neurological: Cranial nerves II-XII grossly intact, Neuro grossly intact Psych/Mental Status: Normal Affect, Appropriate 1 generalized weakness and debility-secondary to age, medical problems including osteoarthritis, and recent left rib fractures-patient is status converted to inpatient. PT and OT. recommended SNF placement. Patient is being transferred to SNF for further PT and OT. # 2 recent left rib fractures-left sixth and seventh rib which occurred on 08/30/2017 after fall: CT chest was done on 08/30/2017 and shows compression fracture of T4 of indeterminate age. Fracture of left lateral sixth and seventh ribs. Questionable minimal infiltrate in the left lower lobe but no pneumothorax. Hyperinflation of the lungs. CT chest reviewed. Patient stated naproxen in the past has relieved her pain. 500 mg naproxen given for inflammatory rib pain. Denies history of gastric ulcer or acute kidney injury. It is on PPI 3. CKD stage III probably secondary to hypertension and coronary artery disease renal disease: Creatinine 0.73 with estimated GFR about 38 mL/min. No clinical diagnosis of COPD coronary artery disease-appears stable at this time #4 hypertension #5 hyperlipidemia #6 osteoarthritis Chronic constipation: On stool softener, Dulcolax suppository and if does not relieve soapsuds enema. Patient had bowel movement on Dulcolax suppository Discharge medication reconciliation done. Transfer extended care instructions completed. Total time spent, exact 35 minutes on discharge meds reconciliation, examination, review of imaging and blood test and discussion with the patient on follow-up instructions. Home Medications: Medications to take at Discharge Cholecalciferol (VIT D3) [Vitamin D3] 2,000 unit PO DAILY 07/21/14 Clopidogrel Bisulfate [Plavix] 75 mg PO DAILY 07/21/14 Letrozole [Femara] 2.5 mg PO DAILY 07/21/14 Metoprolol(XL)Succ [Toprol Xl (Beta Bunny)] 25 mg PO DAILY 07/21/14 Sertraline HCl [Zoloft] 50 mg PO DAILY 07/21/14 atorvastatin 40 mg tablet 40 mg PO DAILY 07/05/17 benazepril 20 mg tablet 20 mg PO DAILY 90 Days #90 07/11/17 Donepezil HCl [Aricept] 5 mg PO QHS 08/31/17 Acetaminophen [Tylenol Tablet] 650 mg PO Q6H PRN PRN tablet 09/04/17 Aspirin [Aspirin, Baby] 81 mg PO DAILY@0800 #0 09/04/17 Bisacodyl [Dulcolax] 10 mg RECTAL DAILY PRN PRN suppos. 09/04/17 Naproxen [Naprosyn] 250 mg PO BID@1000,1700 tablet 09/04/17 Omeprazole 40 mg PO DAILY #0 09/04/17 Oxycodone [Oxyir] 5 mg PO Q6H PRN PRN 4 Days #7 tab 09/04/17 Following Prescrptions Were Given to Patient: Oxycodone [Oxyir] 5 mg PO Q6H PRN PRN 4 Days #7 tab PRN Reason: Pain Primary Care Physician: Florence Phillips III, MD [Primary Care Provider] - Please follow up with your Primary Care Physician in: in 2 weeks Medical Necessity - Tobacco Use Smoking Status: Never smoker Tobacco Use: Non-smoker Meaningful Use Info Meaningful Use Diagnoses (Choose all that apply): None applicable Code Visit Inpatient E AND M: 97371 Disch Hosp 09/04/17 7839 <Electronically signed by Tapan Schwarz MD> Date Tapan Schwarz MD Cosigner Signature (if applicable): Date CC: Florence Phillips III, MD; Tapan Schwarz MD Signed TRANSFER TO EXTENDED Observed: 09/04/2017 Status: F Source: [facility] 12:59 PM [facility] REPOSITORY [facility] Medical Records Department [address] [place] [address] Transfer to Extended Care MR#: [id number] Acct: [id number] Name: LYNN MENEZES Rep #: [id number] : 1935 82 From: Tapan Schwarz MD PCP: Florence Phillips III, MD Status: ADM IN LYNN MENEZES (Patient) (Health Ins. Claim No.) (Day of Discharge to Facility) Certification of patient admission REQUIRED AT TIME OF ADMISSION. I CERTIFY THAT POST-HOSPITAL ECF SERVICES ARE REQUIRED TO BE GIVEN ON AN IN-PATIENT BASIS BECAUSE OF THE ABOVE NAMED PATIENT'S NEED FOR FPC CARE ON A CONTINUING BASIS FOR THE CONDITION(S) FOR WHICH HE/SHE WAS RECEIVING IN-PATIENT HOSPITAL SERVICES PRIOR TO HIS/HER TRANSFER TO THE ECF. 09/04/17 1259 <Electronically signed by Tapan Schwarz MD> Date Tapan Schwarz MD - Routine Orders/Code Status Suppository Type: Dulcolax 10mg Suppository Frequency: Daily PRN Routine Lab Work: CBC - on 09/07/17, BMP - on 09/07/17 - Wound(s) Left elbow Wound Type: Abrasion - Therapies Weight Bearing: Weight bearing as tolerated Physical Therapy: Eval and Treat Occupational Therapy: Eval and Treat Speech Therapy: Eval and Treat - Allergies/Procedures Done in Hospital Allergies/Adverse Reactions: Allergies sulfamethoxazole [From ] Allergy (Verified 08/30/17 17:11) Unknown trimethoprim [From ] Allergy (Verified 08/30/17 17:11) Unknown - Type of Care/Length of Stay Estimated LOS: Convalescent Care Less Than 30 days Type of Care Needed: Skilled Rehab Potential: Good Prognosis: Good - Additional Orders/Day of Discharge Day of Discharge: 09/04/17 - Follow Up Care Primary Care Physician: Florence Phillips III, MD [Primary Care Provider] - Please follow up with your Primary Care Physician in: in 2 weeks 09/04/17 1259 <Electronically signed by Tapan Schwarz MD> Date Tapan Schwarz MD CC: Florence Phillips III, MD Signed BEDSIDE GLUCOSE Collected: 09/03/2017 Status: F Source: [place] 4:22 PM [facility] REPOSITORY TYPE CODE TESTS RESULT OUT OF REFERENCE UNITS RANGE LAB L501.080 70-110 mg/dL High BEDSIDE GLU 142 Result Comment: MANAGEMENT OF PATIENT CARE PER NURSING PROTOCOL Performed By: #### L501.080 #### [facility] Laboratory Point of Care [address] [place] [address] BEDSIDE GLUCOSE Collected: 09/03/2017 Status: F Source: [place] 11:16 AM [facility] REPOSITORY TYPE CODE TESTS RESULT OUT OF REFERENCE UNITS RANGE LAB L501.080 70-110 mg/dL High BEDSIDE GLU 142 Result Comment: MANAGEMENT OF PATIENT CARE PER NURSING PROTOCOL Performed By: #### L501.080 #### [facility] Point of Care [address] [place] [address] BEDSIDE GLUCOSE Collected: 09/03/2017 Status: F Source: [place] 7:35 AM [facility] REPOSITORY TYPE CODE TESTS RESULT OUT OF REFERENCE UNITS RANGE LAB L501.080 70-110 mg/dL High BEDSIDE GLU 130 Result Comment: MANAGEMENT OF PATIENT CARE PER NURSING PROTOCOL Performed By: #### L501.080 #### [facility] Point of Care [address] [place] [address] CBC W/DIFF, AUTOMATED Collected: 09/02/2017 Status: F Source: [place] 5:30 AM [facility] REPOSITORY TYPE CODE TESTS RESULT OUT OF RANGE REFERENCE UNITS LAB L100.1000 4.4-11.0 K/mm3 Normal WBC 9.6 LAB L100.1200 4.2-5.4 M/mm3 Low RBC 3.24 LAB L100.1300 12.0-15.0 g/dl Low HGB 9.1 LAB L100.1400 37-47 % Low HCT 28.5 LAB L100.1500 81-99 fL Normal MCV 88.0 LAB L100.1600 27.0-32.0 pg Normal MCH 28.1 LAB L100.1700 32-36 g/gl Low MCHC 31.9 LAB L100.1810 11.6-14.6 % Normal RDW CV 14.6 LAB L100.1820 35.1-43.9 fl High RDW SD 45.8 LAB L100.1900 150-450 K/mm3 Normal PLT 183 LAB L100.2000 6.2-12.0 fl Normal MPV 9.7 LAB L100.2100 47-70 % High NEUT% 79.4 LAB L100.2200 19-41 % Low LY% 8.4 LAB L100.2300 0-10 % Normal MONO% 6.6 LAB L100.2400 0-5 % High EO% 5.1 LAB L100.2500 0-1 % Normal BASO% 0.3 LAB L100.2550 0.0-0.9 % Normal IM GRAN % 0.200 Result Comment: IG% - Immature Granulocytes (promyelocytes, myelocytes and metamyelocytes) > 1% indicates that a LEFT SHIFT is Present. LAB L100.2620 2.0-7.7 X10 3/uL Normal Absolute Neut 7.6 LAB L100.2720 0.83-4.51 X10 3/ul Low Absolute Lymph 0.80 Performed By: #### L100.0100 #### [facility] [address] [place] [address]. [place], [address] BASIC METABOLIC Collected: 09/02/2017 Status: F Source: [place] PROFILE (BMP) 5:30 AM [facility] REPOSITORY TYPE CODE TESTS RESULT OUT OF RANGE REFERENCE UNITS LAB L501.0100 74-106 mg/dL High GLU 138 Result Comment: Fasting Glucose result greater than or equal to 126 mg/dL suggests DIABETES MELLITUS per A.D.A. criteria. Please note revised GLUCOSE reference range effective 2017. LAB L501.1000 7-18 mg/dL Normal BUN 14 LAB L501.1100 0.55-1.02 mg/dL Normal CREAT,SERUM 0.73 Result Comment: The validity of the calculated GFR AND GFRAA in patients over 70 years has not been determined. Clinical correlation is essential. LAB L501.1110 >60 mL/min Normal EST GFR 82 Result Comment: Non- GFR Calc LAB L501.1115 >60 mL/min Normal EST GFR - AA 99 Result Comment: GFR Calc LAB L501.1255 ml/min Normal Estimated CRCL 38.10 LAB L501.1300 10-20 RATIO Normal BUN/CRE 19.3 LAB L501.2200 8.5-10 mg/dL Low .1 CA 8.3 LAB L501.5300 136-14 mmol/L Normal 5 NA 145 LAB L501.5600 3.5-5. mmol/L Normal 1 K 3.6 LAB L501.5900 98-107 mmol/L High CL 111 LAB L501.6100 21.0-3 mmol/L Normal 2.0 CO2 25.0 LAB L501.6200 5-15 Normal GAP 9 Performed By: #### L500.2500 #### [facility] [address] [place], [address] URINALYSIS, COMPLETE Collected: 09/01/2017 Status: F Source: [place] 7:55 PM [facility] REPOSITORY Order Comment: How was Urine Obtained? CLEAN CATCH TYPE CODE TESTS RESULT OUT OF RANGE REFERENCE UNITS LAB L400.3000 Yellow COLOR Normal Yellow LAB L400.3050 Clear Normal CLARITY Sl. Cloudy LAB L400.3200 Normal mg/dl Normal GLUCOSE, UR Normal LAB L400.3300 Negative mg/dL Normal BILIRUBIN URINE Negative LAB L400.3400 Negative mg/dl Normal KETONE UR Negative LAB L400.3465 1.002-1.030 Normal SP.GR. DIPSTX 1.020 LAB L400.3550 5.0 - 8.0 pH UR Normal 6.0 LAB L400.3600 Negative mg/dl High PROT 30 DIPSTX LAB L400.3700 Normal mg/dl High 1 UROBILI LAB L400.3750 Negative Normal NITRITE UR Negative LAB L400.3780 Negative /ul High 25 OCCULT BLOOD-UR LAB L400.3800 Negative /ul High LEUK 25 ESTERASE LAB L400.4050 0-5 /hpf WBC Normal 0-5 SEEN LAB L400.4100 0-5 /hpf Normal RBC-UA 0-5 SEEN LAB L400.4150 5-10 /hpf SQUAM Normal EPI 0-5 SEEN LAB L400.4300 None Seen /hpf 0 Normal BACTERIA SEEN LAB L400.4350 <or=2+ /hpf 0 Normal MUCUS, URINE SEEN Performed By: #### L400.0001 #### [facility] [address] [place], [address] Observed: 09/01/2017 Status: F Source: [place] CULTURE, URINE 7:55 PM [facility] REPOSITORY Urine Culture Below infection level. ORGANISM 1: Mixed Gram Positive Organisms [place] Count 1000-10,000 Performed By: #### M100.0650 #### [facility] [address] [place], [address] HISTORY AND PHYSICAL Observed: 08/31/2017 Status: F Source: [place] EXAM 8:08 PM [facility] REPOSITORY [facility] Medical Records Department [address] [place] [address] History and Physical 08/31/171956 MR#: [id number] Acct: [id number] Name: LYNN MENEZES Rep #: [id number] : 1935 82 From: Paul Key DO PCP: Florence Phillips III, MD Status: ADM EMANUEL Y Location: [place] [address] Problem List (1) Generalized weakness Status: Acute History of Present Illness Date of Admission: 08/31/17 Chief Complaint: weakness and debility The patient is a 82 year old F seen in the emergency room at [facility] today after being brought in by her family with complaints of generalized weakness and inability to live by herself. Patient sustained a fall yesterday and was seen in the emergency room, it was noted at that time that she had left rib fractures of the sixth and seventh ribs. She also sustained a contusion to her scalp which was not severe. Patient's wroqfmqm-[id number] states that she did not give the patient pain medications because she was afraid she would become more unsteady on pain medications. Patient complains of left rib pain today and was unable to ambulate at home without maximal assistance. Family brought her in for placement temporarily in a jail facility for further care. Labs were obtained in the emergency room, they were remarkable for an elevated white count at 14, BUN was 23, glucose is 149. Patient's family states that the patient has not been able to take in fluids today and has had some nausea throughout the day. On examination, patient looks frail, she does have tenderness over her mid lateral chest area, there is evidence of bruising over the left hip and left lateral chest wall area. 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) Angina pectoris (Chronic) Atherosclerotic heart disease of [place] coronary artery without angina pectoris (Chronic) Breast cancer (Chronic) CAD (coronary artery disease) (Chronic) Diabetes (Chronic) Chest pain (Chronic) Allergies sulfamethoxazole [From Septra] Allergy (Verified 08/30/17 17:11) Unknown trimethoprim [From Septra] Allergy (Verified 08/30/17 17:11) Unknown Home Medications: Ambulatory Orders Medication Instructions Recorded ALPRAZolam [Xanax] 0.25 mg PO DAILY 07/21/14 Aspirin [Aspirin, Baby] 162 mg PO DAILY@0800 07/21/14 Surgical History: cholecystectomy, - - Aortic valve replacement with bioprosthetic valve, coronary artery stent placements, left mastectomy Psychiatric History: No pertinent psych hx PATIENT CARE PROVIDER History: No pertinent PATIENT CARE PROVIDER history Lives: Alone Smoking Status: Never smoker Tobacco Use: Non-smoker Alcohol: None Drugs: None - *Family History Maternal History Items: - - mother and sister with breast cancer, chf Paternal History Items: - - father lived to be 101 Review of Systems Constitutional: Reports: Weakness, Fatigue. Denies: Anorexia, Chills, Fever, Night Sweats, Malaise, Weight Change Eyes: Denies: Blurred vision, Cataracts, Conjunctivae Inflammation, Double vision, Drainage HEENT: Denies: Difficulty Hearing, Difficulty Swallowing, Dysphasia, Ear Pain, Eye Pain, Head Aches, Hearing Changes, Nasal bleeding, Nasal Congestion Cardiovascular: Reports: Chest Pain - Left sided chest wall pain. Denies: Claudication, Chest Pressure, Chest Tightness, Edema, Heaviness, Orthopnea, Palpitations, Paroxysmal Noc. Dyspnea Respiratory: Denies: Cough, Hemoptysis, Pleuritic Pain, Shortness of Breath, Shortness of breath at rest, Shortness of breath upon exertion, Sputum production Gastrointestinal: Denies: Abdominal Pain, Constipation, Diarrhea, Hematemesis, Hematochezia, Nausea, Melena, Vomiting Genitourinary: Denies: Dysuria, Frequency, Hematuria, Hesitancy, Incontinence, Nocturia, Urgency Gynecological: Denies: Breast symptoms Musculoskeletal: Denies: Foot Pain, Hand Pain, Joint Pain, Joint stiffness, Joint swelling, Joint Tenderness, Leg Pain Skin: Denies: Dryness, Pruritis, Rash Neurological: Denies: Blurred vision, Double vision, Slurred speech, Difficulty swallowing, Focal weakness, Headaches, Numbness, Tingling Psychiatric: Denies: Anxiety, Depression, Homicidal Ideations, Suicidal Ideations Endocrine: Denies: Change in Body Habitus, Heat/ Cold Intolerance, Polydipsia, Polyuria Hematologic/ Lymphatic: Denies: Adenopathy, Anemia, Easy Bruising, Easy Bleeding, Petechiae, Purpura VTE Information - Inpt Only VTE Present on Admission: No VTE Mechan Device Prophylaxis: None VTE Pharm Prophylaxis ordered?: Yes Patient Problems: Active and Suspected Problems (Last Updated 07/11/17 @ 13:02 by Angela Umana) Generalized weakness (Acute) - Physical Exam General: Alert, Oriented x3, Cooperative, No apparent distress, Well developed, - - Patient appears frail HEENT: Atraumatic, PERRLA, EOMI, Normocephalic Oral: Moist Mucosa Neck: Supple, No JVD, Negative Carotid Bruits, No Nuchal Rigidity, Trachea Midline, Thyroid Normal Size and Texture Lungs: Clear to auscultation, Normal air movement, No rhonchi, No wheeze, No rales Cardiovascular: Regular rate, Regular Rhythm, Normal S1, Normal S2, Murmur - 2/6 systolic murmur is noted at the left sternal border and apex Abdomen: Bowel Sounds Present, Soft, Non Tender, Non-Distended, No hernias noted Extremities: No clubbing, No cyanosis, No edema, Capillary Refill Less than 3 Seconds Skin: No rashes, No breakdown Musculoskeletal: Tenderness - Tenderness is noted over the left lateral chest wall to palpation Neurological: Cranial nerves II-XII grossly intact, Neuro grossly intact, Sensory exam intact to light touch and pain, Coordination normal Psych/Mental Status: Normal Affect, Appropriate, Alert and oriented to time, place, person, mood and affect Vital Signs Temp Pulse Resp BP Pulse Ox 99.0 F 103 H 16 148/78 H 95 08/31/17 18:00 08/31/17 18:00 08/31/17 18:00 08/31/17 18:00 08/31/17 18:00 Oxygen Flow Rate (L/min) 1 Oxygen Delivery Method Nasal Cannula Weight: 59.33 kg Body Mass Index (BMI) 22.4 Assessment/Plan Active and Suspected Problems (Last Updated 07/11/17 @ 13:02 by Angela Umana) Generalized weakness (Acute) #1 generalized weakness and debility-secondary to age, medical problems including osteoarthritis, and recent left rib fractures-patient will be placed in observation status on [facility], she will be seen by PT and OT, plans will be made for her to go to an extended care facility for rehab #2 recent left rib fractures-left sixth and seventh rib which occurred yesterday as a result of a fall #3 coronary artery disease-appears stable at this time #4 hypertension #5 hyperlipidemia #6 osteoarthritis Code Visit OBSV E AND M: [id number] Initial observation care L3 08/31/172007 <Electronically signed by Paul Key DO> Date Paul Key DO Cosign Signature: Date (if applicable) CC: Florence Phillips III, MD; Paul Key DO Signed EMERGENCY DEPARTMENT Observed: 08/31/2017 Status: F Source: [place] 3:56 PM [facility] REPOSITORY [facility] Medical Records Department [address] [place] [address] Emergency Department Summary 08/31/17 1552 MR#: [id number] Acct: [id number] Name: LYNN MENEZES Rep #: [id number] : 1935 82 From: Rjei Parson MD PCP: Florence Phillips III, MD Status: REG ER - ER Visit Summary Date of Service: 08/31/17 Chief Complaint: Inability to care for self status post fall History of Present Illness: The patient is a 82 F who had a mechanical fall yesterday. Had a significant workup which revealed a left sixth and seventh rib fracture. Family member reluctant to give pain medicine because of nausea and vomiting and age. They report it took them 1 hour to dress prior to coming to the emergency department. He states she cannot walk without assistance. She was amatory without assistance prior to fall. Patient denies headache. She does complain of nausea vomiting dizziness. Her definition of dizziness as lightheadedness. Denies any double vision blurred vision or ocular pain. She denies ringing in her ears or decreased hearing. She denies trouble with speech or swallowing. She denies chest pain or shortness of breath. There is no hematemesis, melena hematochezia. She denies dysuria, frequency, urgency or hematuria. She states she hurts all over. She has multiple bruises noted. Physical Examination: Vital signs are normal. Patient has evidence of recent trauma with bruises noted. Head is atraumatic normocephalic. Pupils are equal round reactive. Extraocular muscles are intact. TMs are pearly white with landmarks noted. Nares patent with no drainage. Posterior pharynx without erythema or exudate. Uvula is midline. There is no dysphonia or dysphasia. Trachea is midline. There is no stridor with auscultation of the neck. Heart is regular without murmur, gallop or rub. S1 and S2 are normal. Lungs are clear to auscultation with good movement of air bilaterally. There is pain the patient left side of the chest. There is no crepitus obtains air noted. Abdomen is soft nontender. No hepatomegaly. No pain to palpation left or right costal margin. There is no CVA tenderness noted. GCS is 15. Patient is alert and oriented 3. Motor is 5/5. Sensation is intact. DTRs are symmetric without clonus or Babinski. Cranial nerves II through XII are intact. Finger to nose to finger was performed adequately. Test Results: See is marked for an elevated white count of 14,000 with 96 which represents demargination finger trauma. H AND H 7.4 and 35.1. Electro panel is pending. Emergency Department Course and Treatment: Case management was consulted regarding assistance for disposition. She recommended 23 observation since family is unable to pay for home health or private duty nursing. The hospitalist was contacted and is presently seen the patient. Treatment Plan: Pain management, physical therapy consultation and appropriate disposition after further evaluation Disposition: 23 hour observation medical surgical unit Impression: 1. Debility secondary to recent fall with fractured left sixth and seventh rib This note was generated with [employer] dictation software. It may contain incorrect words, spelling, and punctuation that were not noted in review of the chart prior to signing ED Disposition - Plan for ED Patient: Chief Complaint: Nausea/Vomiting Referrals: Florence Phillips III, MD [Primary Care Provider] - What to do if you have Problems For any increased pain, shortness of breath, bleeding, nausea or vomiting, chest pain, or any unexpected problems, contact your Primary Care Provider. Call [facility] ([phone]) or report to the closest Emergency Room. Call 911 if necessary. 08/31/17 7509 <Electronically signed by Reji Parson MD> Date Reji Parson MD Cosigner Signature (If Indicated): Date CC: Florence Phillips III, MD CBC W/DIFF, AUTOMATED Collected: 08/31/2017 Status: F Source: [place] 3:34 PM [facility] REPOSITORY TYPE CODE TESTS RESULT OUT OF RANGE REFERENCE UNITS LAB L100.1000 4.4-11.0 K/mm3 High WBC 14.0 LAB L100.1200 4.2-5.4 M/mm3 Low RBC 4.13 LAB L100.1300 12.0-15.0 g/dl Low HGB 11.4 LAB L100.1400 37-47 % Low HCT 35.1 LAB L100.1500 81-99 fL Normal MCV 85.0 LAB L100.1600 27.0-32.0 pg Normal MCH 27.6 LAB L100.1700 32-36 g/gl Normal MCHC 32.5 LAB L100.1810 11.6-14.6 % High RDW CV 14.9 LAB L100.1820 35.1-43.9 fl High RDW SD 46.2 LAB L100.1900 150-450 K/mm3 Normal PLT 189 LAB L100.2000 6.2-12.0 fl Normal MPV 9.6 LAB L100.2100 47-70 % High NEUT% 90.1 LAB L100.2200 19-41 % Low LY% 3.4 LAB L100.2300 0-10 % Normal MONO% 5.9 LAB L100.2400 0-5 % Normal EO% 0.4 LAB L100.2500 0-1 % Normal BASO% 0.1 LAB L100.2550 0.0-0.9 % Normal IM GRAN % 0.100 Result Comment: IG% - Immature Granulocytes (promyelocytes, myelocytes and metamyelocytes) > 1% indicates that a LEFT SHIFT is Present. LAB L100.2620 2.0-7.7 X10 3/uL High Absolute Neut 12.6 LAB L100.2720 0.83-4.51 X10 3/ul Low Absolute Lymph 0.47 LAB L100.4500 Normal SMEAR COMMENT SCANNED Result Comment: LYMPHOPENIA NOTED Performed By: #### L100.0100 #### [facility] [address] [place], [place], [id number] BASIC METABOLIC Collected: 08/31/2017 Status: F Source: [place] PROFILE ([facility]) 3:34 PM [facility] REPOSITORY TYPE CODE TESTS RESULT OUT OF RANGE REFERENCE UNITS LAB L501.0100 74-106 mg/dL High GLU 149 Result Comment: Fasting Glucose result greater than or equal to 126 mg/dL suggests DIABETES MELLITUS per A.D.A. criteria. Please note revised GLUCOSE reference range effective 2017. LAB L501.1000 7-18 mg/dL High BUN 23 LAB L501.1100 0.55-1.02 mg/dL Normal CREAT,SERUM 0.93 Result Comment: The validity of the calculated GFR AND GFRAA in patients over 70 years has not been determined. Clinical correlation is essential. LAB L501.1110 >60 mL/min Normal EST GFR 61 Result Comment: Non- GFR Calc LAB L501.1115 >60 mL/min Normal EST GFR - AA 74 Result Comment: GFR Calc LAB L501.1255 ml/min Normal Estimated CRCL 40.97 LAB L501.1300 10-20 RATIO High BUN/CRE 24.7 LAB L501.2200 8.5-10 mg/dL Normal .1 CA 9.6 LAB L501.5300 136-14 mmol/L Normal 5 NA 141 LAB L501.5600 3.5-5. mmol/L Normal 1 K 4.0 LAB L501.5900 98-107 mmol/L High CL 108 LAB L501.6100 21.0-3 mmol/L Normal 2.0 CO2 27.0 LAB L501.6200 5-15 Normal GAP 6 Performed By: #### L500.2500 #### [facility] [address] [facility], [address] EMERGENCY DEPARTMENT Observed: 08/31/2017 Status: F Source: [place] SUMMARY 12:08 AM [facility] REPOSITORY [facility] Medical Records Department [address] [place] [address] Emergency Department Summary 08/30/17 1723 MR#: [id number] Acct: [id number] Name: LYNN MENEZES Rep #: [id number] : 1935 82 From: Luis Colon DO PCP: Florence Phillips III, MD Status: DEP ER - ER Visit Summary Date of Service: 08/30/17 Chief Complaint: Fall History of Present Illness: The patient is a 82 F who states that she was outside. She tripped over a small lip in the concrete and fell onto her left side. She did strike her head. There was no reported loss of consciousness. Patient was ambulatory at the scene. Patient notes a hematoma to the left frontal parietal aspect of her scalp. She notes pain in the left elbow where EMS notes an abrasion. She also notes pain on the left lower anterior chest wall. She also notes some discomfort on the left knee. She states she is not on any blood thinners but our records are here at the hospital and she does not know her meds. Looking at her meds that we have on file she is on aspirin and Plavix. Physical Examination: Afebrile vital signs are stable Gen: Well-nourished well-developed Head: Normocephalic quarter size hematoma to the left frontoparietal scalp. No bony depression. Eyes: Perrl EOMI ENT: TMs clear no rhinorrhea moist mucous membranes Neck: Supple no lymphadenopathy no JVD nontender CVS: Regular rate rhythm no murmurs normal S1-S2 Respiratory: No distress clear to auscultation bilaterally patient has tenderness to palpation over the anterior lower chest wall. Abdomen: Soft nontender nondistended normal bowel sounds no masses Back: Nontender Extremity: Abrasion and mild tenderness to palpation of the left elbow. Full range and painless range of motion. There is a small hematoma and abrasion to the lateral aspect of the left knee. Skin: Normal color no rash Neuro: alert orientated 3 CN II-XII intact normal strength sensation reflexes gait cerebellar Psych: Normal affect normal mood Test Results: CT of the head and wrist were obtained. X-rays of the left elbow and left knee were obtained. CT demonstrated a 6 and seventh rib fracture. Possible pulmonary contusion. Emergency Department Course and Treatment: Wounds were cleansed and dressed. Tetanus was updated. Patient was advised the CT findings. We discussed observation in the hospital which the patient would prefer to go home I think it is reasonable as she is breathing okay. Her son is going to stay with her tonight and return if any concerns. I will write for some oxycodone for the pain. I have asked that she follow-up with her family doctor later this week to see how she is doing. She is also advised that oxycodone can cause constipation and she should take a laxative during the time that she has taken it. Impression: 1. Mechanical fall 2. Left scalp hematoma 3. Left elbow contusion/abrasion 4. Left knee hematoma and abrasion 5. Left sixth and seventh rib fracture. 6. Tetanus update This note was generated with [employer] software. It may contain incorrect words, spelling, and punctuation that were not noted in review of the chart prior to signing ED Disposition - Plan for ED Patient: Disposition: Home or Assisted Living Chief Complaint: Fall Instructions: ED Fx Rib Prescriptions: Oxycodone [Oxyir] 5 mg PO Q6H PRN PRN 4 Days #14 tab PRN Reason: Pain Referrals: Florence Phillips III, MD [Primary Care Provider] - (in 3 days) What to do if you have Problems For any increased pain, shortness of breath, bleeding, nausea or vomiting, chest pain, or any unexpected problems, contact your Primary Care Provider. Call [facility] ([phone]) or report to the closest Emergency Room. Call 911 if necessary. 08/31/17 0008 <Electronically signed by Luis Colon DO> Date Luis Colon DO Cosigner Signature (If Indicated): Date CC: Florence Phillips III, MD BRAIN/HEAD WITHOUT Observed: 08/30/2017 Status: F Source: [place] CONTRAST 5:18 PM [facility] REPOSITORY [facility] Imaging Services [address] [place] [address] Brain/Head without Contrast MR#: [id number] Acct: [id number] Name: LYNN MENEZES Rep #: [id number] : 1935 F 82 From: Josue Wilson MD PCP: Florence Phillips III, MD Status: PRE ER Study: Brain/Head without Contrast Date of Exam: 08/30/17 Exam# [id number] Ordering Dr: Luis Colon DO STUDY: CT BRAIN WITHOUT CONTRAST REASON FOR EXAM: Female, 82 years old. Fall. Head injury. Breast cancer. RADIATION DOSAGE (If Supplied By Facility): CTDIvol = ( 44.99 ) mGy, DLP = ( 745.49 ) mGycm TECHNIQUE: Transaxial CT imaging of the brain was performed without administration of intravenous contrast material. Individualized dose optimization techniques were used for this CT. COMPARISON: None. FINDINGS: Soft tissue swelling seen over the left anterior head. Normal calvarium. No skull fractures. There is mild cerebral atrophy with widening of the extra- axial spaces and ventricular dilatation. There are areas of decreased attenuation within the white matter tracts of the supratentorial brain, consistent with microvascular disease changes. There are small punctate calcifications of the basal ganglia which are seen in the aging brain as a normal variant. Normal brainstem. There is mild cerebellar atrophy. There is no intracranial hemorrhage. There are no findings of an acute ischemic infarction. Normal visualized paranasal sinuses. CT/Brain/Head without Contrast IMPRESSION: Atrophy and white matter disease. No acute intracranial abnormality. Electronically Signed: Josue Wilson MD at 17:46 EDT , Service support , CC: Luis Colon DO; Florence Phillips III, MD Gear Roller: Signed CHEST WITHOUT Observed: 08/30/2017 Status: F Source: [place] CONTRAST 5:18 PM [facility] REPOSITORY [facility] Imaging Services [address] [place] [address] Chest without Contrast MR#: [id number] Acct: [id number] Name: LYNN MENEZES Rep #: [id number] : 1935 F 82 From: Josue Wilson MD PCP: Florence Phillips III, MD Status: REG ER Study: Chest without Contrast Date of Exam: 08/30/17 Exam# [id number] Ordering Dr: Luis Colon DO STUDY: CT CHEST WITHOUT CONTRAST REASON FOR EXAM: Female, 82 years old. Trauma. Breast cancer. Mastectomy. RADIATION DOSAGE (If Supplied By Facility): CTDIvol = ( 9.59 ) mGy, DLP = ( 388.42 ) mGycm TECHNIQUE: Transaxial imaging was performed without the administration of intravenous contrast material. Individualized dose optimization techniques were used for this CT. COMPARISON: None. FINDINGS: Previous left mastectomy. There is hyperinflation of the lungs consistent with chronic obstructive lung disease (COPD). Small patchy area of pulmonary density 1.6 cm size in the left lung base may be scarring or minimal infiltrate.. No effusions. No evidence for pneumothorax. Small scattered areas of probable mild fibrosis and/or subsegmental atelectasis. No effusions. There is no demonstrated pleural abnormality. Sternal cerclage wires and vascular clips are present from a prior sternotomy and coronary artery bypass graft procedure (CABG). There are calcifications of the coronary arteries. Normal mediastinum. Normal hilar regions. Normal unenhanced pulmonary arteries. There is atherosclerotic calcification of the aortic arch with tortuosity and elongation of the aortic arch and descending thoracic aorta. Nondisplaced fracture seen of the left sixth and seventh lateral ribs. Exaggerated thoracic kyphosis primarily related to compression fracture of T4 of indeterminate age, very likely old. Diffuse demineralization. There is no demonstrated abnormality of the visualized upper abdomen. CT/Chest without Contrast IMPRESSION: Probable COPD. Question minimal area of infiltrate in the left lower lobe. No pneumothorax. Compression fracture T4 of indeterminate age. Fractures of the left lateral sixth and seventh ribs. Electronically Signed: Josue Wilson MD at 17:52 EDT , Service support , CC: Luis Colon DO; Florence Phillips III, MD Gear Roller: Signed ELBOW MIN 3 VIEWS Observed: 08/30/2017 Status: F Source: [place] 5:18 PM [facility] REPOSITORY [facility] Imaging Services [address] [place] [address] Elbow min 3 Views MR#: [id number] Acct: [id number] Name: LYNN MENEZES Rep #: [id number] : 1935 F 82 From: Josue Wilson MD PCP: Florence Phillips III, MD Status: REG ER Study: Elbow min 3 Views Date of Exam: 08/30/17 Exam# [id number] Ordering Dr: Luis Colon DO STUDY: X-RAY - LEFT ELBOW REASON FOR EXAM: Female, 82 years old. Fall. TECHNIQUE: 3 view(s) of the elbow. COMPARISON: None. FINDINGS: Normal visualized humerus, radius and ulna. Normal radiocapitellar and ulnotrochlear articulations. The soft tissue structures are unremarkable. There is no demonstrated fracture. RAD/Elbow min 3 Views IMPRESSION: Normal x-ray examination of the elbow. Electronically Signed: Josue Wilson MD at 18:05 EDT , Service support , CC: Luis Colon DO; Florence Phillips III, MD Gear Roller: Signed KNEE 4 OR MORE Observed: 08/30/2017 Status: F Source: [place] VIEWS 5:18 PM [facility] REPOSITORY [facility] Imaging Services [address] [place] [address] Knee 4 or More Views MR#: [id number] Acct: [id number] Name: LYNN MENEZES Rep #: [id number] : 1935 F 82 From: Josue Wilson MD PCP: Florence Phillips III, MD Status: REG ER Study: Knee 4 or More Views Date of Exam: 08/30/17 Exam# [id number] Ordering Dr: Luis Colon DO STUDY: X-RAY - LEFT KNEE REASON FOR EXAM: Female, 82 years old. Left knee pain. Fall. TECHNIQUE: 4 view(s) of the knee. COMPARISON: None. FINDINGS: Normal visualized distal femur. Normal visualized proximal tibia and fibula. Normal proximal tibiofibular articulation. There is no demonstrated fracture. There is moderate to severe degenerative arthrosis of the medial femorotibial compartment with moderate joint space narrowing. Normal lateral femorotibial compartment. There is moderate degenerative arthrosis of the patellofemoral articulation. There is no demonstrated joint effusion. There are vascular calcifications and vascular sutures.. RAD/Knee 4 or More Views IMPRESSION: No acute abnormality. Degenerative changes. No fracture or dislocation. Electronically Signed: Josue Wilson MD at 18:07 EDT , Service support , CC: Luis Colon DO; Florence Phillips III, MD Gear Roller: Signed URINALYSIS WITH Collected: 08/23/2017 Status: F Source: [facility] 3:02 PM [facility] REPOSITORY TYPE CODE TESTS RESULT OUT OF RANGE REFERENCE UNITS LAB UCOL Yellow Color Yellow LAB [facility] Clear Clarity Abnormal Cloudy Alert LAB UGLUC Negative mg/dL Glucose, Urine Negative LAB UBIL Negative Bilirubin, Urine Negative LAB UKET Negative Ketones, Urine Negative LAB USPG 1.005-1.030 Specific [place], Ur 1.013 LAB UHGB Negative Abnormal Hemoglobin/Blood, 1+ Alert Ur LAB UPH 4.5-8.0 pH 6.0 LAB UPROT Negative mg/dL Protein, Abnormal Urine 30 Alert LAB UUROB Normal Urobilinogen Normal LAB UNITR Negative Nitrites Negative LAB ULKEST Negative Leukest Abnormal 3+ Alert LAB UCOM Comments SEE COMMENT Result Comment: N/A LAB UMCOM Urine SEE Raffaele Comment COMMENT Result Comment: Result rechecked. LAB UWBC 0-5 /HPF WBC 0-5 LAB URBC 0-3 /HPF RBC 0-3 LAB UCAST 0 /LPF Abnormal Alert Cast SEE COMMENT Result Comment: 1-3 Hyaline Cast LAB UEPI /HPF Epithelial SEE Cells COMMENT Result Comment: Few Squamous Epithelial Cells Few Non-Squamous Epithelial Cells Performed By: #### UAWMIC #### [facility] [address] [place], [place] [address] CBC AND DIFFERENTIAL Collected: 08/23/2017 Status: F Source: [place] 3:00 PM [facility] REPOSITORY TYPE CODE TESTS RESULT OUT OF REFERENCE UNITS RANGE LAB WBC 3.70-11.00 k/uL WBC 6.39 LAB RBC 3.90-5.20 m/uL RBC 4.10 LAB HGB 11.5-15.5 g/dL Low Hemoglobin 11.3 LAB HCT 36.0-46.0 % Hematocrit 36.4 LAB MCV 80.0-100.0 fL MCV 88.8 LAB MCH 26.0-34.0 pG MCH 27.6 LAB MCHC 30.5-36.0 g/dL MCHC 31.0 LAB RDWCV 11.5-15.0 % RDW-CV 14.6 LAB PLTCT 150-400 k/uL Platelet Count 293 LAB MPV 9.0-12.7 fL MPV 10.4 LAB ANEUT % Neut% 59.9 LAB AANEUT 1.45-7.50 k/uL Abs Neut 3.81 LAB ALYMP % Lymph% 27.2 LAB AALYMP 1.00-4.00 k/uL Abs Lymph 1.74 LAB AMONO % Boundary% 8.5 LAB AAMONO <0.87 k/uL Abs Boundary 0.54 LAB AEOS % Eosin% 3.6 LAB AAEOS <0.46 k/uL Abs Eosin 0.23 LAB ABASO % Baso% 0.8 LAB AABASO <0.11 k/uL Abs Baso 0.05 LAB AUNRBC 0 /100 WBC NRBCs 0.0 LAB ABNRBC <0.01 k/uL Absolute nRBC <0.01 LAB DTYP DTYPE Auto Diff Performed By: #### CBCDIF, CMP, IRON, TSH, HBA1C, VITD #### [facility] [address] [place], [place] [address] COMP METABOLIC PANEL Collected: 08/23/2017 Status: F Source: [place] 3:00 PM [facility] REPOSITORY TYPE CODE TESTS RESULT OUT OF REFERENCE UNITS RANGE LAB TP 6.3-8.0 g/dL Protein, Total 7.8 LAB ALB 3.9-4.9 g/dL Albumin 4.4 LAB CA 8.5-10.2 mg/dL Calcium, Total 9.7 LAB TBIL 0.2-1.3 mg/dL Bilirubin, Total 0.5 LAB ALKP 32-117 U/L Alkaline Phosphatase 92 LAB AST 13-35 U/L AST 28 LAB GLU 74-99 mg/dL Glucose High 103 Result Comment: The [place] Diabetes Association (ADA) provides guidance for cutoff values for fasting glucose and random glucose. The ADA defines fasting as no caloric intake for at least 8 hours. Fas ting plasma glucose results between 100 to 125 mg/dL indicate increased risk for diabetes (prediabetes). Fasting plasma glucose results greater than or equal to 126 mg/dL meet the criteria for diagnosis of diabetes. In the absence of unequivocal hyperglycemia, results should be confirmed by repeat testing. In a patient with classic symptoms of hyperglycemia or hyperglycemic crisis, random plasma glucose results greater than or equal to 200 mg/dL meet the criteria for diagnosis of diabetes. Reference: Standards of Medical Care in Diabetes 2016, [place] [employer] Association. Diabetes Care. 2016.39(Suppl 1). LAB BUN 7-21 mg/dL BUN 21 LAB CRET 0.58-0.96 mg/dL Creatinine High 1.07 LAB NA 136-144 mmol/L Sodium 141 LAB K 3.7-5.1 mmol/L Potassium 4.1 LAB CL 97-105 mmol/L Chloride 102 LAB CO2 22-30 mmol/L CO2 27 LAB AGAP 9-18 mmol/L Anion Gap 12 LAB ALT 7-38 U/L ALT 11 LAB GFRAA eGFR- Amer. 60 LAB GFRNAA . eGFR-All Other Races 49 Result Comment: eGFR (Estimated GFR) Units of measure: mL/min/1.73 meters squared eGFR is derived from the reexpressed MDRD Study equation using the following parameters: serum creatinine, age, gender and race. The creatinine assay has been calibrated to be traceable to [facility]. An eGFR <60 mL/min/1.73m2 for >3 months is consistent with chronic kidney disease. Refer to KDOQI guidelines for clinical interpretation. In patients with unstable renal function, e.g. those with acute kidney injury, the eGFR may not accurately reflect actual GFR. Performed By: #### CBCDIF, CMP, IRON, TSH, HBA1C, VITD #### [facility] [place] [id number] IRON AND TIBC Collected: 08/23/2017 Status: F Source: [place] 3:00 [facility] REPOSITORY TYPE CODE TESTS RESULT OUT OF REFERENCE UNITS RANGE LAB IRN 41-186 ug/dL Iron 47 LAB TIBC 232-386 ug/dL TIBC High 408 LAB SAT 15-57 % Low Transferrin Saturatn 12 Performed By: #### CBCDIF, CMP, IRON, TSH, HBA1C, VITD #### [facility] [address] [place] [address] TSH Collected: 08/23/2017 Status: F Source: [place] 3:00 [facility] REPOSITORY TYPE CODE TESTS RESULT OUT OF RANGE REFERENCE UNITS LAB TSH 0.400-5.500 uU/mL TSH 1.350 Performed By: #### CBCDIF, CMP, IRON, TSH, HBA1C, VITD #### [place] [address] HEMOGLOBIN A1C Collected: 08/23/2017 Status: F Source: [place] 3:00 [facility] REPOSITORY TYPE CODE TESTS RESULT OUT OF REFERENCE UNITS RANGE LAB HGBA1C 4.3-5.6 % High Hemoglobin A1c 5.9 LAB HBA0 mg/dL Est. Average Glucose 123 Result Comment: eAG: (Estimated average glucose) is a calculated value from HgbA1c and is farm loan representative of the average blood glucose level in the last 2-3 month period. Performed By: #### CBCDIF, CMP, IRON, TSH, HBA1C, VITD #### [facility] [address] [place], [place] [id number] VITAMIN D 25 HYDROXY Collected: 08/23/2017 Status: F Source: [place] 3:00 [facility] REPOSITORY TYPE CODE TESTS RESULT OUT OF REFERENCE UNITS RANGE LAB VITD 31.0-80.0 ng/mL Vitamin D 25 39.7 Hydroxy Result Comment: Classification of 25 [place] Vitamin D status: Insufficiency/Moderate Deficiency: < or = 30 ng/mL Sufficiency/Optimal Levels: 31 to 80 ng/mL Toxicity: > 100 ng/mL Test performed by chemiluminescent immunoassay. Performed By: #### CBCDIF, CMP, IRON, TSH, HBA1C, VITD #### [facility] [address] [place], [place] [address] PROGRESS Observed: 08/23/2017 Status: COMPLETED Source: [place] 1:54 PM [facility] REPOSITORY HNO ID: [id number] Author: Jerry Duarte (Senior Game Designer) Clif Service: (none) Author Type: Nurse Practitioner Type: Progress Notes Filed: 08/23/2017 6:01 PM Note Text: Chief Complaint Patient presents with: Memory Loss: Gradual memory loss x 1 year Memory Loss: Rapid memory loss x 2 weeks HPI Lynn Menezes is a 82 year old female who presents here today for Above Complaints. Here with son and daughter in law. Notes memory concerns over the past year and worse with few incidences the past 2 weeks. She got lost and couldn't remember how to get to her mammogram apt. Turned around, went home and cancelled apt. Not yet been rescheduled. Daughter in law reports couldn't figure out the TV remote, was trying to use the telephone as if it were the TV remote. Son and daughter in law also report incident at home, stove top cooking, burner was still on and use a cover to cover the chou, melted the cover. Past medical history, appointments, medications, allergies reviewed. 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 - Coronary atherosclerosis of unspecified type of vessel, [place] or graft - Depressive disorder, not elsewhere classified - Diabetes mellitus type 2, controlled, without complications (HCC) 04/04/2015 - Diabetes mellitus type II 01/13/05 - Essential hypertension - GERD (gastroesophageal reflux disease) 03/09/2010 - Iron deficiency anemia 07/30/2014 - Lumbar radiculopathy, chronic 05/09/2014 - Malignant neoplasm of breast (female), unspecified site 1988, 1992, 1996 Left breast - Mixed hyperlipidemia Hyperlipidemia - Nonrheumatic aortic (valve) stenosis 2017 - Osteoporosis 05/05/2011 - Post-traumatic osteoarthritis of left knee 11/25/2014 - Pure hypercholesterolemia - Type II or unspecified type diabetes mellitus without mention of complication, not stated as uncontrolled 06/19/2013 - Unspecified essential hypertension Essential hypertension - Vitamin D deficiency 06/19/2013 Previous Surgical History PAST SURGICAL HISTORY Procedure Laterality Date - COLONOSCOP W/ OR W/O [facility] SPEC 11/10/07 Normal - COLONOSCOP W/ OR W/O [facility] SPEC 01-01-13 - coronary artery stents 06/04 [facility] AND/OR THERAPEUTIC Dilation AND curettage - EGD W/O [facility] SPECIMEN W/BX 01-01-13 - L'SCOPE DX W/WO BRUSHINGS/WASHINGS Laparoscopy BTO - LAPAROSCOPIC CHOLEYCYSTECTOMY Cholecystectomy, lap - OPEN CORONARY ENDARTERECTOMY 04/27, 09/25, 09/26 Angioplasty - PAST SURGICAL HISTORY OF 07/2000 LEFT 2ND TOE - PAST SURGICAL HISTORY OF 1988 LEFT MASTECTOMY - PAST SURGICAL HISTORY OF 1992 CHEST WALL - REMV CATARACT EXTRACAP,INSERT LENS 02/04/05 Cataract Removal - REPLAC AORT VALV PROSTH VALV 05/2002 Aortic valve replacement - SLING OPER STRES INCONTINENCE 08/2001 miranda procedure - TOTAL ABDOM HYSTERECTOMY Hysterectomy, JAN Family History FAMILY HISTORY Problem Relation Age of Onset - Colon Cancer Mother - Diabetes Sister - LUPUS [Other] [OTHER] Sister - Hypertension Sister - Breast Cancer Sister - Prostate Cancer Brother Patient Allergies ALLERGIES Allergen Reactions - Cephalexin - Codeine GI Upset - Effexor [Venlafaxin* - Lasix [Furosemide] - Macrobid [Nitrofura* - Nexium [Esomeprazol* - Paper Tape [Other] Rash - Potassium - Prevacid [Lansopraz* - Septra [Sulfamethox* Unknown - Wellbutrin [Bupropi* Current Medications Current Outpatient Prescriptions on File Prior to Visit: sertraline (ZOLOFT) 50 mg tablet TAKE 1 TABLET BY MOUTH EVERY DAY metoprolol succinate ER (TOPROL XL) 25 mg 24 hr tablet TAKE 1 TABLET BY MOUTH EVERY DAY COMPOUNDED PRESCRIPTION breast prostheses and post-surgical brasDx: L breast cancer benazepril (LOTENSIN) 20 mg tablet Take 1 tablet by mouth once daily. omeprazole (PRILOSEC) 20 mg capsule Take 1 capsule by mouth daily before breakfast. 1/2 hr before meal. letrozole (FEMARA) 2.5 mg tablet Take 1 tablet by mouth once daily. clopidogrel (PLAVIX) 75 mg tablet Take 1 tablet by mouth once daily. atorvastatin (LIPITOR) 40 mg tablet Take 1 tablet by mouth once daily. For cholesterol. aspirin, enteric coated (ASPIRIN, ENTERIC COATED) 81 mg EC tablet Take 2 tablets by mouth once daily. Cholecalciferol, Vitamin D3, 2,000 unit cap Take 1 tablet by mouth once daily. Lancets lancets Test blood sugar(s) 1 times daily. Dx: Type 2 DM - Controlled E11.9 Insulin: No blood sugar diagnostic (TRUETRACK TEST) test strip Test blood sugar(s) 1 times daily. Dx: E11.9. Insulin: No naproxen (NAPROSYN) 500 mg tablet Take 1 tablet by mouth twice daily as needed (for pain/inflammation). Take with food. triamcinolone (KENALOG IN ORABASE) 0.1 % paste 1 application by DENTAL route twice daily. nitroglycerin 0.1 mg/hr Apply 1 Patch as directed once daily. No current facility-administered medications on file prior to visit. Social History Social History Marital status: Spouse name: Years of education: Number of children: 2 Occupational History Occupation Employer Comment Retired Social History Main Topics Smoking status: Never Smoker Smokeless tobacco: Never Used Alcohol use: No Drug use: No Sexual activity: Not Currently Comment: - 10/10/04 Review of Symptoms REVIEW OF SYSTEMS PAIN ASSESSMENT: ongoing left knee pain. Seeing Ortho this week. GENERAL: No weight loss, malaise or fevers HEENT: Negative for frequent or significant headaches, No changes in hearing or vision, no nose bleeds or other nasal problems NECK: Negative for lumps, goiter, pain and significant neck swelling RESPIRATORY: Negative for cough, hemoptysis, wheezing, COPD, dyspnea or shortness of breath CARDIOVASCULAR: Negative for chest pain, leg swelling, hypertension, CHF or palpitations GI: No nausea, vomiting, or diarrhea and No heartburn or reflux symptoms MUSCULOSKELETAL: Knee pain PSYCH: admits to being lonely EXAM: BP 118/82 Pulse 62 Temp 37.2 ?C (99 ?F) (Tympanic) Resp 14 Wt 62 kg (136 lb 9.6 oz) BMI 23.45 kg/m? General Appearance: Well appearing, alert, in no acute distress, well-hydrated, well nourished. Kyphotic posture. Eyes: Anicteric sclera. Pupils are equally round and reactive to light. Extraocular movements are intact. . Ears: External ears normal, canals clear, Positive findings: cerumen on right, amount Moderate. Oropharynx: Dentures and Lips, mucosa, and tongue normal, teeth and gums normal, oropharynx normal. Neck: Supple, no adenopathy; thyroid symmetric, normal size, no bruits. Lungs: Lungs clear to auscultation. No wheezing, rhonchi, rales. Heart: RRR without murmur, gallop, or rubs. No ectopy, Positive findings: murmur. Abdomen: Normal abdominal exam, Abdomen soft, non-tender. Bowel sounds normal. No masses, organomegaly. Extremities: No deformities, edema, skin discoloration, clubbing or cyanosis. Good capillary refill. . Neurologic: Gait normal. Reflexes normal and symmetric. Sensation grossly intact., Negative findings: L handed., speech normal, cranial nerves 2-12 intact, Oriented X 3. MINI-MENTAL STATE EXAMINATION (MMSE) Make the patient comfortable and establish rapport. Ask questions in the order listed. Total possible score is 30. ORIENTATION 1. What is the (year) (season) (date) (day) (month)? Max score=5 Patient's score=4 2. Where are we? (state) (county) (town or city) (hospital) (floor)? Max score=5 Patient's score=5 REGISTRATION Ask the patient if you may test his/her memory. Then say the names of 3 unrelated objects, clearly and slowly, about one second for each (eg, apple, table, helena). After you have said all 3, ask him/her to repeat them. This first repetition determines the score(0-3), but keep saying them until he/she can repeat all 3, up to 6 trials. Max score=3 Patient's score=3 ATTENTION AND CALCULATION Ask the patient to begin with 100 and count backwards by 7. Stop after 5 subtractions (93, 86, 79, 72, 65). Score the total number of correct answers. If the patient cannot or will not perform the serial 7s task, ask him/her to spell the word WORLD backwards. The score is the number of letters in the correct order (eg, DLROW=5; DLRW=4; DLORW, DLW=3; OW=2; DRLWO=1). Max score=5 Patient's score=5 RECALL Ask the patient to recall the 3 items repeated above (eg, apple, table, helena). Max score=3 Patient's score=1 LANGUAGE Naming: Show the patient a wristwatch and ask him/her what it is. Repeat for pencil. Max score=2 Patient's score=2 Repetition: Ask the patient to repeat the phrase No ifs, ands, or buts: after you. Max score=1 Patient's score=1 3-Stage Command: Give the patient a piece of blank paper and ask him/her to take a piece of paper in your right hand, fold it in half, put it on the floor. Score 1 point for each part correctly executed. Max score=3 Patient's score=3 Reading: On a blank piece of paper, print the sentence CLOSE YOUR EYES in letters large enough for the patient to see clearly. Ask him/her to read it and do what it says. Score 1 point only if he/she actually closes his/her eyes. Max score=1 Patient's score=1 Writing: Give the patient a blank piece of paper and ask him/her to write a sentence. Do not dictate a sentence; it is to be written spontaneously. It must contain a subject and verb and be sensible. Correct grammar and punctuation are not necessary. Max score=1 Patient's score=1 Copying: Ask the patient to copy the figure of intersecting pentagons exactly as it is. All 10 angles must be present and 2 must intersect to form a 4-sided figure to score 1 point. Tremor and rotation are ignored. Max score=1 Patient's score=0 MAXIMUM TOTAL SCORE = 30 TOTAL SCORE = 26/30 Suggested guideline for determining the severity of cognitive impairment: Mild: MMSE>21 Moderate: MMSE 10-20 Severe: MMSE<9 Expected decline in MMSE scores in untreated mild to moderate Alzheimer's patient is 2 to 4 points per year. *Adapted from Folstein et al.1 and Yosvany and Marci2. (c) 1974, 1997 [employer] Used with permission. References: 1. Marci MENDES, Marci SE, Nasim AR. Mini- Mental State: a practical method for grading the cognitive state of patients for the clinician. J Psychiatr Res. 1975; 12:189-198. 2. Yosvany, JR, Folstein MF, Mini-Mental State Examination (MMSE). Psychopharm Bull. 1988;24:689-692. 3. Adrien JT, George FJ, Sapphire RD, Franco A, Anthony F. Neuropsychological function in Alzheimer's disease: pattern of impairment and rates of progression. Arch Neurol. 1988;45:263-268. 4. Chaya JA, Bonita B, Kvng HughesP, Kaveh TONY. Predictors of cognitive and functional progression in patients with probable Alzheimer's disease. Neurology. 1992;42:8653-1824. Health Maintenance List DTAP,TDAP,TD(1 - Tdap) due on 1955 HBA1C due on 04/19/2017 DIABETIC FOOT EXAM due on 07/14/2017 URINE ALBUMIN CREATININE RATIO due on 10/18/2017 INFLUENZA(Season Ended) due on 12/24/2017 LDL due on 07/11/2018 DILATED RETINAL EXAM due on 07/25/2018 BONE DENSITY Completed ADULT PREVNAR-13 Completed PNEUMOVAX AGE 65 AND OVER WITH 5YR LOOKBACK Completed ASSESSMENT/PLAN: 1. Memory deficit - ICD9: 780.93, ICD10: R41.3 (primary diagnosis) - Discussion with patient and family, stressing importance of routine, socialization. Priority is safety. Recommending no further driving due to safety. Patient reluctantly agrees. Family will look into resources for help in her home. - URINALYSIS WITH MICROSCOPIC - TSH BLD - CBC + DIFF - COMP METABOLIC PANEL 2. Anxiety and depression - ICD9: 300.00, 311, ICD10: F41.9, F32.9 - TSH BLD 3. Benign hypertension - ICD9: 401.1, ICD10: I10 - good control - Continue current medication(s) - Recommended regular aerobic exercise. - Recommend home blood pressure monitoring, to bring results in on next visit - Goal of BP <130/80 - URINALYSIS WITH MICROSCOPIC - TSH BLD - HGB A1C 4. Vitamin D deficiency - ICD9: 268.9, ICD10: E55.9 - VITAMIN D 25 HYDROXY 5. Iron deficiency anemia due to chronic blood loss - ICD9: 280.0, ICD10: D50.0 - IRON + TIBC 6. Impaired fasting glucose - ICD9: 790.21, ICD10: R73.01 - HGB A1C 7. Mild dementia - ICD9: 294.20, ICD10: F03.90 -Will add Aricept and follow up in one month. Explained purpose is to slow the delay of memory loss. - DONEPEZIL 5 MG TABLET At end of visit, Daughter in law wrote a note that stated she feels patient just wants more attention sot to speak Jerry Menezes MSN FLAT BED OPERATOR.PSYCHIATRIC CLINICIAN CNOV Observed: 08/23/2017 Status: COMPLETED Source: [place] 1:40 PM [facility] REPOSITORY Office Visit (FAMPWS) DARYN MENEZESLEY ([id number]) 1935 F Date Time Provider Department 08/23/17 1:40 PM JERRY MENEZES (GUIDANCE COUNSELOR) FAMPWS During your visit today, we recorded the following information about you: Temperature Pulse Respiration Blood pressure 99 degrees 62/minute 14/minute 118/82 Weight 62 kg TALI Child FLAT BED OPERATOR.PSYCHIATRIC CLINICIAN 08/23/2017 6:01 PM Signed Chief Complaint Patient presents with: Memory Loss: Gradual memory loss x 1 year Memory Loss: Rapid memory loss x 2 weeks HPI Lynn Menezes is a 82 year old female who presents here today for Above Complaints. Here with son and daughter in law. Notes memory concerns over the past year and worse with few incidences the past 2 weeks. She got lost and couldn't remember how to get to her mammogram apt. Turned around, went home and cancelled apt. Not yet been rescheduled. Daughter in law reports couldn't figure out the TV remote, was trying to use the telephone as if it were the TV remote. Son and daughter in law also report incident at home, stove top cooking, burner was still on and use a cover to cover the chou, melted the cover. Past medical history, appointments, medications, allergies reviewed. 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 - Coronary atherosclerosis of unspecified type of vessel, [place] or graft - Depressive disorder, not elsewhere classified - Diabetes mellitus type 2, controlled, without complications (HCC) 04/04/2015 - Diabetes mellitus type II 01/13/05 - Essential hypertension - GERD (gastroesophageal reflux disease) 03/09/2010 - Iron deficiency anemia 07/30/2014 - Lumbar radiculopathy, chronic 05/09/2014 - Malignant neoplasm of breast (female), unspecified site 1988, 1992, 1996 Left breast - Mixed hyperlipidemia Hyperlipidemia - Nonrheumatic aortic (valve) stenosis 2017 - Osteoporosis 05/05/2011 - Post-traumatic osteoarthritis of left knee 11/25/2014 - Pure hypercholesterolemia - Type II or unspecified type diabetes mellitus without mention of complication, not stated as uncontrolled 06/19/2013 - Unspecified essential hypertension Essential hypertension - Vitamin D deficiency 06/19/2013 Previous Surgical History PAST SURGICAL HISTORY Procedure Laterality Date - COLONOSCOP W/ OR W/O [facility] SPEC 11/10/07 Normal - COLONOSCOP W/ OR W/O [facility] SPEC 01-01-13 - coronary artery stents 06/04 [facility] - [facility], DIAG AND/OR THERAPEUTIC Dilation AND curettage - EGD W/O [facility] SPECIMEN W/BX 01-01-13 - L'SCOPE DX W/WO BRUSHINGS/WASHINGS Laparoscopy BTO - LAPAROSCOPIC CHOLEYCYSTECTOMY Cholecystectomy, lap - OPEN CORONARY ENDARTERECTOMY 04/27, 09/25, 09/26 Angioplasty - PAST SURGICAL HISTORY OF 07/2000 LEFT 2ND TOE - PAST SURGICAL HISTORY OF 1988 LEFT MASTECTOMY - PAST SURGICAL HISTORY OF 1992 CHEST WALL - REMV CATARACT EXTRACAP,INSERT LENS 02/04/05 Cataract Removal - REPLAC AORT VALV PROSTH VALV 05/2002 Aortic valve replacement - SLING OPER STRES INCONTINENCE 08/2001 miranda procedure - TOTAL ABDOM HYSTERECTOMY Hysterectomy, JAN Family History FAMILY HISTORY Problem Relation Age of Onset - Colon Cancer Mother - Diabetes Sister - LUPUS [Other] [OTHER] Sister - Hypertension Sister - Breast Cancer Sister - Prostate Cancer Brother Patient Allergies ALLERGIES Allergen Reactions - Cephalexin - Codeine GI Upset - Effexor [Venlafaxin* - Lasix [Furosemide] - Macrobid [Nitrofura* - Nexium [Esomeprazol* - Paper Tape [Other] Rash - Potassium - Prevacid [Lansopraz* - Septra [Sulfamethox* Unknown - Wellbutrin [Bupropi* Current Medications Current Outpatient Prescriptions on File Prior to Visit: sertraline (ZOLOFT) 50 mg tablet TAKE 1 TABLET BY MOUTH EVERY DAY metoprolol succinate ER (TOPROL XL) 25 mg 24 hr tablet TAKE 1 TABLET BY MOUTH EVERY DAY COMPOUNDED PRESCRIPTION breast prostheses and post-surgical brasDx: L breast cancer benazepril (LOTENSIN) 20 mg tablet Take 1 tablet by mouth once daily. omeprazole (PRILOSEC) 20 mg capsule Take 1 capsule by mouth daily before breakfast. 1/2 hr before meal. letrozole (FEMARA) 2.5 mg tablet Take 1 tablet by mouth once daily. clopidogrel (PLAVIX) 75 mg tablet Take 1 tablet by mouth once daily. atorvastatin (LIPITOR) 40 mg tablet Take 1 tablet by mouth once daily. For cholesterol. aspirin, enteric coated (ASPIRIN, ENTERIC COATED) 81 mg EC tablet Take 2 tablets by mouth once daily. Cholecalciferol, Vitamin D3, 2,000 unit cap Take 1 tablet by mouth once daily. Lancets lancets Test blood sugar(s) 1 times daily. Dx: Type 2 DM - Controlled E11.9 Insulin: No blood sugar diagnostic (TRUETRACK TEST) test strip Test blood sugar(s) 1 times daily. Dx: E11.9. Insulin: No naproxen (NAPROSYN) 500 mg tablet Take 1 tablet by mouth twice daily as needed (for pain/inflammation). Take with food. triamcinolone (KENALOG IN ORABASE) 0.1 % paste 1 application by DENTAL route twice daily. nitroglycerin 0.1 mg/hr Apply 1 Patch as directed once daily. No current facility-administered medications on file prior to visit. Social History Social History Marital status: Spouse name: Years of education: Number of children: 2 Occupational History Occupation Employer Comment Retired Social History Main Topics Smoking status: Never Smoker Smokeless tobacco: Never Used Alcohol use: No Drug use: No Sexual activity: Not Currently Comment: - 10/10/04 Review of Symptoms REVIEW OF SYSTEMS PAIN ASSESSMENT: ongoing left knee pain. Seeing Ortho this week. GENERAL: No weight loss, malaise or fevers HEENT: Negative for frequent or significant headaches, No changes in hearing or vision, no nose bleeds or other nasal problems NECK: Negative for lumps, goiter, pain and significant neck swelling RESPIRATORY: Negative for cough, hemoptysis, wheezing, COPD, dyspnea or shortness of breath CARDIOVASCULAR: Negative for chest pain, leg swelling, hypertension, CHF or palpitations GI: No nausea, vomiting, or diarrhea and No heartburn or reflux symptoms MUSCULOSKELETAL: Knee pain PSYCH: admits to being lonely EXAM: BP 118/82 Pulse 62 Temp 37.2 ?C (99 ?F) (Tympanic) Resp 14 Wt 62 kg (136 lb 9.6 oz) BMI 23.45 kg/m? General Appearance: Well appearing, alert, in no acute distress, well-hydrated, well nourished. Kyphotic posture. Eyes: Anicteric sclera. Pupils are equally round and reactive to light. Extraocular movements are intact. . Ears: External ears normal, canals clear, Positive findings: cerumen on right, amount Moderate. Oropharynx: Dentures and Lips, mucosa, and tongue normal, teeth and gums normal, oropharynx normal. Neck: Supple, no adenopathy; thyroid symmetric, normal size, no bruits. Lungs: Lungs clear to auscultation. No wheezing, rhonchi, rales. Heart: RRR without murmur, gallop, or rubs. No ectopy, Positive findings: murmur. Abdomen: Normal abdominal exam, Abdomen soft, non-tender. Bowel sounds normal. No masses, organomegaly. Extremities: No deformities, edema, skin discoloration, clubbing or cyanosis. Good capillary refill. . Neurologic: Gait normal. Reflexes normal and symmetric. Sensation grossly intact., Negative findings: L handed., speech normal, cranial nerves 2-12 intact, Oriented X 3. MINI-MENTAL STATE EXAMINATION (MMSE) Make the patient comfortable and establish rapport. Ask questions in the order listed. Total possible score is 30. ORIENTATION 1. What is the (year) (season) (date) (day) (month)? Max score=5 Patient's score=4 2. Where are we? (state) (county) (town or city) (hospital) (floor)? Max score=5 Patient's score=5 REGISTRATION Ask the patient if you may test his/her memory. Then say the names of 3 unrelated objects, clearly and slowly, about one second for each (eg, apple, table, helena). After you have said all 3, ask him/her to repeat them. This first repetition determines the score(0-3), but keep saying them until he/she can repeat all 3, up to 6 trials. Max score=3 Patient's score=3 ATTENTION AND CALCULATION Ask the patient to begin with 100 and count backwards by 7. Stop after 5 subtractions (93, 86, 79, 72, 65). Score the total number of correct answers. If the patient cannot or will not perform the serial 7s task, ask him/her to spell the word WORLD backwards. The score is the number of letters in the correct order (eg, DLROW=5; DLRW=4; DLORW, DLW=3; OW=2; DRLWO=1). Max score=5 Patient's score=5 RECALL Ask the patient to recall the 3 items repeated above (eg, apple, table, helena). Max score=3 Patient's score=1 LANGUAGE Naming: Show the patient a wristwatch and ask him/her what it is. Repeat for pencil. Max score=2 Patient's score=2 Repetition: Ask the patient to repeat the phrase No ifs, ands, or buts: after you. Max score=1 Patient's score=1 3-Stage Command: Give the patient a piece of blank paper and ask him/her to take a piece of paper in your right hand, fold it in half, put it on the floor. Score 1 point for each part correctly executed. Max score=3 Patient's score=3 Reading: On a blank piece of paper, print the sentence CLOSE YOUR EYES in letters large enough for the patient to see clearly. Ask him/her to read it and do what it says. Score 1 point only if he/she actually closes his/her eyes. Max score=1 Patient's score=1 Writing: Give the patient a blank piece of paper and ask him/her to write a sentence. Do not dictate a sentence; it is to be written spontaneously. It must contain a subject and verb and be sensible. Correct grammar and punctuation are not necessary. Max score=1 Patient's score=1 Copying: Ask the patient to copy the figure of intersecting pentagons exactly as it is. All 10 angles must be present and 2 must intersect to form a 4-sided figure to score 1 point. Tremor and rotation are ignored. Max score=1 Patient's score=0 MAXIMUM TOTAL SCORE = 30 TOTAL SCORE = 26/30 Suggested guideline for determining the severity of cognitive impairment: Mild: MMSE>21 Moderate: MMSE 10-20 Severe: MMSE<9 Expected decline in MMSE scores in untreated mild to moderate Alzheimer's patient is 2 to 4 points per year. *Adapted from Folstein et al.1 and Yosvany and Marci2. (c) 1974, 1997 [employer] Used with permission. References: 1. Folstein MF, Folstein SE, Nasim AR. Mini- Mental State: a practical method for grading the cognitive state of patients for the clinician. J Psychiatr Res. 1975; 12:189-198. 2. JR Yosvany, Marci MENDES, Mini-Mental State Examination (MMSE). Psychopharm Bull. 1988;24:689-692. 3. Adrien HickeyT, George FJ, Sapphire RD, Frnaco A, Anthony F. Neuropsychological function in Alzheimer's disease: pattern of impairment and rates of progression. Arch Neurol. 1988;45:263-268. 4. Chaya JA, Bonita B, Kvng SFinesse P, Kaveh TONY. Predictors of cognitive and functional progression in patients with probable Alzheimer's disease. Neurology. 1992;42:0369-7661. Health Maintenance List DTAP,TDAP,TD(1 - Tdap) due on 1955 HBA1C due on 04/19/2017 DIABETIC FOOT EXAM due on 07/14/2017 URINE ALBUMIN CREATININE RATIO due on 10/18/2017 INFLUENZA(Season Ended) due on 12/24/2017 LDL due on 07/11/2018 DILATED RETINAL EXAM due on 07/25/2018 BONE DENSITY Completed ADULT PREVNAR-13 Completed PNEUMOVAX AGE 65 AND OVER WITH 5YR LOOKBACK Completed ASSESSMENT/PLAN: 1. Memory deficit - ICD9: 780.93, ICD10: R41.3 (primary diagnosis) - Discussion with patient and family, stressing importance of routine, socialization. Priority is safety. Recommending no further driving due to safety. Patient reluctantly agrees. Family will look into resources for help in her home. - URINALYSIS WITH MICROSCOPIC - TSH BLD - CBC + DIFF - COMP METABOLIC PANEL 2. Anxiety and depression - ICD9: 300.00, 311, ICD10: F41.9, F32.9 - TSH BLD 3. Benign hypertension - ICD9: 401.1, ICD10: I10 - good control - Continue current medication(s) - Recommended regular aerobic exercise. - Recommend home blood pressure monitoring, to bring results in on next visit - Goal of BP <130/80 - URINALYSIS WITH MICROSCOPIC - TSH BLD - HGB A1C 4. Vitamin D deficiency - ICD9: 268.9, ICD10: E55.9 - VITAMIN D 25 HYDROXY 5. Iron deficiency anemia due to chronic blood loss - ICD9: 280.0, ICD10: D50.0 - IRON + TIBC 6. Impaired fasting glucose - ICD9: 790.21, ICD10: R73.01 - HGB A1C 7. Mild dementia - ICD9: 294.20, ICD10: F03.90 -Will add Aricept and follow up in one month. Explained purpose is to slow the delay of memory loss. - DONEPEZIL 5 MG TABLET At end of visit, Daughter in law wrote a note that stated she feels patient just wants more attention sot to speak Jerry Menezes, MSN FLAT BED OPERATOR.PSYCHIATRIC CLINICIAN Referring Provider: SELF [200] Allergies As of Date: 08/23/2017 Noted Allergy Reaction CEPHALEXIN 01/13/2005 CODEINE 01/13/2005 8 - GI Upset EFFEXOR (VENLAFAXINE HCL) 01/13/2005 LASIX (FUROSEMIDE) 01/13/2005 MACROBID (NITROFURANTOIN MONOHYD/*01/13/2005 NEXIUM (ESOMEPRAZOLE MAGNESIUM) 01/13/2005 PAPER TAPE [Other] 01/13/2005 2 - Rash POTASSIUM 01/13/2005 PREVACID (LANSOPRAZOLE) 01/13/2005 SEPTRA (SULFAMETHOXAZOLE-TRIMETHO*01/13/2005 16 - Unknown WELLBUTRIN (BUPROPION HCL) 01/13/2005 Date Reviewed: 08/23/2017 Reviewed by: Gabriela Kelly Edge Inker - Fully Assessed Reason for Visit: Memory Loss [66] Cmt: Gradual memory loss x 1 year Memory Loss [66] Cmt: Rapid memory loss x 2 weeks Primary Visit Diagnosis:Memory deficit [R41.3] Other Visit Diagnoses:Anxiety and depression [F41.9, F32.9] Benign hypertension [I10] Vitamin D deficiency [E55.9] Iron deficiency anemia due to chronic blood loss [D50.0] Impaired fasting glucose [R73.01] Mild dementia [F03.90] Order(s):URINALYSIS WITH MICROSCOPIC [SQUAWMIC] Order #: [id number]. #:[id number] TSH BLD [SQTSH] Order #: [id number] FUTURE CBC + DIFF [SQCBCDIF] Order #: [id number] FUTURE COMP METABOLIC PANEL [SQCMP] Order #: [id number] FUTURE HGB A1C [CIESE2H] Order #: [id number] FUTURE VITAMIN D 25 HYDROXY [SQVITD] Order #: [id number] FUTURE IRON + TIBC [SQIRON] Order #: [id number] FUTURE donepezil (ARICEPT) 5 mg tabletTake 1 tablet by mouth daily at bedtime.Disp: 30 tabletRfl: 0 Prescriptions as of 08/23/2017 Sig: SERTRALINE 50 MG TABLET TAKE 1 TABLET BY MOUTH EVERY * METOPROLOL SUCCINATE ER 25 MG* TAKE 1 TABLET BY MOUTH EVERY * COMPOUNDED PRESCRIPTION breast prostheses and post-cespedes* BENAZEPRIL 20 MG TABLET Take 1 tablet by mouth once d* OMEPRAZOLE 20 MG CAPSULE,ANDREAS* Take 1 capsule by mouth daily* LETROZOLE 2.5 MG TABLET Take 1 tablet by mouth once d* CLOPIDOGREL 75 MG TABLET Take 1 tablet by mouth once d* ATORVASTATIN 40 MG TABLET Take 1 tablet by mouth once d* ASPIRIN 81 MG TABLET,DELAYED * Take 2 tablets by mouth once * CHOLECALCIFEROL (VITAMIN D3) * Take 1 tablet by mouth once d* LANCETS Test blood sugar(s) 1 times d* BLOOD SUGAR DIAGNOSTIC STRIPS Test blood sugar(s) 1 times d* DONEPEZIL 5 MG TABLET Take 1 tablet by mouth daily * Problem List As Of Date 08/23/2017 Noted Resolved Coronary atherosclerosis [I25.10] INVALID FOR* More... Malignant neoplasm of female breast (HCC) [C50.*INVALID FOR* More... More... More... 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] INVALID FOR* Arthritis of knee [M17.10] INVALID FOR* Vitamin D deficiency [E55.9] INVALID FOR* Lumbosacral spondylosis without myelopathy [M47*INVALID FOR* Lumbar radiculopathy, chronic [M54.16] INVALID FOR* Iron deficiency anemia [D50.9] INVALID FOR* Post-traumatic osteoarthritis of left knee [M17*INVALID FOR* History of breast cancer in female [Z85.3] INVALID FOR* ASHD (arteriosclerotic heart disease) [I25.10] INVALID FOR* Hyperlipidemia LDL goal <100 [E78.5] INVALID FOR* Diabetes mellitus type 2, controlled, without c*INVALID FOR*10/20/2016 Benign hypertension [I10] INVALID FOR* Personal history of breast cancer [Z85.3] INVALID FOR* Anxiety and depression [F41.9, F32.9] INVALID FOR* Prescriptions ordered this encounter Disp Refills Start End DONEPEZIL 5 MG TABLET 30 t* 0 08/23/2017 Route: ORAL Sig: Take 1 tablet by mouth daily at bedtime. Medications Discontinued During This Encounter naproxen (NAPROSYN) 500 mg tablet 50 t* 5 07/14/2016 08/23/2017 Route: ORAL Sig: Take 1 tablet by mouth twice daily as needed (for pain/inflammation). Take with food. Disc: Discontinued by Patient triamcinolone (KENALOG IN ORABASE) 0* 15 g 0 01/08/2016 08/23/2017 Route: DENTAL Si application by DENTAL route twice daily. Disc: Discontinued by Patient nitroglycerin 0.1 mg/hr 90 P* 3 11/29/2013 08/23/2017 Route: TRANSDERMAL Sig: Apply 1 Patch as directed once daily. Disc: Discontinued by Patient Encounter Status:Closed by JERRY MENEZES PSYCHIATRIC CLINICIAN on 08/23/17 CARDIOLOGY VISIT Observed: 07/16/2017 Status: F Source: LIZETH REPORT 12:02 PM [facility] REPOSITORY [facility] [address] [place] [address]. [address] [place] [address] OFFICE VISIT Date of Service: 07/11/17 MR#: [id number] Acct: [id number] Name: LYNN MENEZES Rep #: [id number] : 1935 Provider: Jenny Denson Age/Sex: 82/F Location: [facility] Status: Signed HPI HPI Details: LYNN MENEZES, is a 82 F who presents to the office today for a cardiovascular follow-up. She has a history of coronary artery disease with bypass surgery in 2001 where she had a SVG to the LAD, SVG to the PDA of the RCA. She had a redo CABG in 2006 with SVG to the LAD. She also had an aortic valve replacement at that time with a bioprosthetic aortic valve for aortic stenosis. In 2009 she had stenting to her mid RCA and each graft to the LAD, and in 2014 she had stenting to her RCA. She also has a history of hypertension, hyperlipidemia. From a cardiac standpoint, patient is doing well. She does not have any chest discomfort/heaviness/tightness. Her exercise tolerance is stable for her age. She does not have any worsening symptoms of shortness of breath. She does not have any orthopnea. She denies PND. She does not have any symptoms of congestive heart failure. She does not have any palpitations that she is aware of. She does not have any lightheadedness or dizziness. She does not have any near-syncope or syncope. She does not have any lower extremity edema. She does not have any symptoms of claudication. Intake Vital Signs07/11/17 Height 5 ft 4 in 07/11/17 Weight: 139 lb 07/11/17 Body Mass Index (BMI) 23.8 07/11/17 Blood Pressure 120/80 07/11/17 Pulse Rate 64 07/11/17 Height 5 ft 4 in Intake Visit Reasons: 6 M FU Allergies sulfamethoxazole [From Septra] Allergy (Verified 07/11/17 13:03) Unknown trimethoprim [From Decra] Allergy (Verified 07/11/17 13:03) Unknown Medications ALPRAZolam [Xanax] 0.25 mg PO DAILY 07/21/14 [History Confirmed 12/08/14] Aspirin [Aspirin, Baby] 162 mg PO DAILY@0800 07/21/14 [History Confirmed 07/05/17] Cholecalciferol (VIT D3) [Vitamin D3] 2,000 unit PO DAILY 07/21/14 [History Confirmed 07/05/17] Clopidogrel Bisulfate [Plavix] 75 mg PO DAILY 07/21/14 [History Confirmed 07/05/17] Letrozole [Femara] 2.5 mg PO DAILY 07/21/14 [History Confirmed 07/05/17] Metoprolol(XL)Succ [Toprol Xl (Beta Bunny)] 25 mg PO DAILY 07/21/14 [History Confirmed 07/05/17] Rabeprazole Sodium [Aciphex] 10 mg PO DAILY 07/21/14 [History Confirmed 07/05/17] Sertraline HCl [Zoloft] 50 mg PO DAILY 07/21/14 [History Confirmed 07/05/17] atorvastatin 40 mg tablet 40 mg PO QDAY 07/05/17 [History Confirmed 07/05/17] benazepril 20 mg tablet PO 90 Days #90 07/11/17 [History Confirmed 07/11/17] Ejection fraction %: 60 to 64 PFSH Medical History Hyperlipidemia (Chronic) Hypertension (Chronic) Nonrheumatic aortic (valve) stenosis (Chronic) Presence of prosthetic heart valve (Chronic) 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) Angina pectoris (Chronic) Atherosclerotic heart disease of [place] coronary artery without angina pectoris (Chronic) Diabetes (Chronic) Surgical History Aortocoronary bypass status (Resolved) Presence of coronary angioplasty implant and graft (Resolved) Hx of CABG (Resolved) Family History Father CAD (coronary artery disease) Mother Colon cancer Son Myocardial infarction Heart disease Social History Smoking Status: Never smoker alcohol intake: never substance use type: does not use ROS Const Const: Negative for weakness, fatigue, fever(s) or headache(s) Eyes Eyes: Negative for blind spots, loss of peripheral vision or transient loss of vision ENT ENT: Negative for headache(s), dizziness, tinnitus or Nosebleed/epistaxis Cardio Chest Pain: No Palpitations: No Edema: None Muscle aches with walking: None Resp Respiratory: Negative for SOB with activity, SOB at rest, SOB orthopnea\SOB lying down or Cough GI GI: Negative nausea, vomiting, heartburn or vomiting blood/hematemesis : Negative for hematuria Musc Musc: Negative for muscle aches/ myalgia Neuro Neuro: Negative for weakness, headache(s), dizziness, near syncope, syncope, lightheadedness or orthostatic symptoms Bo Hematologic/Lymphatic: Negative for easy bleeding Endo Endo: Negative for fatigue Cardiology Exam Const Appearance: cooperative, no acute distress and well developed Orientation: alert, awake and oriented x3 Head Head: normocephalic and atraumatic Mouth: moist mucous membranes Eyes General: appearance normal, both eyes and all related structures Conjunctivae: conjunctivae normal Pupils: PERRL EOM: EOM intact bilaterally Neck Neck: normal visual inspection, no lymphadenopathy and no JVD Carotids: Negative bruit Neck Mass: Negative Neck mass Chest Chest inspection: normal inspection of the chest, symmetric chest movement and other (left mastectomy) Auscultation: Bilateral: Clear to Auscultation Cardio Palpation: normal PMI Rate: regular rate Rhythm: regular rhythm Heart sounds: S1 normal, S2 normal, gallop, murmur and positive S4; negative rub Murmur: Grade 2/6, soft and mid systolic GI GI: normal to inspection, soft, no hepatosplenomegaly and bowel sounds present; negative tender Neuro General: alert, awake, oriented x3, CN's II-XI intact bilaterally and moves all extremities Extremities Pulses: Normal: Right Posterior Tibial Pulse, Left Posterior Tibial Pulse, Right Radial Pulse, Left Radial Pulse Lower Extremity Edema: None: Bilateral Psych Psychological: normal affect Supplemental Info Echocardiogram in 2016 demonstrated an ejection fraction of 60%. Mild tricuspid valve insufficiency with moderate aortic stenosis when compared to previous no significant change. Heart catheterization in 2015 demonstrated bioprosthetic aortic valve stenosis, left main coronary disease mild. LAD total mid segment occlusion. Diagonal with mild disease. Ramus intermedius with mild isolated plaque. Codominant left circumflex with mild proximal disease. Codominant RCA with mild proximal disease. Old SVG to the proximal LAD diffusely diseased and small. Old SVG to the LAD also noted to be severely diseased. None of these vessels appeared to be amenable through with angioplasty. Medical management was recommended. Assessment AND Plan 1. Atherosclerosis of [place] coronary artery of [place] heart without angina pectoris I25.10 JERRICA Mcneal Stable, from a cardiac standpoint patient does not have any symptoms of angina. We recommend that they continue with current aggressive medical management and risk factor modification. 2. Essential hypertension I10 JERRICA Mcneal Blood pressure is well controlled on current medications, we do not recommend any changes at this time. 3. Pure hypercholesterolemia E78.00; E78.0 JERRICA Mcneal Recent lipid profile demonstrates total cholesterol 153, HDL 50, LDL 81. Will not make any adjustments. 4. Nonrheumatic aortic valve stenosis I35.0 Plan - JERRICA Leos Stable, will continue to monitor by history, exam and echocardiograms as deemed appropriate. She will continue with antibiotic prophylaxis. Plan Detail Other Orders Orders: Other Medications Discontinued: polyethylene glycol 3350 Discontinued Reason: Pt no longer 17 GM PO DAILY taking Additional Comments - JERRICA Leos The above patient was discussed with Dr. De La Cruz, he agrees with plan of care. Thank you for allowing us to participate in patient's plan of care, if you have any questions please do not hesitate to call. This note was generated using a voice recognition system and there may be incorrect words, spelling or punctuation errors that were not noted when reviewing the office note prior to saving. 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 transplanted heart: [place] heart Essential hypertension I10 Hypertension type: essential hypertension Pure hypercholesterolemia E78.00; E78.0 Hyperlipidemia type: pure hypercholesterolemia Nonrheumatic aortic valve stenosis I35.0 Cardiac valve disease etiology: nonrheumatic Coding Level of Care Code Off vis,est,level 3 Diagnoses Atherosclerosis of [place] coronary artery of [place] heart without angina pectoris I25.10 [place] vs. transplanted heart: [place] heart Essential hypertension I10 Hypertension type: essential hypertension Pure hypercholesterolemia E78.00; E78.0 Hyperlipidemia type: pure hypercholesterolemia Nonrheumatic aortic valve stenosis I35.0 Cardiac valve disease etiology: nonrheumatic 07/15/17 1722 <Electronically signed by Jenny BECERRIL> Date Jenny BECERRIL 07/16/17 1202<Electronically signed by Sachin De La Cruz MD> Cosigner Signature: Date (if applicable) Sachin De La Cruz MD CC: Florence Phillips III, MD LIVER PROFILE Collected: 07/11/2017 Status: F Source: LIZETH 9:03 AM [facility] REPOSITORY Order Comment: Order Date: 01/07/17 Order Info: 0788-1 - *Hepatic Function Panel Order Info: 11879-8 - *Lipid Profile CC PCP Comments: 12 hours fasting, may have water. TYPE CODE TESTS RESULT OUT OF RANGE REFERENCE UNITS LAB L501.1500 6.4-8.2 g/dL Normal T PROT 8.0 LAB L501.1800 3.2-5.0 g/dL Normal ALB 4.0 LAB L501.1950 2.2-4.2 g/dL Normal GLOB 4.0 LAB L501.4100 15-37 U/L Normal AST 25 LAB L501.4305 45-117 U/L Normal ALK P 96 LAB L501.4405 13-56 U/L Normal ALT 21 Result Comment: Please note revised ALT reference range effective 2017. LAB L501.4600 0.20-1.00 mg/dL Normal T BILI 0.70 LAB L501.4700 0.00-0.30 mg/dL Normal D BILI 0.16 Performed By: #### L500.3400 #### [facility] [address] [place], [address] LIPID PROFILE Collected: 07/11/2017 Status: F Source: LIZETH 9:03 AM [facility] REPOSITORY Order Comment: Order Date: 01/07/17 Order Info: 0788-1 - *Hepatic Function Panel Order Info: [id number] - *Lipid Profile CC PCP Comments: 12 hours fasting, may have water. TYPE CODE TESTS RESULT OUT OF RANGE REFERENCE UNITS LAB L501.4900 200 mg/dL Normal CHOL 153 Result Comment: <200 mg/dL Desirable 200-240 mg/dL Borderline >240 mg/dL High Risk LAB L501.5000 mg/dL Normal TRIG 110 Result Comment: The drugs N-Acetylcysteine and Metamizole may falsely depress this assay. Serum Triglycerides Reference Interval Normal <150 mg/dL Borderline high 150 - 199 mg/dL High 200 - 499 mg/dL Very High > or = 500 mg/dL LAB L501.6400 mg/dL Normal HDL 50 Result Comment: The drugs N-Acetylcysteine and Metamizole may falsely depress this assay. Reference Range HDL <40 mg/dL Low HDL Cholesterol HDL >or= 60 mg/dL High HDL Cholesterol LAB L501.6500 0-130 mg/dL Normal LDL 81 LAB L501.6600 5-40 mg/dL Normal VLDL 22 Performed By: #### L500.4100 #### [facility] [address] [place], [place], [id number] ALLERGIES ALLERGIES DATE TYPE / CODE NAME / CODE REACTION SEVERITY SOURCE Drug sulfamethoxazole/F0 Unknown Unknown [place] 8 Allergy/989472218( 29744585(RXNORM) [facility] SNOMED CT) Hospital Repository Drug trimethoprim/M65982 Unknown Unknown [place] 8 Allergy/587000081( 2873(RXNORM) [facility] SNOMED CT) Hospital Repository DRUG TRIMETHOPRIM UNKNOWN [place] INGREDI/355590667( [facility] SNOMED CT) [place] Repository DRUG CEPHALEXIN [place] [address] INGREDI/753047434( [facility] SNOMED CT) [place] Repository DRUG CODEINE GI UPSET [place] [address] INGREDI/391412934( [facility] SNOMED CT) [place] Repository DRUG VENLAFAXINE HCL [place] [address] INGREDI/625956880( [facility] SNOMED CT) [place] Repository DRUG FUROSEMIDE [place] [address] INGREDI/763635143( [facility] SNOMED CT) [place] Repository DRUG/822089488(SNO NITROFURANTOIN [place] [address]) [facility] [place] Repository DRUG/061231089(SNO ESOMEPRAZOLE [place] [address]) MAGNESIUM [facility] Main [place] Repository Miscellaneous OTHER RASH [place] Allergy/337469685( [facility] SNOMED CT) [place] Repository DRUG POTASSIUM [place] INGREDI/621298693( [facility] SNOMED CT) [place] Repository DRUG LANSOPRAZOLE [place] [address] INGREDI/412643060( [facility] SNOMED CT) [place] Repository DRUG/463521895(SNO SULFAMETHOXAZOLE-TR UNKNOWN [place] [address]) IMETHOPRIM [facility] [place] Repository DRUG BUPROPION HCL [place] [address] INGREDI/070746421( [facility] SNOM[facility] CT) [place] Repository ENCOUNTERS ENCOUNTERS ADMIT/DISCHARGE ACCOUNT ADMITTING ENCOUNTER LOCATION SOURCE NUMBER CLASS 05/15/2018 [id number] [facility] Hospital ing:[facility] Repository B 04/14/2018 [id number] [facility] Hospital ing:[facility] Repository B 03/15/2018 [id number] Ambulatory [facility] Hospital ing:[facility] Repository B 02/28/2018/02/29/20 [id number] Ambulatory [address] Repository 02/28/2018 [id number] [facility] Hospital ing:[facility] Repository B 02/16/2018 [id number] [facility] Hospital ing:[facility] Repository B 02/09/2018/02/10/20 [id number] Ambulatory BMSBuilding:B [place] 18 DC.[facility] Repository 02/08/2018/02/09/20 [id number] Ambulatory [address] Repository 02/08/2018/02/09/20 [id number] Ambulatory [address] Repository 02/02/2018/02/03/20 [id number] Ambulatory [address] Repository 01/18/2018 [id number] Ambulatory [facility] Hospital ing:[facility] Repository B 01/06/2018 [id number] [facility] B 12/16/2017 [id number] [facility] Rep[facility] B 12/14/2017 [id number] [facility] Hospital ing:[facility] Repository B 11/16/2017 [id number] [facility] Hospital ing:[facility] Repository B 10/17/2017 [id number] Ambulatory [facility] ing:OLS.[facility] Repository B 09/07/2017 [id number] Ambulatory [facility] ing:OLS.[facility] Repository C 09/01/2017/09/05/19 [id number] [place], Inpatient [place] 18 Paul Encounter [facility] ing:IH7Gpkf: Repository XT812Dhy: 1 09/01/2017 [id number] [place], Ambulatory BMSBuilding:B [place].[facility] Repository 09/01/2017 [id number] [place], Ambulatory BMSBuilding:B [place].[facility] Repository 09/01/2017 [id number] [place], Ambulatory BMSBuilding:B [place].[facility] Repository 08/31/2017 [id number] [place], Ambulatory BMSBuilding:B [place].[facility] Repository 08/31/2017 [id number] [place], Ambulatory BMSBuilding:B [place] Repository 08/31/2017 [id number] Ambulatory BMSBuilding:B [place].[facility] Repository 08/30/2017/08/31/19 [id number] Emergency [address] ing:ED Repository 08/23/2017/08/24/19 [id number] Ambulatory [address] Repository 08/23/2017/08/25/19 [id number] Ambulatory [address] Repository 07/11/2017/07/12/19 [id number] Ambulatory BMSBuilding:B [place] 18 MS.[facility] Repository 07/11/2017 [id number] Ambulatory [facility] ing:LAB Repository PAYERS PAYERS ENCOUNTER GUARANTOR PAYER SUBSCRIBER SOURCE 05/15/2018 LYNN Moscoso Primary NOT GIVENJANEEN Stanley [id number] Insurance:SELF PAY [facility]/O [facility] LORE Number: Effective [facility] [place] Date:2018-05-15 [id number]: () 04/14/2018 LYNN A Primary LYNN A [place] [id number] Insurance:MEDICARE SMITHDOB: [facility]/O PART A [address] LORE Number: Jono [place] [id number]: (330) Date:2018-04-14 () 04/14/2018 Secondary LYNN A [place] Insurance:HEALTH PLAN SMITHDOB: [address] Number: Repository [id number] Date: [place], [place] [address]VR: 04/14/2018 Tertiary NOT GIVENUNK [place] Insurance:SELF PAY [facility] Number: Effective Repository Date:2018-04-14 03/15/2018 LYNN A Primary LYNN A [place] [id number] Insurance:MEDICARE SMITHDOB: [facility]/O PART A [address] LORE Number: Repository [place] [id number]: (330) Date:2018-03-15 () 03/15/2018 Secondary LYNN A [place] Insurance:HEALTH PLAN SMITHB: [address] Number: Repository [id number] Date: [place], [place] [address]AO: 03/15/2018 Tertiary NOT GIVENUNK [place] Insurance:SELF PAY [facility] Number: Effective Repository Date:2018-03-15 02/28/2018 LYNN A Primary LYNN A [place] [id number] Insurance:MEDICARE SMITHDOB: [facility]/O PART A [address] LORE Number: [place] [id number]: (330) Date:2018-02-28 () 02/28/2018 Secondary LYNN A [place] Insurance:HEALTH PLAN SENECADOB: [address] Number: Repository [id number] Date: [place], [place] [address]VM: 02/28/2018 Tertiary NOT GIVENUNK [place] Insurance:SELF PAY [facility] Number: Effective Repository Date:2018-02-28 02/16/2018 LYNN A Primary LYNN A [place] [id number] Insurance:MEDICARE SMITHDOB: [facility]/O PART A [facility] [id number] Hospital LORE Number: Repository [place] [id number]: (153) Date:2018-02-16 () 02/16/2018 Secondary LYNN A [place] Insurance:HEALTH PLAN [facility] [address] Number: Repository [id number] Date: [place], [place] [address]SN: 02/16/2018 Tertiary NOT GIVENUNK [place] Insurance:SELF PAY [facility] Hospital Number: Effective Repository Date:2018-02-16 02/09/2018 LYNN A Primary LYNN A [place] [id number] Insurance:MEDICARE SMITHDOB: [facility]/O PART A [facility] [id number] Hospital LORE Number: [place] [id number]: [phone]) Date:2017-07-11 () 02/09/2018 Secondary [place] Insurance:HEALTH PLAN [facility] [id number] Number: Repository [id number] Date: [place], [place] [address]CE: 02/09/2018 Tertiary NOT GIVENUNK [place] Insurance:SELF PAY [facility] Number: Effective Repository Date:2017-12-25 01/18/2018 LYNN A Primary LYNN A [place] [id number] Insurance:MEDICARE SMITHDOB: [facility]/O PART A [facility] [id number] LORE Number: Repository [place] [id number]: (330) Date:2018-01-18 () 01/18/2018 Secondary LYNN A [place] Insurance:HEALTH PLAN SMITHDOB: [address] Number: Repository [id number] Date: [place], [place] [address]TQ: 01/18/2018 Tertiary NOT GIVENUNK [place] Insurance:SELF PAY [facility] Number: Effective Repository Date:2018-01-18 01/06/2018 LYNN A Primary LYNN [place] [id number] Insurance:MEDICARE [facility] [address] LORE Number: [place] [id number]: (330) Date:2018-01-06 () 01/06/2018 Secondary LYNN A [place] Insurance:HEALTH PLAN SMITHDOB: [address] Number: Repository [id number] Date: [place], [place] [address]KG: 01/06/2018 Tertiary NOT GIVENUNK [place] Insurance:SELF PAY [facility] Number: Effective Repository Date:2018-01-06 12/16/2017 LYNN A Primary LYNN [place] [id number] Insurance:MEDICARE [facility] [address] LORE Number: Repository [place] [id number]: (330) Date:2017-12-16 () 12/16/2017 Secondary LYNN A [place] Insurance:HEALTH PLAN SMITHDOB: [address] Number: Repository [id number] Date: [place], [place] [address]EN: 12/16/2017 Tertiary NOT GIVENUNK [place] Insurance:SELF PAY [facility] Number: Effective Repository Date:2017-12-16 12/14/2017 LYNN A Primary LYNN [place] [id number] Insurance:MEDICARE SMITHDOB: Community [address]/O PART A [facility] [id number] Hospital LORE Number: Repository [facility] [place] [id number]: (330) Date:2017-12-14 () 12/14/2017 Secondary LYNN A [place] Insurance:HEALTH PLAN SMITHDOB: [facility] [id number] Wausau Hospital Number: Repository [id number] Date: [place], [place] [address]OE: 12/14/2017 Tertiary NOT GIVENUNK [place] Insurance:SELF PAY [facility] Number: Effective Repository Date:2017-12-14 11/16/2017 LYNN A Primary LYNN [place] [id number] NATAS[place] Insurance:MEDICARE [facility] [place] [facility] [id number] Hospital [address]Lti: (330) Number: Repository [phone] () [id number] Date:2017-11-16 11/16/2017 Secondary LYNN A [place] Insurance:HEALTH PLAN SMITHDOB: [address]11-19[facility] Number: Repository [id number] Date: [place], [place] [address]ET: 11/16/2017 Tertiary NOT GIVENUNK [place] Insurance:SELF PAY [facility] Number: Effective Repository Date:2017-11-16 10/17/2017 Lynn A Primary Lynn A [place] [id number] NATASHA Insurance:MEDICARE SmithDOB: [place] PART A [facility] [id number] Hospital [address]Omv: (330) Number: Repository [phone] () [id number] Date:2017-10-17 10/17/2017 Secondary Lynn A [place] Insurance:HEALTH PLAN SmithDOB: [place] 081246-11-19[facility] Number: Repository [id number] Date: [place], [place] [address]TT: 10/17/2017 Tertiary NOT GIVENUNK [place] Insurance:SELF PAY [facility] Number: Effective Repository Date:2017-10-17 09/07/2017 LYNN A Primary NOT GIVENUNK [place] [id number] NATASHA Insurance:SELF PAY [facility] [address]Teb: (330) Number: Effective Repository [phone] () Date:2017-09-07 09/01/2017 LYNN A Primary LYNN [place] [id number] NATAS[place] Insurance:MEDICARE SMITHDOB: Community [facility] PART A [facility] [id number] Hospital [address]Pld: (330) Number: Repository [phone] () [id number] Date:2017-08-31 09/01/2017 Secondary LYNN A [place] Insurance:HEALTH PLAN SMITHDOB: [facility] 1939-52-91YKSAspirus Wausau Hospital Number: Repository [id number] Date: [place], [place] [address]VN: 09/01/2017 Tertiary NOT GIVENUNK [place] Insurance:SELF PAY [facility] Number: Effective Repository Date:2017-08-31 09/01/2017 LYNN A Primary LYNN A [place] [id number] NATASHA Insurance:MEDICARE SMITHDOB: [facility] PART A [facility] [id number] [id number]: (330) Number: Repository [phone] () [id number] Date:2017-08-31 09/01/2017 Secondary LYNN A [place] Insurance:HEALTH PLAN SMITHDOB: [place] [id number] Number: Repository [id number] Date: [place], [place] [address]DG: 09/01/2017 Tertiary NOT GIVENUNK [place] Insurance:SELF PAY [facility] Number: Effective Repository Date:2017-09-01 09/01/2017 LYNN A Primary [place] [id number] [place] Insurance:MEDICARE [place]DOB[place] [facility] [id number] Hospital [address]Ubt: (330) Number: Repository [phone] () [id number] Date:2017-08-31 09/01/2017 Secondary L[place] A [place] Insurance:HEALTH PLAN SMITHDOB: [facility] [id number] Wausau Hospital Number: Repository [id number] Date: [place], [place] [address]YH: 09/01/2017 Tertiary NOT GIVENUNK [place] Insurance:SELF PAY [facility] Number: Effective Repository Date:2017-09-01 09/01/2017 LYNN A Primary LYNN A [place] [id number] NTAASHA Insurance:MEDICARE [place]DOB[place] [facility] [id number] Hospital [address]Pzq: (330) Number: Repository [phone] () [id number] Date:2017-08-31 09/01/2017 Secondary LYNN A [place] Insurance:HEALTH PLAN SMITHDOB: [facility] [id number] Wausau Hospital Number: Repository [id number] Date: [place], [place] [address]YJ: 09/01/2017 Tertiary NOT GIVENUNK [place] Insurance:SELF PAY [facility] Number: Effective Repository Date:2017-09-01 08/31/2017 LYNN A Primary LYNN A [place] [id number] [place]AS[place] Insurance:MEDICARE [place]DOB[place] [facility] [id number] Hospital [address]Zij: (330) Number: Repository [phone] () [id number] Date:2017-08-31 08/31/2017 Secondary LYNN A [place] Insurance:HEALTH PLAN SMITHDOB: [facility] [id number] Wausau Hospital Number: Repository [id number] Date: [place], [place] [address]RX: 08/31/2017 Tertiary NOT GIVENUNK [place] Insurance:SELF PAY [facility] Number: Effective Repository Date:2017-08-31 08/31/2017 LYNN A Primary L[place] [id number] NATAS[place] Insurance:MEDICARE SMITHDOB: Community [facility] [place] PART A [facility] [id number] Hospital [address]Ggq: (330) Number: Repository [phone] () [id number] Date:2017-08-31 08/31/2017 Secondary LYNN A [place] Insurance:HEALTH PLAN SMITHDOB: [facility] [id number] Wausau Hospital Number: Repository [id number] Date: [place], [place] [address]WW: 08/31/2017 Tertiary NOT GIVENUNK [place] Insurance:SELF PAY [facility] Number: Effective Repository Date:2017-08-31 08/31/2017 LYNN A Primary LYNN A [place] [id number] NATASHA Insurance:MEDICARE SMITHDOB: [facility] [place] PART A [facility] [id number] Hospital [address]Tab: (330) Number: Repository [phone] () [id number] Date:2017-08-16 08/31/2017 Secondary LYNN A [place] Insurance:HEALTH PLAN SMITHDOB: [facility] [id number] Wausau Hospital Number: Repository [id number] Date: [place], [place] [address]OP: 08/31/2017 Tertiary NOT GIVENUNK [place] Insurance:SELF PAY [facility] Number: Effective Repository Date:2017-08-16 08/30/2017 LYNN A Primary LYNN A [place] [id number] [place] Insurance:MEDICARE [facility]OB[facility] [place] [facility] [id number] Hospital [address]Ivc: (330) Number: Repository [phone] () [id number] Date:2017-08-30 08/30/2017 Secondary LYNN A [place] Insurance:HEALTH PLAN SMITHDOB: [facility] [id number] Wausau Hospital Number: Repository [id number] Date: [place], [place] [address]TA: 08/30/2017 Tertiary NOT GIVENUNK [place] Insurance:SELF PAY [facility] Number: Effective Repository Date:2017-08-30 07/11/2017 LYNN A Primary LYNN [place] [id number] [place] Insurance:MEDICARE SMITHDOB: [facility] [place] PART A [facility] [id number] Hospital [address]Kqq: (330) Number: Repository [phone] () [id number] Date:2017-04-04 07/11/2017 Secondary LYNN A [place] Insurance:HEALTH PLAN SMITHDOB: [facility] [id number] Wausau Hospital Number: Repository [id number] Date: [place], [place] [address]IV: 07/11/2017 Tertiary NOT GIVENUNK [place] Insurance:SELF PAY [facility] Number: Effective Repository Date:2017-04-04 07/11/2017 LYNN A Primary LYNN A [place] [id number] [place]AS[place] Insurance:MEDICARE SMITHDOB: [facility] [place] PART A [facility] [id number] Hospital 16[address]Qpz: (330) Number: Repository [phone] () [id number] Date:2017-07-11 07/11/2017 Secondary LYNN A [place] Insurance:HEALTH PLAN SMITHDOB: [facility] [id number] Wausau Hospital Number: Repository [id number] [facility] [address]NN: 07/11/2017 Tertiary NOT GIVENUNK [place] Insurance:SELF PAY [facility] Number: Effective Repository Date:2017-07-11
== END ==
LOC: OLS.WHLTSB 04:30
PROVIDERS: Visit Provider Family Medicine
DX: I10 Essential (primary) hypertension (principal); D64.9 Anemia, unspecified; E78.5 Hyperlipidemia, unspecified; I25.10 Atherosclerotic heart disease of native coronary artery without angina pectoris; E55.9 Vitamin D deficiency, unspecified
CPT/HCPCS: 36415; 80048; 85027

== ENCOUNTER 2018-06-10 16:52 | Emergency (ER) | payer MEDICARE, OTHER, SELFPAY ==
[2018-06-10 17:24] VITALS: BP 158/68; PULSE 80; RESP 22; TEMP 37.1; O2SAT 97; BMI 24.7
--- NOTE | 2018-06-10 17:24 | EKG12_ITS ---
Test Reason : REPEAT EKG Blood Pressure : / mmHG Vent. Rate : 092 BPM Atrial Rate : 092 BPM P-R Int : 188 ms QRS Dur : 090 ms QT Int : 380 ms P-R-T Axes : 083 067 152 degrees QTc Int : 469 ms Normal sinus rhythm Left ventricular hypertrophy with repolarization abnormality Abnormal ECG Confirmed by EDGARDO TONY, SY ([id number]), medical editor SG DURBIN ([id number] on 06/13/2018 10:25:00 AM Referred By: SARAH Confirmed By:SY REYNOSO MD
--- NOTE | 2018-06-10 17:24 | RAD_ITS ---
STUDY: X-RAY CHEST REASON FOR EXAM: Female, 83 years old. Chest pain TECHNIQUE: AP COMPARISON: 12/07/2014 FINDINGS: The left breast is surgically absent. There are old, healed left rib fractures but new since the prior study. Lungs are hyperinflated. EKG leads project over the chest. There is no demonstrated pleural abnormality. Normal size heart. Sternal wires and mediastinal surgical clips compatible with prior CABG. Normal mediastinum and parvez. Normal visualized pulmonary arteries. There is atherosclerotic calcification of the aortic arch with tortuosity. There is demineralization of the osseous structures. No acute bony process. There is no demonstrated abnormality of the visualized soft tissue structures of the upper abdomen. RAD/Chest 1 View (Portable) IMPRESSION: Stable, nonacute portable x-ray examination of the chest. Electronically Signed: Geoff Sotelo MD at 17:40 EST , Service support ,
--- NOTE | 2018-06-10 17:26 | ED.VISSUMM ---
- ER Visit Summary Date of Service: 06/10/18 Chief Complaint: Left arm pain History of Present Illness: The patient is a 83 F with a significant cardiac history. Patient dropped left upper arm pain this morning that persisted into early afternoon. Pain seems to currently be resolved. Pain was worse with movement. Because of her heart history she went to ensure her heart was okay. She denies chest pain or shortness of breath with the episodes. Physical Examination: Vital signs significant for blood pressure of 170/76, otherwise unremarkable. Patient is lying in bed no acute distress. She is alert and talkative. Head neck examination unremarkable. Heart is regular rate and rhythm with a 2/6 murmur. Lungs sounds are clear. Abdomen is soft nontender. Extremity examination was no reproducible tenderness of the left shoulder or upper arm. She has full range of motion. There is a superficial abrasion noted on the top of the left shoulder that is nontender. Test Results: EKG is sinus at 94 with mild anterior lateral ST depression. This is changed compared to prior, however prior is from 2014. CBC and chemistry studies significant only for creatinine 1.16. Troponin is less than 0.015. Portable chest x-ray shows stable nonacute findings. Emergency Department Course and Treatment: On repeat evaluation patient is resting comfortably. She had no further pain while in the emergency room. A repeat EKG is unchanged and continues to show LVH with repol changes. Test results are discussed with patient and family at bedside. Patient be discharged and if she has recurrent pain, pain into her chest, shortness of breath, sweats, etc. patient is to return. She voices understanding and agreement. Treatment Plan: [] Disposition: Discharge Impression: Left shoulder pain, resolved This note was generated with [employer] dictation software. It may contain incorrect words, spelling, and punctuation that were not noted in review of the chart prior to signing ED Disposition - Plan for ED Patient: Disposition: Home or Assisted Living Instructions: ED Shoulder Pain [facility] Referrals: Dereck Phillips III, MD [Primary Care Provider] - 1 Week if not improving
[2018-06-10 17:27] VITALS: O2SAT 98
[2018-06-10 17:38] LABS: Absolute Lymphocyte Count 2.54 X10^3/ul (0.83-4.51); Absolute Neutrophil Count 4.4 X10^3/uL (2.0-7.7); Basophil# 0.03 X10^3/uL; Basophil% 0.4 % (0-1); Eosinophil# 0.49 X10^3/uL; Eosinophils% 6.1 % (0-5); Hematocrit 37.6 % (37-47); Hemoglobin 12.3 g/dl (12.0-15.0); Lymphocyte # 2.54 X10^3/ul (4.0); Lymphocyte % 31.9 % (19-41); Mean Corp Hgb Conc 32.7 g/gl (32-36); Mean Corpuscular Hgb 30.1 pg (27.0-32.0); Mean Corpuscular Volume 91.9 fL (81-99); Mean Platelet Vol. 9.4 fl (6.2-12.0); Monocyte% 6.3 % (0-10); Neutrophil % 55.2 % (47-70); POSITIVE COUNT NO; POSITIVE DIFFERENTIAL NO; POSITIVE MORPHOLOGY NO; Platelet Count 203 K/mm3 (150-450); RBC Distribution Width CV 13.8 % (11.6-14.6); RBC Distribution Width SD 45.8 fl (35.1-43.9); Red Blood Count 4.09 M/mm3 (4.2-5.4)
[2018-06-10 17:59] LABS: Anion Gap 8 (5-15); BUN 23 mg/dL (7-18); BUN/Creat Ratio 19.8 RATIO (10-20); Calcium,Total 9.2 mg/dL (8.5-10.1); Chloride 109 mmol/L (98-107); Creatinine, Serum 1.16 mg/dL (0.55-1.02); EST Glomerular Filtration Rate 48 mL/min (>60); Est Glom Filt Rate - Afr Amer 58 mL/min (>60); Estimated Creatinine Clearance 32.29 ml/min; Glucose 97 mg/dL (74-106); Potassium 4.3 mmol/L (3.5-5.1); Sodium Level 141 mmol/L (136-145)
--- NOTE | 2018-06-10 18:09 | EKG12_ITS ---
Test Reason : CP Blood Pressure : / mmHG Vent. Rate : 094 BPM Atrial Rate : 094 BPM P-R Int : 214 ms QRS Dur : 092 ms QT Int : 384 ms P-R-T Axes : 086 071 133 degrees QTc Int : 480 ms Sinus rhythm with 1st degree A-V block Left ventricular hypertrophy with repolarization abnormality Abnormal ECG Confirmed by EDGARDO TONY, SY ([id number]), sports editor SG DURBIN ([id number]) on 06/13/2018 10:25:16 AM Referred By: Confirmed By:SY REYNOSO MD
[2018-06-10 18:32] VITALS: BP 150/63; PULSE 75; RESP 16; O2SAT 95
== END 2018-06-10 18:39 | disposition home or self-care (01) ==
PROVIDERS: Emergency Provider Emergency Medicine; Family Provider Family Medicine; PCP Family Medicine
DX: M25.512 Pain in left shoulder (principal); R01.1 Cardiac murmur, unspecified; S40.212A Abrasion of left shoulder, initial encounter; X58.XXXA Exposure to other specified factors, initial encounter; Y93.9 Activity, unspecified; Y92.9 Unspecified place or not applicable; I25.10 Atherosclerotic heart disease of native coronary artery without angina pectoris; E11.9 Type 2 diabetes mellitus without complications; I10 Essential (primary) hypertension; E78.00 Pure hypercholesterolemia, unspecified; I35.0 Nonrheumatic aortic (valve) stenosis; Z85.3 Personal history of malignant neoplasm of breast; Z95.1 Presence of aortocoronary bypass graft; Z79.82 Long term (current) use of aspirin; Z79.899 Other long term (current) drug therapy
CPT/HCPCS: 71045; 80048; 84484; 85025; 93005; 99284; A4216

== ENCOUNTER → 2018-08-07 04:30 | Outpatient (REF) | payer MEDICARE, OTHER, SELFPAY ==
[2018-08-07 08:12] LABS: Hematocrit 34.2 % (37-47); Hemoglobin 11.1 g/dl (12.0-15.0); Mean Corp Hgb Conc 32.5 g/gl (32-36); Mean Corpuscular Hgb 29.8 pg (27.0-32.0); Mean Corpuscular Volume 91.9 fL (81-99); Mean Platelet Vol. 9.3 fl (6.2-12.0); Platelet Count 239 K/mm3 (150-450); RBC Distribution Width CV 13.3 % (11.6-14.6); RBC Distribution Width SD 44.5 fl (35.1-43.9); Red Blood Count 3.72 M/mm3 (4.2-5.4); White Blood Count 5.5 K/mm3 (4.4-11.0)
[2018-08-07 08:15] LABS: Scan Indicated on CBC? Y/N NO
[2018-08-07 08:16] LABS: Anion Gap 5 (5-15); BUN 19 mg/dL (7-18); BUN/Creat Ratio 17.4 RATIO (10-20); Calcium,Total 8.5 mg/dL (8.5-10.1); Chloride 111 mmol/L (98-107); Creatinine, Serum 1.09 mg/dL (0.55-1.02); EST Glomerular Filtration Rate 51 mL/min (>60); Est Glom Filt Rate - Afr Amer 62 mL/min (>60); Glucose 96 mg/dL (74-106); Potassium 4.3 mmol/L (3.5-5.1); Sodium Level 143 mmol/L (136-145)
[2018-08-07 08:22] LABS: Hemoglobin A1c 5.9 % (4.2-6.3)
== END ==
LOC: OLS.WHLTSB 04:30
PROVIDERS: Visit Provider Family Medicine
DX: E11.9 Type 2 diabetes mellitus without complications (principal); I10 Essential (primary) hypertension; E78.5 Hyperlipidemia, unspecified; I25.10 Atherosclerotic heart disease of native coronary artery without angina pectoris; E55.9 Vitamin D deficiency, unspecified
CPT/HCPCS: 36415; 80048; 83036; 85027

== ENCOUNTER → 2018-11-06 | Outpatient (REF) | payer MEDICARE, OTHER, SELFPAY ==
[2018-08-30 12:12] VITALS: BMI 25.5
[2018-11-06 07:56] LABS: Anion Gap 5 (5-15); BUN 19 mg/dL (7-18); BUN/Creat Ratio 17.6 RATIO (10-20); Calcium,Total 8.9 mg/dL (8.5-10.1); Chloride 109 mmol/L (98-107); Creatinine, Serum 1.08 mg/dL (0.55-1.02); EST Glomerular Filtration Rate 52 mL/min (>60); Est Glom Filt Rate - Afr Amer 62 mL/min (>60); Glucose 83 mg/dL (74-106); Hematocrit 35.1 % (37-47); Hemoglobin 11.3 g/dl (12.0-15.0); Mean Corp Hgb Conc 32.2 g/gl (32-36); Mean Corpuscular Hgb 29.7 pg (27.0-32.0); Mean Corpuscular Volume 92.4 fL (81-99); Mean Platelet Vol. 9.7 fl (6.2-12.0); Platelet Count 236 K/mm3 (150-450); Potassium 4.1 mmol/L (3.5-5.1); RBC Distribution Width CV 12.6 % (11.6-14.6); RBC Distribution Width SD 41.4 fl (35.1-43.9); Sodium Level 144 mmol/L (136-145)
[2018-11-06 08:00] LABS: Scan Indicated on CBC? Y/N NO
== END | disposition home or self-care (01) ==
LOC: OLS.WHLTSB 06:05
PROVIDERS: Visit Provider Family Medicine
DX: D64.9 Anemia, unspecified (principal); E78.5 Hyperlipidemia, unspecified; E55.9 Vitamin D deficiency, unspecified; I25.10 Atherosclerotic heart disease of native coronary artery without angina pectoris
CPT/HCPCS: 36415; 80048; 85027

== ENCOUNTER → 2018-12-01 15:00 | Outpatient (REF) | payer MEDICARE, OTHER, SELFPAY ==
[2018-08-30 12:12] VITALS: BMI 25.5
[2018-12-02 10:33] LABS: Color, Urine Yellow (Yellow); Glucose, Dipstick Normal (Normal); Ketone-Dipstick Negative (Negative); Leukocyte Esterase-Dipstick 100 /ul (Negative); Nitrite-Dipstick Negative (Negative); Occult Blood-Urine Negative /ul (Negative); Protein-Dipstick Negative (Negative); Specific Gravity, Urine 1.015 (1.002-1.030); Urine Bilirubin Dipstick Negative (Negative); Urine Clarity Clear (Clear); Urine Urobilinogen Normal (Normal); Urine pH 6.5 (5.0 - 8.0)
== END ==
LOC: OLS.WHLTSB 15:00
PROVIDERS: Visit Provider Family Medicine
DX: R29.6 Repeated falls (principal); M62.81 Muscle weakness (generalized); R26.81 Unsteadiness on feet; R54 Age-related physical debility; R41.841 Cognitive communication deficit; S22.41XD Multiple fractures of ribs, right side, subsequent encounter for fracture with routine healing; N39.41 Urge incontinence
CPT/HCPCS: 81002; 87086; 87088

== ENCOUNTER → 2019-01-11 05:00 | Outpatient (REF) | payer MEDICARE, OTHER, SELFPAY ==
[2018-08-30 12:12] VITALS: BMI 25.5
[2019-01-11 08:53] LABS: AST(SGOT) 19 U/L (15-37); Alanine Aminotransfer ALT/SGPT 14 U/L (13-56); Albumin, Serum 3.4 g/dL (3.2-5.0); Alkaline Phosphatase 84 U/L (45-117); Bilirubin, Direct 0.13 mg/dL (0.00-0.30); Cholesterol 158 mg/dL (200); Globulin 3.7 g/dL (2.2-4.2); High Density Lipoprotein 46 mg/dL; Protein, Total 7.1 g/dL (6.4-8.2); Triglycerides 128 mg/dL; Very Low Density Lipoprotein 26 mg/dL (5-40)
== END ==
LOC: OLS.WHLTSB 05:00
PROVIDERS: Visit Provider Family Medicine
DX: E78.5 Hyperlipidemia, unspecified (principal); R29.6 Repeated falls; M62.81 Muscle weakness (generalized); R26.81 Unsteadiness on feet; R54 Age-related physical debility; R41.841 Cognitive communication deficit; S22.41XD Multiple fractures of ribs, right side, subsequent encounter for fracture with routine healing; I25.810 Atherosclerosis of coronary artery bypass graft(s) without angina pectoris; I10 Essential (primary) hypertension; I35.0 Nonrheumatic aortic (valve) stenosis; Z95.5 Presence of coronary angioplasty implant and graft; Z95.1 Presence of aortocoronary bypass graft; Z95.2 Presence of prosthetic heart valve
CPT/HCPCS: 36415; 80061; 80076

== ENCOUNTER → 2019-01-16 | Outpatient (REF) | payer MEDICARE, OTHER, SELFPAY ==
[2018-08-30 12:12] VITALS: BMI 25.5
[2019-01-17 09:47] LABS: Color, Urine Yellow (Yellow); Glucose, Dipstick Normal (Normal); Ketone-Dipstick Negative (Negative); Leukocyte Esterase-Dipstick 25 /ul (Negative); Nitrite-Dipstick Negative (Negative); Occult Blood-Urine Negative /ul (Negative); Protein-Dipstick Negative (Negative); Urine Bilirubin Dipstick Negative (Negative); Urine Clarity Clear (Clear); Urine Urobilinogen Normal (Normal)
== END | disposition home or self-care (01) ==
LOC: OLS.WHLTSB 11:00
PROVIDERS: Visit Provider Family Medicine
DX: N39.41 Urge incontinence (principal)
CPT/HCPCS: 81002; 87086; 87088

== ENCOUNTER → 2019-02-12 05:00 | Outpatient (REF) | payer MEDICARE, OTHER, SELFPAY ==
[2018-08-30 12:12] VITALS: BMI 25.5
[2019-02-12 07:51] LABS: Hematocrit 33.8 % (37-47); Hemoglobin 10.8 g/dL (12.0-15.0); Mean Corpuscular Volume 93.9 fL (81-99); Mean Platelet Vol. 9.5 fl (6.2-12.0); Platelet Count 258 K/mm3 (150-450); RBC Distribution Width CV 12.1 % (11.6-14.6); RBC Distribution Width SD 41.9 fl (35.1-43.9); White Blood Count 8.2 K/mm3 (4.4-11.0)
[2019-02-12 07:58] LABS: Anion Gap 4 (5-15); BUN 22 mg/dL (7-18); BUN/Creat Ratio 20.2 RATIO (10-20); Calcium,Total 9.1 mg/dL (8.5-10.1); Chloride 109 mmol/L (98-107); Creatinine, Serum 1.09 mg/dL (0.55-1.02); EST Glomerular Filtration Rate 51 mL/min (>60); Est Glom Filt Rate - Afr Amer 62 mL/min (>60); Glucose 97 mg/dL (74-106); Potassium 4.6 mmol/L (3.5-5.1); Sodium Level 142 mmol/L (136-145)
[2019-02-12 08:28] LABS: Hemoglobin A1c 5.5 % (4.2-6.3)
== END ==
LOC: OLS.WHLTSB 05:00
PROVIDERS: Visit Provider Family Medicine
DX: I10 Essential (primary) hypertension (principal); R29.6 Repeated falls; M62.81 Muscle weakness (generalized); R54 Age-related physical debility; R41.841 Cognitive communication deficit; S22.41XD Multiple fractures of ribs, right side, subsequent encounter for fracture with routine healing; I25.10 Atherosclerotic heart disease of native coronary artery without angina pectoris; D64.9 Anemia, unspecified; E55.9 Vitamin D deficiency, unspecified; E78.5 Hyperlipidemia, unspecified; E11.9 Type 2 diabetes mellitus without complications
CPT/HCPCS: 36415; 80048; 83036; 85027

== ENCOUNTER → 2019-05-14 05:00 | Outpatient (REF) | payer MEDICARE, OTHER, SELFPAY ==
[2019-03-01 14:37] VITALS: BMI 26.6
[2019-05-14 09:12] LABS: Hematocrit 35.3 % (37-47); Mean Corp Hgb Conc 31.2 g/dL (32-36); Mean Corpuscular Hgb 29.5 pg (27.0-32.0); Mean Corpuscular Volume 94.6 fL (81-99); Mean Platelet Vol. 9.5 fl (6.2-12.0); Platelet Count 255 K/mm3 (150-450); RBC Distribution Width CV 12.8 % (11.6-14.6); RBC Distribution Width SD 44.3 fl (35.1-43.9); Red Blood Count 3.73 M/mm3 (4.2-5.4)
[2019-05-14 09:40] LABS: AST(SGOT) 19 U/L (15-37); Alanine Aminotransfer ALT/SGPT 15 U/L (13-56); Albumin, Serum 3.3 g/dL (3.2-5.0); Alkaline Phosphatase 98 U/L (45-117); Anion Gap 4 (5-15); BUN 18 mg/dL (7-18); BUN/Creat Ratio 16.1 RATIO (10-20); Calcium,Total 8.9 mg/dL (8.5-10.1); Chloride 109 mmol/L (98-107); Cholesterol 143 mg/dL (200); Creatinine, Serum 1.12 mg/dL (0.55-1.02); EST Glomerular Filtration Rate 49 mL/min (>60); Est Glom Filt Rate - Afr Amer 60 mL/min (>60); Glucose 84 mg/dL (74-106); High Density Lipoprotein 44 mg/dL; Potassium 4.6 mmol/L (3.5-5.1); Protein, Total 7.3 g/dL (6.4-8.2); Sodium Level 142 mmol/L (136-145); Triglycerides 78 mg/dL; Very Low Density Lipoprotein 16 mg/dL (5-40)
== END ==
LOC: OLS.WHLTSB 05:00
PROVIDERS: PCP Family Medicine; Visit Provider Family Medicine
DX: I10 Essential (primary) hypertension (principal); I25.10 Atherosclerotic heart disease of native coronary artery without angina pectoris; D64.9 Anemia, unspecified; E55.9 Vitamin D deficiency, unspecified; E78.5 Hyperlipidemia, unspecified; R29.6 Repeated falls; M62.81 Muscle weakness (generalized); R26.81 Unsteadiness on feet; R54 Age-related physical debility; R41.841 Cognitive communication deficit; S22.41XD Multiple fractures of ribs, right side, subsequent encounter for fracture with routine healing
CPT/HCPCS: 36415; 80048; 80061; 80076; 85027

== ENCOUNTER → 2019-09-10 05:00 | Outpatient (REF) | payer MEDICARE, OTHER, SELFPAY ==
[2019-03-01 14:37] VITALS: BMI 26.6
[2019-09-10 08:02] LABS: Hematocrit 34.5 % (37-47); Hemoglobin 11.1 g/dL (12.0-15.0); Mean Corp Hgb Conc 32.2 g/dL (32-36); Mean Corpuscular Hgb 30.5 pg (27.0-32.0); Mean Corpuscular Volume 94.8 fL (81-99); Mean Platelet Vol. 9.9 fl (6.2-12.0); Platelet Count 217 K/mm3 (150-450); RBC Distribution Width CV 12.4 % (11.6-14.6); Red Blood Count 3.64 M/mm3 (4.2-5.4); White Blood Count 7.6 K/mm3 (4.4-11.0)
[2019-09-10 08:18] LABS: Anion Gap 4 (5-15); BUN 24 mg/dL (7-18); Chloride 112 mmol/L (98-107); EST Glomerular Filtration Rate 46 mL/min (>60); Est Glom Filt Rate - Afr Amer 55 mL/min (>60); Glucose 82 mg/dL (74-106); Potassium 4.8 mmol/L (3.5-5.1); Sodium Level 144 mmol/L (136-145)
[2019-09-10 08:38] LABS: Hemoglobin A1c 5.7 % (4.2-6.3)
== END ==
LOC: OLS.WHLTSB 05:00
PROVIDERS: PCP Family Medicine; Visit Provider Family Medicine
DX: E11.9 Type 2 diabetes mellitus without complications (principal); R29.6 Repeated falls; M62.81 Muscle weakness (generalized); R26.81 Unsteadiness on feet; R54 Age-related physical debility; R41.841 Cognitive communication deficit; S22.41XD Multiple fractures of ribs, right side, subsequent encounter for fracture with routine healing; I25.10 Atherosclerotic heart disease of native coronary artery without angina pectoris; E78.5 Hyperlipidemia, unspecified; E55.9 Vitamin D deficiency, unspecified; D64.9 Anemia, unspecified; I10 Essential (primary) hypertension
CPT/HCPCS: 36415; 80048; 83036; 85027

== ENCOUNTER → 2019-12-19 09:40 | Outpatient (CLI) | payer MEDICARE, OTHER, SELFPAY ==
[2019-09-25 15:12] VITALS: BMI 26.6
--- NOTE | 2019-12-19 09:42 | ECHOD_ITS ---
Reason For Study: CAD/ASHD Procedure This was a 2D Doppler, Color Flow transthoracic echocardiogram. Myocardial strain analysis was performed in this exam to aid in the assessment of cardiac function. Exam performed in department. Left Ventricle Normal LV size. Moderate concentric left ventricular hypertrophy. Left ventricular systolic function is normal. The estimated ejection fraction is 60 %. Stage 1 diastolic dysfunction. No regional wall motion abnormalities noted. Right Ventricle Normal RV size. Normal systolic function. Atria Normal left atrium. Normal right atrium. Mitral Valve There is moderate mitral annular calcification. Mild (1+) eccentric mitral valve insufficiency. Tricuspid Valve Normal tricuspid valve. Mild (1+) tricuspid valve insufficiency. Pulmonary artery systolic pressure is 30 mmHg. Aortic Valve Peak aortic valve gradient 38 mmHg. Mean aortic valve gradient 20 mmHg. Mild aortic stenosis. Bioprosthetic aortic valve. Pulmonic Valve The pulmonic valve is not well visualized. Great Vessels Normal aortic root. The pulmonary artery is normal size. Normal inferior vena cava. Pericardium/Pleural No pericardial effusion. MMode/2D Measurements & Calculations LVIDd: 2.5 cm IVSd: 1.4 cm LVOT diam: 2.1 cm LVIDs: 1.6 cm LVPWd: 1.3 cm LVOT area: 3.5 cm2 RVDd: 3.0 cm FS: 34.2 % Ao root diam: 3.3 cm LAV(MOD-bp): 62.9 ml LA A4 area: 21.0 cm2 LAV(MOD-bp) Indexed: 35.8 ml/m2 LAV(MOD-sp2): 54.8 ml LAV(MOD-sp4): 57.5 ml LA dimension(2D): 3.7 cm RA A4 area: 9.7 cm2 Time Measurements MV dec time: 0.16 sec Doppler Measurements & Calculations MV E max demarco: 119.3 cm/sec Lat Peak E' Demarco: 6.0 cm/sec Med Peak E' Demarco: 4.3 cm/sec MV A max demarco: 151.7 cm/sec E/E' lat: 19.9 E/E' med: 28.0 MV E/A: 0.79 MV V2 max: 170.6 cm/sec MV P1/2t max demarco: 129.1 cm/sec Ao V2 max: 311.2 cm/sec MV max P.7 mmHg MV P1/2t: 147.8 msec Ao max P.8 mmHg MV V2 mean: 102.9 cm/sec MV dec slope: 255.8 cm/sec2 Ao V2 mean: 215.4 cm/sec MV mean P.6 mmHg Ao mean P.7 mmHg MV V2 VTI: 45.6 cm MVA(P1/2t): 1.5 cm2 Ao V2 VTI: 57.8 cm MVA(VTI): 2.1 cm2 HOLLIS(I,D): 1.7 cm2 HOLLIS(V,D): 1.7 cm2 LV V1 max: 153.0 cm/sec SV(LVOT): 98.0 ml PA V2 max: 112.7 cm/sec LV V1 max P.4 mmHg LV V1 mean P.8 mmHg LV V1 mean: 104.1 cm/sec LV V1 VTI: 27.8 cm TR max demarco: 254.7 cm/sec TR max P.9 mmHg Interpretation Summary Normal LV size. Moderate concentric left ventricular hypertrophy. Left ventricular systolic function is normal. The estimated ejection fraction is 60 %. Stage 1 diastolic dysfunction. The global longitudinal strain is normal. The global longitudinal strain = -19.9 % (normal). Ordering Physician: Sachin De La Cruz Referring Physician: Dereck Phillips Performed By: Susan Morocho, GOPAL, RVT
== END ==
PROVIDERS: PCP Family Medicine; Referring Provider Internal Medicine Cardiovascular Disease; Visit Provider Internal Medicine Cardiovascular Disease
DX: I25.10 Atherosclerotic heart disease of native coronary artery without angina pectoris (principal); C50.919 Malignant neoplasm of unspecified site of unspecified female breast; E78.5 Hyperlipidemia, unspecified; I10 Essential (primary) hypertension; I35.0 Nonrheumatic aortic (valve) stenosis; Z95.2 Presence of prosthetic heart valve; Z95.5 Presence of coronary angioplasty implant and graft
CPT/HCPCS: 93306

== ENCOUNTER → 2020-01-28 04:00 | Outpatient (REF) | payer MEDICARE, SELFPAY ==
[2019-09-25 15:12] VITALS: BMI 26.6
[2020-01-28 07:05] LABS: Hematocrit 30.3 % (37-47); Hemoglobin 9.4 g/dL (12.0-15.0); Mean Corpuscular Hgb 28.9 pg (27.0-32.0); Mean Corpuscular Volume 93.2 fL (81-99); Mean Platelet Vol. 10.1 fl (6.2-12.0); Platelet Count 285 K/mm3 (150-450); RBC Distribution Width CV 11.9 % (11.6-14.6); RBC Distribution Width SD 41.4 fl (35.1-43.9); Red Blood Count 3.25 M/mm3 (4.2-5.4); White Blood Count 9.1 K/mm3 (4.4-11.0)
[2020-01-28 07:22] LABS: Hemoglobin A1c 5.9 % (3.8-5.6)
[2020-01-28 07:26] LABS: Anion Gap 3 (5-15); BUN 22 mg/dL (7-18); BUN/Creat Ratio 17.3 RATIO (10-20); Calcium,Total 8.7 mg/dL (8.5-10.1); Chloride 108 mmol/L (98-107); Creatinine, Serum 1.27 mg/dL (0.55-1.02); EST Glomerular Filtration Rate 43 mL/min (>60); Est Glom Filt Rate - Afr Amer 52 mL/min (>60); Glucose 90 mg/dL (74-106); Magnesium 2.2 mg/dL (1.6-2.6); Potassium 4.2 mmol/L (3.5-5.1); Sodium Level 141 mmol/L (136-145)
[2020-02-04 16:46] VITALS: BMI 25.5
== END ==
LOC: OLS.WHLTSB 04:00
PROVIDERS: PCP Family Medicine; Visit Provider Family Medicine
DX: Z01.818 Encounter for other preprocedural examination (principal); Z79.899 Other long term (current) drug therapy
CPT/HCPCS: 36415; 80048; 83036; 83735; 85027; 87081; 87635; U0003

== ENCOUNTER 2020-02-04 13:21 | Inpatient (IN) | payer MEDICARE, OTHER, SELFPAY ==
[2019-09-25 15:12] VITALS: BMI 26.6
[2020-02-04] VITALS (11 sets, daily range): BP systolic 113–127; BP diastolic 54–76; PULSE 86–120; RESP 16–20; TEMP 36.1–37.4; O2SAT 93–100; BMI 25.5
[2020-02-04] MEDS: Gabapentin 600 MG Tablet PO (11:18)
[2020-02-04] MEDS: Acetaminophen 500 MG Tablet 1000 MG PO ×2 (11:18→20:24)
[2020-02-04] MEDS: Lactated Ringers 1,000 ML 100 ML IV ×2 (11:19→18:17)
[2020-02-04 11:45] LABS: Bedside Glucose 144 mg/dL (70-110)
--- NOTE | 2020-02-04 12:30 | KNEE_PTH ---
PATIENT: JACLYN DELCID LOC: MS3 U#:[id number] AGE/SX: 84/F [place] [facility] [place]02/05/[address]: Dr. Lester Parson DO : 1935 BED: 1 DIS: 02/06/2020 SPEC #: [id number] RECD: 02/05/20 07:25 STATUS: CIRAA MIXON #: [id number] CARISSA: 02/04/20 12:[address]: Lester Parson DEPT: SURGICAL PATHOLOGY RECD BY: Shantanu Torres ENTERED: 02/05/20 08:25 SP TYPE: TOTAL KNEE OTHR DR: Dr. Dereck Phillips III, MD Tissues: Knee, NOS Procedures: Decalcification bone/plaque Surgery Specimen Level IV HEADER OPERATION: ERAS, total knee replacement PRE-OP DIAGNOSIS: Unilateral primary osteoarthritis left knee TISSUE SUBMITTED: Bone and soft tissue left knee MICROSCOPIC DIAGNOSIS Bone and soft tissue, left knee, total knee replacement: Pieces of bone with degenerative osteoarthritic changes. Fibroadipose tissue, fibroconnective tissue and moderately reactive synovial tissue with chronic inflammation. GALLITO:lex 02/08/20 MICROSCOPIC DESCRIPTION Slides are reviewed. GROSS DESCRIPTION Received is one container designated bone and soft tissue left knee. The specimen consists of multiple fragments of guerra-yellow bone measuring in aggregate 15 x 13 x 2 cm. Also in the specimen container are multiple fragments of yellow-white soft tissue measuring in aggregate 11 x 9 x 2 cm. A number of bony fragments contain articular surfaces consistent with tibial plateau and femoral condyle and displaying prominent osteophyte formation, eburnation, and bone erosion. Research Epidemiologist sections are submitted in two cassettes as follows: 1 - soft tissue, 2 - bone after decalcification. / AM:lex 02/05/20 TC:5 [facility]: [id number], [id number]
--- NOTE | 2020-02-04 14:43 | OP.PCM_ITS ---
Report of Operation Date of Procedure: 02/04/20 Pre-Operative Diagnosis: OA left knee Post-Operative Diagnosis: same Surgery/Procedure Performed:: Left TKR security support analyst: Wes Martinez Type of Anesthesia:: General/Regional Anesthesiologist: Diogenes Bagley - Admaurelio VTE Documentation VTE Present on Admission: No VTE Mechan Device Prophylaxis: SCD's, Thigh High DAYLIN Hose VTE Pharm Prophylaxis ordered?: Yes
--- NOTE | 2020-02-04 15:55 | RAD_ITS ---
STUDY: X-RAY - LEFT KNEE REASON FOR EXAM: Female, 84 years old. POST OP LEFT KNEE TECHNIQUE: 2 view(s) of the knee. COMPARISON: 08/30/2017 FINDINGS: Status post posterior total Left knee replacement since a previous study. The hardware components are well aligned. Postsurgical changes in the adjacent soft tissue. Anterior spurring louisa are noted. RAD/Knee 1 or 2 Views IMPRESSION: Total left knee replacement with postsurgical changes. Electronically Signed: James West DO at 16:20 EDT Tel [phone], Service support ,
[2020-02-04 16:25] LABS: Hematocrit 29.3 % (37-47); Hemoglobin 9.3 g/dL (12.0-15.0); Mean Corp Hgb Conc 31.7 g/dL (32-36); Mean Corpuscular Hgb 29.5 pg (27.0-32.0); Mean Platelet Vol. 9.8 fl (6.2-12.0); Platelet Count 323 K/mm3 (150-450); RBC Distribution Width SD 40.9 fl (35.1-43.9); Red Blood Count 3.15 M/mm3 (4.2-5.4); White Blood Count 10.6 K/mm3 (4.4-11.0)
[2020-02-04 16:33] LABS: Anion Gap 4 (5-15); BUN 18 mg/dL (7-18); BUN/Creat Ratio 13.5 RATIO (10-20); Calcium,Total 9.2 mg/dL (8.5-10.1); Chloride 108 mmol/L (98-107); Creatinine, Serum 1.33 mg/dL (0.55-1.02); EST Glomerular Filtration Rate 40 mL/min (>60); Est Glom Filt Rate - Afr Amer 49 mL/min (>60); Estimated Creatinine Clearance 27.68 ml/min; Glucose 180 mg/dL (74-106); Potassium 4.1 mmol/L (3.5-5.1); Sodium Level 141 mmol/L (136-145)
[2020-02-04] MEDS: Mirtazapine 30 MG Tablet PO (20:22)
[2020-02-04] MEDS: Senna/Docusate Sodium 1 Tablet 2 TABLET PO (20:22)
[2020-02-04] MEDS: Donepezil HCl 5 MG Tablet 10 MG PO (20:22)
[2020-02-04] MEDS: Atorvastatin Calcium 40 MG Tablet PO (20:27)
[2020-02-05] VITALS (11 sets, daily range): BP systolic 93–114; BP diastolic 44–61; PULSE 70–93; RESP 16–18; TEMP 36.3–37.1; O2SAT 94–98
[2020-02-05] MEDS: Ondansetron 4 MG/2 ML Vial IV (01:13)
[2020-02-05] MEDS: Acetaminophen 500 MG Tablet 1000 MG PO ×3 (05:31→22:02)
[2020-02-05 06:17] LABS: Hematocrit 26.7 % (37-47); Hemoglobin 8.4 g/dL (12.0-15.0); Mean Corp Hgb Conc 31.5 g/dL (32-36); Mean Corpuscular Hgb 29.4 pg (27.0-32.0); Mean Corpuscular Volume 93.4 fL (81-99); Mean Platelet Vol. 10.1 fl (6.2-12.0); Platelet Count 216 K/mm3 (150-450); RBC Distribution Width CV 11.9 % (11.6-14.6); RBC Distribution Width SD 40.6 fl (35.1-43.9); Red Blood Count 2.86 M/mm3 (4.2-5.4); White Blood Count 12.6 K/mm3 (4.4-11.0)
[2020-02-05 06:55] LABS: Anion Gap 8 (5-15); BUN 19 mg/dL (7-18); BUN/Creat Ratio 16.2 RATIO (10-20); Calcium,Total 8.3 mg/dL (8.5-10.1); Chloride 106 mmol/L (98-107); Creatinine, Serum 1.17 mg/dL (0.55-1.02); EST Glomerular Filtration Rate 47 mL/min (>60); Est Glom Filt Rate - Afr Amer 57 mL/min (>60); Estimated Creatinine Clearance 31.46 ml/min; Glucose 108 mg/dL (74-106); Potassium 4.8 mmol/L (3.5-5.1); Sodium Level 136 mmol/L (136-145)
[2020-02-05] MEDS: 0.9% Normal Saline 1,000 ML 999 ML IV (07:50)
[2020-02-05 08:01] LABS: Bedside Glucose 155 mg/dL (70-110)
--- NOTE | 2020-02-05 08:05 | PCM.PN.ORT ---
Subjective: Patient sitting in chair at bedside, appears that she had been eating breakfast. Patient was unresponsive, with practical nursing instructor patient moved back to bed. Objective: Upon entering the room I found patient sitting in a chair head flexed forward in a sniffing position. Patient appears that she has been eating breakfast. Patient was breathing, with shallow respiratory effort did not appear to be labored. Patient had no palpable radial pulse, however had a weak thready carotid pulse. Patient was moved to bed the head was tilted back patient was moving good air with no respiratory distress or indication of compromised airway. The rapid response team was notified. Medical management was then turned over to the on-duty hospitalist, and rapid response team. It was identified patient had severe hypotension. Patient began to respond to verbal stimuli after being placed into a Trendelenburg position. Began speaking to staff. - Physical Exam Vitals/I&O's: Vital Signs Temp Pulse Resp BP Pulse Ox 97.5 F L 72 16 112/61 96 02/05/20 05:18 02/05/20 05:18 02/05/20 05:18 02/05/20 05:18 02/05/20 05:18 Oxygen Flow Rate (L/min) 6 Oxygen Delivery Method Room Air Weight: 67.6 kg Body Mass Index (BMI) 25.5 Intake and Output for Last 24 Hours 02/03/20 02/04/20 02/05/20 23:59 23:59 23:59 Intake Total 1279.00 / 1354.00 1123.25 / 1123.25 Output Total 500 / 500 Balance 1279.00 / 1354.00 623.25 / 623.25 Laboratory Results 02/04/20 11:05: POC Glucose 144 H 02/04/20 11:18: Blood Type A POSITIVE, Antibody Screen POSITIVE H, Antibody Identification ANTI-M, Crossmatch See Detail 02/04/20 16:12: WBC 10.6, RBC 3.15 L, Hgb 9.3 L, Hct 29.3 L, MCV 93.0, MCH 29.5, MCHC 31.7 L, RDW Std Deviation 40.9, RDW Coeff of Iqra 12.0, Plt Count 323, MPV 9.8 02/04/20 16:12: Sodium 141, Potassium 4.1, Chloride 108 H, Carbon Dioxide 29.0, Anion Gap 4 L, BUN 18, Creatinine 1.33 H, Estim Creat Clear Calc 27.68, Est GFR (MDRD) Af Amer 49 L, Est GFR (MDRD) Non-Af 40 L, BUN/Creatinine Ratio 13.5, Glucose 180 H, Calcium 9.2 02/05/20 05:45: WBC 12.6 H, RBC 2.86 L, Hgb 8.4 L, Hct 26.7 L, MCV 93.4, MCH 29.4, MCHC 31.5 L, RDW Std Deviation 40.6, RDW Coeff of Iqra 11.9, Plt Count 216, MPV 10.1 02/05/20 05:45: Sodium 136, Potassium 4.8, Chloride 106, Carbon Dioxide 22.0, Anion Gap 8, BUN 19 H, Creatinine 1.17 H, Estim Creat Clear Calc 31.46, Est GFR (MDRD) Af Amer 57 L, Est GFR (MDRD) Non-Af 47 L, BUN/Creatinine Ratio 16.2, Glucose 108 H, Calcium 8.3 L 02/05/20 07:52: POC Glucose 155 H Current Medications Acetaminophen (Tylenol) 1,000 mg PO Q8 [facility] Last Admin: 02/05/20 05:31 Dose: 1,000 mg Documented by: Acetaminophen (Tylenol) 650 mg PO Q6H PRN PRN PRN Reason: Mild Pain (1-3)/Temp > 100.7 F Aspirin (Aspirin, Baby) 81 mg PO DAILY@0800 [facility] Atorvastatin Calcium (Lipitor) 40 mg PO QHS [facility] Last Admin: 02/04/20 20:27 Dose: 40 mg Documented by: Bisacodyl (Dulcolax) 10 mg RECTAL DAILY PRN PRN PRN Reason: constipation Cholecalciferol (Vitamin D (25mcg)) 2,000 unit PO DAILY [facility] Donepezil HCl (Aricept) 10 mg PO QHS [facility] Last Admin: 02/04/20 20:22 Dose: 10 mg Documented by: Ferrous Sulfate (Ferrous Sulfate) [facility] Sodium Chloride () 1,000 mls @ 999 mls/hr IV .Q1H1M ONE Stop: 02/05/20 08:54 Insulin Human Lispro (Humalog Sudarshan (Bkc)) 1 - 6 unit SC Q4H PRN PRN; Protocol PRN Reason: BG>/= 180, SEE PROTOCOL Letrozole (Femara) 2.5 mg PO DAILY [facility] Lisinopril (Zestril) 20 mg PO LUNCH [facility] Metoprolol Succinate (Toprol Xl (Beta Bunny)) 25 mg PO DAILY [facility] Mirtazapine (Remeron) 30 mg PO QHS OSMAN Last Admin: 02/04/20 20:22 Dose: 30 mg Documented by: Ondansetron HCl (Zofran) 4 mg IV Q8H PRN PRN PRN Reason: NAUSEA Last Admin: 02/05/20 01:13 Dose: 4 mg Documented by: Oxycodone HCl (Oxyir) 5 - 10 mg PO Q4H PRN PRN PRN Reason: Pain Score 4-10 Promethazine HCl (Phenergan) 12.5 mg IM Q6H PRN PRN; Protocol PRN Reason: NAUSEA/VOMITING Senna/Docusate Sodium (Senokot-S, Hansa-Colace) 2 tablet PO BID [facility] Last Admin: 02/04/20 20:22 Dose: 2 tablet Documented by: Sodium Chloride () 5 - 15 ml IV UD PRN PRN Reason: SALINE FLUSH Sodium Chloride () 10 - 40 ml IV UD PRN PRN Reason: SALINE FLUSH Tramadol HCl (Ultram) 50 mg PO Q6H PRN PRN Reason: Pain 1-10 or Fever Medical Necessity - Tobacco Use Smoking Status: Never smoker Tobacco Use: Non-smoker Assessment/Plan All Active Problems (Last Reviewed 09/25/19 @ 15:[address] Sachin De La Cruz MD) History of coronary artery stent placement (Resolved 06/17/09) H/O coronary artery bypass surgery (Resolved 05/23/06) H/O aortic valve replacement (Resolved 05/23/06) Breast cancer (Resolved) Chest pain (Resolved) Scarlet fever (Resolved) Status post left total knee arthroplasty. Unresponsive Plan 1. Medicine will continue to medically manage this patient. Any adjustments with medication will be directed by medicine. 2. When clear by medicine patient be can continue with physical therapy.
--- NOTE | 2020-02-05 08:20 | EKG12_ITS ---
Test Reason : Blood Pressure : / mmHG Vent. Rate : 078 BPM Atrial Rate : 078 BPM P-R Int : 170 ms QRS Dur : 104 ms QT Int : 470 ms P-R-T Axes : 083 064 089 degrees QTc Int : 535 ms Sinus rhythm with marked sinus arrhythmia Nonspecific ST and T wave abnormality Prolonged QT Abnormal ECG When compared with ECG of 10-JUN-2018 18:21, ST no longer depressed in Anterior leads QT has lengthened Confirmed by ANGI TONY, ANTELMO ([id number]), editor continuity and script SG DURBIN ([id number]) on 02/19/2020 8:50:17 AM Referred By: Lester Parson Confirmed By:EFREN WHITLEY MD
--- NOTE | 2020-02-05 09:15 | NURSING ---
approx 8 this am (see OFFICE SUPPORT SPECIALIST notes) pt found unreponsive in chair, lift carried back to bed, pt unresponsive to sternal rub for short time, carotid pulse palpated but no radial-BGS bedside wnl, low bp, hospitalist dr zheng and Murphy Mcclelland at bedside .9 ns bolus started, pt quickly became more responsive, aware she was at [facility], speech clear-pt known dementia-bolus at this time infused, pt maintains alertness, and a&o x2 unclear on time-2nd bag of fluid hung at this time .9 ns @ [address] zheng-pt in bed w/ hob up 25 degrees and b/p maintaining
[2020-02-05] MEDS: 0.9% Normal Saline 1,000 ML 50 ML IV (09:40)
[2020-02-05 10:24] LABS: Hemoglobin 8.9 g/dL (12.0-15.0)
--- NOTE | 2020-02-05 11:15 | CASEMGMT ---
Addendum entered by Isabel Magana 02/05/20 15:05: RADHA faxed COVID test and COVID screening tool to [facility]. No PT/OT available. Original Note: Social Work Note SW received update from Kori at [facility] that pt was at [facility] and plan is for pt to return [facility] skilled. Kori states pt will need new COVID test to return. SW in to speak with pt. Pt's son David present in room. RADHA introduced self and role at [facility]. Pt is alert and orientated, does have history of dementia. Pt confirms that she was from [facility] and will be returning [facility] skilled. David also confirms plan. RADHA faxed updated clinicals to Koir at [facility]. Pt not medically ready for discharge today. RADHA placed transfer to extended care facility on pt's chart. Plan: Return to [facility] skilled Isabel Magana RECRUITMENT COORDINATOR, SANITARIAN
--- NOTE | 2020-02-05 11:34 | PCM.PN.HOSP ---
Subjective: Ms Menezes is an 84 yo WF with a PMH of AVR in 2006 (bioprosthetic), CAD s/p CABG 2001 and 2006 with PCI 2009, Breast cancer, dementia, HTN, HPL, vitamin D deficiency, anemia 2/2 Fe Deficiency and OA who presented to the hospital for an elective L TKA on 02/04/2020. 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 Pt was found to be markedly hypotensive with SBP in the 80's. She was placed in trendelenberg and NS was given wide open. Her MS and BP did eventually return to baseline following the bolus. She had some bleeding via her incision bandage and hgb did drop from 9.3 to 8.4 but repeat this am at 10 showed hbg of 8.9 despite IVF. Her MS did return to baseline and she was maintained on Med 3 with tele. Vitals/I&O's: Vital Signs Temp Pulse Resp BP Pulse Ox 98 F 70 18 107/46 L 96 02/05/20 10:00 02/05/20 10:00 02/05/20 10:00 02/05/20 10:00 02/05/20 10:00 Oxygen Flow Rate (L/min) 2 Oxygen Delivery Method Nasal Cannula Weight: 67.6 kg Body Mass Index (BMI) 25.5 Intake and Output for Last 24 Hours 02/03/20 02/04/20 02/05/20 23:59 23:59 23:59 Intake Total 1279.00 / 1354.00 2123.25 / 2123.25 Output Total 500 / 500 Balance 1279.00 / 1354.00 1623.25 / 1623.25 General: Cooperative, No apparent distress, Well developed, Well nourished, - - pt was initally obtunded but responsiveness slowly improved with improved BP to baseline HEENT: Atraumatic, PERRLA, EOMI, Normocephalic, EAC Clear Oral: Moist Mucosa, No Gingival or Mucosal Lesions/ Ulcerations, - - dentures in mouth with oatmeal in mouth Neck: Supple, No JVD, Negative Carotid Bruits, Negative Hepatojugular Reflux, No Nodes, No Nuchal Rigidity, Trachea Midline, Thyroid Normal Size and Texture Lungs: Clear to auscultation, Normal air movement, No rhonchi, No wheeze, No rales Cardiovascular: Regular rate, Regular Rhythm, Normal S1, Normal S2, No Ectopic Activity, Murmur - 3/6 SM, No rub noted, No Gallop Abdomen: Bowel Sounds Present, Soft, Non Tender, Non-Distended, No Hepato-splenomegaly, Obese, No hernias noted Extremities: No clubbing, No cyanosis, No edema, Cool, Edema Skin: No rashes, No breakdown, - - L Knee with blood soaked through incision distally Musculoskeletal: No Tenderness to Palpation of Joints or Extremities, Arthritic Changes Lymphatic: No Cervical, Supraclavicular, or Inguinal Adenopathy Neurological: Cranial nerves II-XII grossly intact, Deep Tendon Reflexes 2+/4 and Symmetrical, Neuro grossly intact, Muscle tone normal, Sensory exam intact to light touch and pain, Coordination normal Psych/Mental Status: - - once returned to baseline MS was normal affect and appropriate and A&O x 3 Laboratory Results 02/04/20 11:05: POC Glucose 144 H 02/04/20 11:18: Blood Type A POSITIVE, Antibody Screen POSITIVE H, Antibody Identification ANTI-M, Crossmatch See Detail 02/04/20 16:12: WBC 10.6, RBC 3.15 L, Hgb 9.3 L, Hct 29.3 L, MCV 93.0, MCH 29.5, MCHC 31.7 L, RDW Std Deviation 40.9, RDW Coeff of Iqra 12.0, Plt Count 323, MPV 9.8 02/04/20 16:12: Sodium 141, Potassium 4.1, Chloride 108 H, Carbon Dioxide 29.0, Anion Gap 4 L, BUN 18, Creatinine 1.33 H, Estim Creat Clear Calc 27.68, Est GFR (MDRD) Af Amer 49 L, Est GFR (MDRD) Non-Af 40 L, BUN/Creatinine Ratio 13.5, Glucose 180 H, Calcium 9.2 02/05/20 05:45: WBC 12.6 H, RBC 2.86 L, Hgb 8.4 L, Hct 26.7 L, MCV 93.4, MCH 29.4, MCHC 31.5 L, RDW Std Deviation 40.6, RDW Coeff of Iqra 11.9, Plt Count 216, MPV 10.1 02/05/20 05:45: Sodium 136, Potassium 4.8, Chloride 106, Carbon Dioxide 22.0, Anion Gap 8, BUN 19 H, Creatinine 1.17 H, Estim Creat Clear Calc 31.46, Est GFR (MDRD) Af Amer 57 L, Est GFR (MDRD) Non-Af 47 L, BUN/Creatinine Ratio 16.2, Glucose 108 H, Calcium 8.3 L 02/05/20 07:52: POC Glucose 155 H 02/05/20 10:00: Hgb 8.9 L, Hct 28.0 L Current Medications Acetaminophen (Tylenol) 1,000 mg PO Q8 [facility] Last Admin: 02/05/20 05:31 Dose: 1,000 mg Documented by: Acetaminophen (Tylenol) 650 mg PO Q6H PRN PRN PRN Reason: Mild Pain (1-3)/Temp > 100.7 F Aspirin (Aspirin, Baby) 81 mg PO DAILY@0800 [facility] Atorvastatin Calcium (Lipitor) 40 mg PO QHS [facility] Last Admin: 02/04/20 20:27 Dose: 40 mg Documented by: Bisacodyl (Dulcolax) 10 mg RECTAL DAILY PRN PRN PRN Reason: constipation Cholecalciferol (Vitamin D (25mcg)) 2,000 unit PO DAILY [facility] Donepezil HCl (Aricept) 10 mg PO QHS [facility] Last Admin: 02/04/20 20:22 Dose: 10 mg Documented by: Ferrous Sulfate (Ferrous Sulfate) 325 mg PO DAILYCM [facility] Sodium Chloride () 1,000 mls @ 50 mls/hr IV .Q20H [facility] Insulin Human Lispro (Humalog Mikepen (Bkc)) 1 - 6 unit SC Q4H PRN PRN; Protocol PRN Reason: BG>/= 180, SEE PROTOCOL Letrozole (Femara) 2.5 mg PO DAILY [facility] Lisinopril (Zestril) 20 mg PO LUNCH [facility] Metoprolol Succinate (Toprol Xl (Beta Bunny)) 25 mg PO DAILY [facility] Mirtazapine (Remeron) 30 mg PO QHS [facility] Last Admin: 02/04/20 20:22 Dose: 30 mg Documented by: Ondansetron HCl (Zofran) 4 mg IV Q8H PRN PRN PRN Reason: NAUSEA Last Admin: 02/05/20 01:13 Dose: 4 mg Documented by: Oxycodone HCl (Oxyir) 5 - 10 mg PO Q4H PRN PRN PRN Reason: Pain Score 4-10 Promethazine HCl (Phenergan) 12.5 mg IM Q6H PRN PRN; Protocol PRN Reason: NAUSEA/VOMITING Senna/Docusate Sodium (Senokot-S, Hansa-Colace) 2 tablet PO BID [facility] Last Admin: 02/04/20 20:22 Dose: 2 tablet Documented by: Sodium Chloride () 5 - 15 ml IV UD PRN PRN Reason: SALINE FLUSH Sodium Chloride () 10 - 40 ml IV UD PRN PRN Reason: SALINE FLUSH Tramadol HCl (Ultram) 50 mg PO Q6H PRN PRN Reason: Pain 1-10 or Fever STROKE Vital Signs/Narrative: Vital Signs Temp Pulse Resp BP Pulse Ox 02/05/20 10:00 98 F 70 18 107/46 L 96 02/05/20 09:10 98.1 F 72 18 114/44 L 96 02/05/20 08:46 98.1 F 72 18 106/49 L 96 02/05/20 08:33 72 Medical Necessity - Tobacco Use Smoking Status: Never smoker Tobacco Use: Non-smoker Assessment/Plan All Active Problems (Last Reviewed 09/25/19 @ 15:[address] Sachin De La Cruz MD) History of coronary artery stent placement (Resolved 06/17/09) H/O coronary artery bypass surgery (Resolved 05/23/06) H/O aortic valve replacement (Resolved 05/23/06) Breast cancer (Resolved) Chest pain (Resolved) Scarlet fever (Resolved)
[2020-02-05] MEDS: Aspirin 81 MG TAB.CHEW PO (13:39)
[2020-02-05] MEDS: Ferrous Sulfate 325 MG Tablet PO (13:40)
[2020-02-05] MEDS: Senna/Docusate Sodium 1 Tablet 2 TABLET PO ×2 (13:41→22:03)
--- NOTE | 2020-02-05 14:21 | CHAPLAIN ---
Type of Pastoral Visit _x__ Initial Visit ___ Follow-up Visit ___ On-call Visit ___ General Patient Visit ___ Spiritual Assessment ___ Family Conference ___ Bereavement ___ Rapid Response ___ Code Blue ___ Other (describe below) Pastoral Care Referral From ___ Patient ___ Family _x__ Nurse ___ Physician ___ Design Lead ___ Receivable Clerk ___ Other (describe below) Sacrament/Intervention _x__ Active listening ___ Anointing ___ Samaritan ___ Bereavement ___ Communion ___ Oma exploration ___ ___ Life review ___ Prayer ___ Reconciliation ___ Sacrament of Sick _x__ Supportive presence ___ Wedding ___ Other (describe below) Pastoral Comments visit of presence and listening support; visit cut short by personal phone for patient; patient requests that this computer science teacher come back another time
[2020-02-05] MEDS: Atorvastatin Calcium 40 MG Tablet PO (22:03)
[2020-02-05] MEDS: Donepezil HCl 5 MG Tablet 10 MG PO (22:03)
[2020-02-05] MEDS: Mirtazapine 30 MG Tablet PO (22:03)
[2020-02-06] VITALS (8 sets, daily range): BP systolic 122–148; BP diastolic 59–69; PULSE 101–112; RESP 16–18; TEMP 36.8–37.2; O2SAT 94–97
[2020-02-06] MEDS: 0.9% Normal Saline 1,000 ML 50 ML IV (05:34)
[2020-02-06] MEDS: Acetaminophen 500 MG Tablet 1000 MG PO ×2 (05:34→13:49)
[2020-02-06] MEDS: Ferrous Sulfate 325 MG Tablet PO (08:21)
[2020-02-06] MEDS: Aspirin 81 MG TAB.CHEW PO (08:21)
[2020-02-06] MEDS: traMADol 50 MG Tablet PO (09:31)
[2020-02-06] MEDS: Senna/Docusate Sodium 1 Tablet 2 TABLET PO (09:32)
[2020-02-06 09:42] LABS: Absolute Lymphocyte Count 1.16 X10^3/uL (0.83-4.51); Absolute Neutrophil Count 8.8 X10^3/uL (2.0-7.7); Basophil# 0.04 X10^3/uL; Basophil% 0.4 % (0-1); Eosinophil# 0.37 X10^3/uL; Eosinophils% 3.4 % (0-5); Hematocrit 28.4 % (37-47); Lymphocyte # 1.16 X10^3/ul (4.0); Lymphocyte % 10.6 % (19-41); Mean Corp Hgb Conc 31.7 g/dL (32-36); Mean Corpuscular Hgb 29.6 pg (27.0-32.0); Mean Corpuscular Volume 93.4 fL (81-99); Mean Platelet Vol. 9.6 fl (6.2-12.0); Monocyte# 0.62 X10^3/uL; Monocyte% 5.6 % (0-10); NRBC Flagged by Analyzer 0 % (0-5); Neutrophil # 8.78 X10^3/uL (2.7-7.7); Neutrophil % 79.8 % (47-70); Platelet Count 287 K/mm3 (150-450); RBC Distribution Width CV 12.3 % (11.6-14.6); RBC Distribution Width SD 41.9 fl (35.1-43.9); Red Blood Count 3.04 M/mm3 (4.2-5.4)
[2020-02-06 09:55] LABS: Anion Gap 3 (5-15); BUN 17 mg/dL (7-18); BUN/Creat Ratio 14.2 RATIO (10-20); Calcium,Total 8.6 mg/dL (8.5-10.1); Chloride 112 mmol/L (98-107); EST Glomerular Filtration Rate 46 mL/min (>60); Est Glom Filt Rate - Afr Amer 55 mL/min (>60); Estimated Creatinine Clearance 30.67 ml/min; Glucose 123 mg/dL (74-106); Potassium 4.6 mmol/L (3.5-5.1); Sodium Level 143 mmol/L (136-145)
[2020-02-06] MEDS: Lisinopril 10 MG Tablet PO (10:03)
[2020-02-06] MEDS: Metoprolol(XL)Succ 25 MG Tablet PO (10:03)
--- NOTE | 2020-02-06 10:59 | PN_ITS ---
Subjective: Pt states she is feeling fine other than for L knee pain. No issues overnight. BP back up. Vitals/I&O's: Vital Signs Temp Pulse Resp BP Pulse Ox 98.3 F 112 H 18 148/68 H 94 02/06/20 08:20 02/06/20 10:03 02/06/20 08:20 02/06/20 10:03 02/06/20 08:20 Oxygen Flow Rate (L/min) 2 Oxygen Delivery Method Room Air Weight: 67.6 kg Body Mass Index (BMI) 25.5 Intake and Output for Last 24 Hours 02/04/20 02/05/20 02/06/20 23:59 23:59 23:59 Intake Total 1279.00 / 1354.00 2373.25 / 2373.25 995 / 995 Output Total 500 / 1300 1400 / 1400 Balance 1279.00 / 1354.00 1873.25 / 1073.25 -405 / -405 General: Alert, Oriented x3, Cooperative, No apparent distress, Well developed, Well nourished, - - Older WF sitting up in a chair eating breakfast Lungs: Clear to auscultation, Normal air movement, No rhonchi, No wheeze, No rales Cardiovascular: Regular rate, Regular Rhythm, Normal S1, Normal S2, No murmurs, No Ectopic Activity, No rub noted, No Gallop Abdomen: Bowel Sounds Present, Soft, Non Tender, Non-Distended, No Hepato- splenomegaly, Obese, No hernias noted Extremities: No clubbing, No cyanosis, No edema, Capillary Refill Less than 3 Seconds, Peripheral Pulses Normal Neurological: Cranial nerves II-XII grossly intact, Neuro grossly intact Psych/Mental Status: Normal Affect, Appropriate Laboratory Results 02/05/20 11:00: COVID-19 ([facility]) Not Detected 02/06/20 09:35: WBC 11.0, RBC 3.04 L, Hgb 9.0 L, Hct 28.4 L, MCV 93.4, MCH 29.6, MCHC 31.7 L, RDW Std Deviation 41.9, RDW Coeff of Iqra 12.3, Plt Count 287, MPV 9.6, Immature Gran % (Auto) 0.200, Neut % (Auto) 79.8 H, Lymph % (Auto) 10.6 L, [place] % (Auto) 5.6, Eos % (Auto) 3.4, Baso % (Auto) 0.4, Absolute Neuts (auto) 8.8 H, Absolute Lymphs (auto) 1.16, Nucleated RBC % 0 02/06/20 09:35: Sodium 143, Potassium 4.6, Chloride 112 H, Carbon Dioxide 28.0, Anion Gap 3 L, BUN 17, Creatinine 1.20 H, Estim Creat Clear Calc 30.67, Est GFR (MDRD) Af Amer 55 L, Est GFR (MDRD) Non-Af 46 L, BUN/Creatinine Ratio 14.2, Glucose 123 H, Calcium 8.6 Current Medications Acetaminophen (Tylenol) 1,000 mg PO Q8 [facility] Last Admin: 02/06/20 05:34 Dose: 1,000 mg Documented by: Acetaminophen (Tylenol) 650 mg PO Q6H PRN PRN PRN Reason: Mild Pain (1-3)/Temp > 100.7 F Aspirin (Aspirin, Baby) 81 mg PO DAILY@0800 [facility] Last Admin: 02/06/20 08:21 Dose: 81 mg Documented by: Atorvastatin Calcium (Lipitor) 40 mg PO QHS [facility] Last Admin: 02/05/20 22:03 Dose: 40 mg Documented by: Bisacodyl (Dulcolax) 10 mg RECTAL DAILY PRN PRN PRN Reason: constipation Cholecalciferol (Vitamin D (25mcg)) 2,000 unit PO DAILY [facility] Last Admin: 02/06/20 09:32 Dose: 2,000 unit Documented by: Donepezil HCl (Aricept) 10 mg PO QHS [facility] Last Admin: 02/05/20 22:03 Dose: 10 mg Documented by: Ferrous Sulfate (Ferrous Sulfate) 325 mg PO DAILYCM [facility] Last Admin: 02/06/20 08:21 Dose: 325 mg Documented by: Sodium Chloride () 1,000 mls @ 50 mls/hr IV .Q20H [facility] Last Admin: 02/06/20 05:34 Dose: 50 mls/hr Documented by: Insulin Human Lispro (Humalog Kwikpen (Bkc)) 1 - 6 unit SC Q4H PRN PRN; Protocol PRN Reason: BG>/= 180, SEE PROTOCOL Letrozole (Femara) 2.5 mg PO DAILY [facility] Last Admin: 02/06/20 09:32 Dose: 2.5 mg Documented by: Lisinopril (Lisinopril 10 Mg Tablet) 10 mg PO DAILY [facility] Last Admin: 02/06/20 10:03 Dose: 10 mg Documented by: Metoprolol Succinate (Metoprolol(Xl)Succ 25 Mg Tablet) 25 mg PO DAILY [facility] Last Admin: 02/06/20 10:03 Dose: 25 mg Documented by: Mirtazapine (Remeron) 30 mg PO QHS [facility] Last Admin: 02/05/20 22:03 Dose: 30 mg Documented by: Ondansetron HCl (Zofran) 4 mg IV Q8H PRN PRN PRN Reason: NAUSEA Last Admin: 02/05/20 01:13 Dose: 4 mg Documented by: Oxycodone HCl (Oxyir) 5 - 10 mg PO Q4H PRN PRN PRN Reason: Pain Score 4-10 Promethazine HCl (Phenergan) 12.5 mg IM Q6H PRN PRN; Protocol PRN Reason: NAUSEA/VOMITING Senna/Docusate Sodium (Senokot-S, Hansa-Colace) 2 tablet PO BID [facility] Last Admin: 02/06/20 09:32 Dose: 2 tablet Documented by: Sodium Chloride () 5 - 15 ml IV UD PRN PRN Reason: SALINE FLUSH Sodium Chloride () 10 - 40 ml IV UD PRN PRN Reason: SALINE FLUSH Tramadol HCl (Ultram) 50 mg PO Q6H PRN PRN Reason: Pain 1-10 or Fever Last Admin: 02/06/20 09:31 Dose: 50 mg Documented by: STROKE Vital Signs/Narrative: Vital Signs Temp Pulse Resp BP Pulse Ox 02/06/20 10:03 112 H 148/68 H 02/06/20 08:20 98.3 F 112 H 18 148/68 H 94 02/06/20 07:42 108 H Medical Necessity - Tobacco Use Smoking Status: Never smoker Tobacco Use: Non-smoker Assessment/Plan All Active Problems (Last Reviewed 09/25/19 @ 15:[address] Sachin De La Cruz MD) History of coronary artery stent placement (Resolved 06/17/09) H/O coronary artery bypass surgery (Resolved 05/23/06) H/O aortic valve replacement (Resolved 05/23/06) Breast cancer (Resolved) Chest pain (Resolved) Scarlet fever (Resolved) Syncope/Hypotension -resolved TKA L POD 2 -pain meds per ortho -bowel regimen -PT/OT Acute Anemia on Chronic Fe Deficient Anemia -counts stable at 9 this am CAD/HTN/HPL -restart ACEI and BB today -EF from recent ECHO shows 60% -continue ASA -continue Statin Tachycardia -BB held 2/2 hypotension yesterday -restart today H/O AVR -bioprosthetic valve CKD Stage 3 -sCr stable Depression -continue home meds Dementia -continue Aricept H/O Breast Cancer -continue Femara DVT prophylaxis -per ortho Dispo -per Ortho but ok for d/c from a medical standpoint
--- NOTE | 2020-02-06 11:03 | CASEMGMT ---
Social Work Note SW faxed PT/OT to [facility]. Pt should discharge today to [facility] skilled. Plan: W skilled once medically cleared Isabel Magana HARNESS INSTALLER, CHIEF RESOURCE OFFICER
--- NOTE | 2020-02-06 11:34 | PN.ORTHO_ITS ---
Subjective: Patient sitting at bedside with her son at her side. Patient states she feels very good today, complains that she is having knee pain. Patient denies chest pain, shortness of breath, calf pain, nausea vomiting. Patient has no other complaints and is ready for discharge back to the [facility] where she was a resident prior to surgery. Objective: Dressing is clean dry intact. Negative signs and symptoms of DVT. Vital signs and labs were reviewed and noted. Patient has good plantar flexion dorsiflexion of bilateral feet and ankle. Patient is afebrile. Patient is alert and oriented answering questions appropriately. Patient is no respiratory distress, speaking in full sentences. - Physical Exam Vitals/I&O's: Vital Signs Temp Pulse Resp BP Pulse Ox 98.3 F 112 H 18 148/68 H 94 02/06/20 08:20 02/06/20 10:03 02/06/20 08:20 02/06/20 10:03 02/06/20 08:20 Oxygen Flow Rate (L/min) 2 Oxygen Delivery Method Room Air Weight: 67.6 kg Body Mass Index (BMI) 25.5 Intake and Output for Last 24 Hours 02/04/20 02/05/20 02/06/20 23:59 23:59 23:59 Intake Total 1279.00 / 1354.00 2373.25 / 2373.25 995 / 995 Output Total 500 / 1300 1400 / 1400 Balance 1279.00 / 1354.00 1873.25 / 1073.25 -405 / -405 General: Alert, Oriented x3, Cooperative HEENT: PERRLA Oral: Moist Mucosa Neurological: Cranial nerves II-XII grossly intact Psych/Mental Status: Normal Affect, Alert and oriented to time, place, person, mood and affect Laboratory Results 02/05/20 11:00: COVID-19 ([facility]) Not Detected 02/06/20 09:35: WBC 11.0, RBC 3.04 L, Hgb 9.0 L, Hct 28.4 L, MCV 93.4, MCH 29.6, MCHC 31.7 L, RDW Std Deviation 41.9, RDW Coeff of Iqra 12.3, Plt Count 287, MPV 9.6, Immature Gran % (Auto) 0.200, Neut % (Auto) 79.8 H, Lymph % (Auto) 10.6 L, [place] % (Auto) 5.6, Eos % (Auto) 3.4, Baso % (Auto) 0.4, Absolute Neuts (auto) 8.8 H, Absolute Lymphs (auto) 1.16, Nucleated RBC % 0 02/06/20 09:35: Sodium 143, Potassium 4.6, Chloride 112 H, Carbon Dioxide 28.0, Anion Gap 3 L, BUN 17, Creatinine 1.20 H, Estim Creat Clear Calc 30.67, Est GFR (MDRD) Af Amer 55 L, Est GFR (MDRD) Non-Af 46 L, BUN/Creatinine Ratio 14.2, Glucose 123 H, Calcium 8.6 Current Medications Acetaminophen (Tylenol) 1,000 mg PO Q8 [facility] Last Admin: 02/06/20 05:34 Dose: 1,000 mg Documented by: Acetaminophen (Tylenol) 650 mg PO Q6H PRN PRN PRN Reason: Mild Pain (1-3)/Temp > 100.7 F Aspirin (Aspirin, Baby) 81 mg PO DAILY@0800 [facility] Last Admin: 02/06/20 08:21 Dose: 81 mg Documented by: Atorvastatin Calcium (Lipitor) 40 mg PO QHS [facility] Last Admin: 02/05/20 22:03 Dose: 40 mg Documented by: Bisacodyl (Dulcolax) 10 mg RECTAL DAILY PRN PRN PRN Reason: constipation Cholecalciferol (Vitamin D (25mcg)) 2,000 unit PO DAILY [facility] Last Admin: 02/06/20 09:32 Dose: 2,000 unit Documented by: Donepezil HCl (Aricept) 10 mg PO QHS [facility] Last Admin: 02/05/20 22:03 Dose: 10 mg Documented by: Ferrous Sulfate (Ferrous Sulfate) 325 mg PO DAILYCM [facility] Last Admin: 02/06/20 08:21 Dose: 325 mg Documented by: Sodium Chloride () 1,000 mls @ 50 mls/hr IV .Q20H [facility] Last Admin: 02/06/20 05:34 Dose: 50 mls/hr Documented by: Insulin Human Lispro (Humalog Kwikpen (Bkc)) 1 - 6 unit SC Q4H PRN PRN; Protocol PRN Reason: BG>/= 180, SEE PROTOCOL Letrozole (Femara) 2.5 mg PO DAILY [facility] Last Admin: 02/06/20 09:32 Dose: 2.5 mg Documented by: Lisinopril (Lisinopril 10 Mg Tablet) 10 mg PO DAILY [facility] Last Admin: 02/06/20 10:03 Dose: 10 mg Documented by: Metoprolol Succinate (Metoprolol(Xl)Succ 25 Mg Tablet) 25 mg PO DAILY [facility] Last Admin: 02/06/20 10:03 Dose: 25 mg Documented by: Mirtazapine (Remeron) 30 mg PO QHS [facility] Last Admin: 02/05/20 22:03 Dose: 30 mg Documented by: Ondansetron HCl (Zofran) 4 mg IV Q8H PRN PRN PRN Reason: NAUSEA Last Admin: 02/05/20 01:13 Dose: 4 mg Documented by: Oxycodone HCl (Oxyir) 5 - 10 mg PO Q4H PRN PRN PRN Reason: Pain Score 4-10 Promethazine HCl (Phenergan) 12.5 mg IM Q6H PRN PRN; Protocol PRN Reason: NAUSEA/VOMITING Senna/Docusate Sodium (Senokot-S, Hansa-Colace) 2 tablet PO BID [facility] Last Admin: 02/06/20 09:32 Dose: 2 tablet Documented by: Sodium Chloride () 5 - 15 ml IV UD PRN PRN Reason: SALINE FLUSH Sodium Chloride () 10 - 40 ml IV UD PRN PRN Reason: SALINE FLUSH Tramadol HCl (Ultram) 50 mg PO Q6H PRN PRN Reason: Pain 1-10 or Fever Last Admin: 02/06/20 09:31 Dose: 50 mg Documented by: Medical Necessity - Tobacco Use Smoking Status: Never smoker Tobacco Use: Non-smoker Assessment/Plan All Active Problems (Last Reviewed 09/25/19 @ 15:[address] Sachin De La Cruz MD) History of coronary artery stent placement (Resolved 06/17/09) H/O coronary artery bypass surgery (Resolved 05/23/06) H/O aortic valve replacement (Resolved 05/23/06) Breast cancer (Resolved) Chest pain (Resolved) Scarlet fever (Resolved) Status post left total knee arthroplasty. Unresponsive/resolved/stable Plan 1. Continue all pain medications as prescribed 2. Continue physical therapy, weight-bear as tolerated with walker. 3. Aspirin 81 mg 1 p.o. daily for postop DVT prophylaxis x30 days 4. Encourage incentive spirometry 5. Discharge today to [facility] where patient was resident preoperatively 6. Follow-up as scheduled, see pink sheet
--- NOTE | 2020-02-06 11:47 | DCINST_ITS ---
Discharge Diet: No Restrictions Discharge Activity: May Not Drive, May Shower, Use Walker May shower in (days): 3 Ice area for (Minutes): 20 - each hour while awake. Weight Bearing Status: Weight bearing as tolerated Elevate: Operative Extremity Additional Activity Instructions:: Wear elastic stockings for 2 weeks after your surgery. Call your doctor if your incision/area has: Continuous Slow Oozing, Sudden Increased Bleeding, Increased Pain/ Swelling, Increased Redness, Foul Smelling Discharge Call your doctor if you observe: Fever of 101 or Higher, Coldness, Increased Pain - in extremity, Numbness or Tingling, Change in Color, Calf discomfort, Uncontrolled pain Remove Dressing in (days):: 8 Cleanse incision/area with: Soap & Water Allergies/Adverse Reactions: Allergies bupropion Allergy (Verified 02/04/20 11:02) PT UNSURE OF REACTION cephalexin Allergy (Verified 02/04/20 11:02) PT UNSURE OF REACTION codeine Allergy (Verified 02/04/20 11:02) PT UNSURE OF REACTION esomeprazole [From Nexium] Allergy (Verified 02/04/20 11:02) PT UNSURE OF REACTION furosemide Allergy (Verified 02/04/20 11:02) PT UNSURE OF REACTION lansoprazole [From Prevacid] Allergy (Verified 02/04/20 11:02) PT UNSURE OF REACTION nitrofurantoin [From Macrobid] Allergy (Verified 02/04/20 11:02) PT UNSURE OF REACTION potassium Allergy (Verified 02/04/20 11:02) PT UNSURE OF REACTION sulfamethoxazole [From Septra] Allergy (Verified 02/04/20 11:02) Unknown trimethoprim [From Septra] Allergy (Verified 02/04/20 11:02) Unknown venlafaxine Allergy (Verified 02/04/20 11:02) PT UNSURE OF REACTION paper tape Adverse Reaction (Uncoded 02/04/20 11:02) PT UNSURE OF REACTION Medications to take at Discharge Letrozole [Femara] 2.5 mg PO DAILY 07/21/14 atorvastatin 40 mg tablet 40 mg PO QHS 07/05/17 Donepezil HCl [Aricept] 10 mg PO QHS 08/31/17 Aspirin [Aspirin, Baby] 81 mg PO DAILY@0800 #0 09/04/17 Bisacodyl [Dulcolax] 10 mg RECTAL DAILY PRN PRN suppos. 09/04/17 ferrous sulfate 325 mg (65 mg iron) tablet 325 mg PO DAILY tab 02/09/18 Mirtazapine 30 mg PO QHS 06/10/18 benazepril 20 mg tablet 20 mg PO LUNCH 90 Days #90 tab 08/30/18 metoprolol succinate 25 mg tablet,extended release 24 hr 25 mg PO DAILY 90 Days #90 tab 08/30/18 Amoxicillin 2,000 mg PO PRN PRN 01/15/20 Cholecalciferol (VIT D3) [Vitamin D3] 2,000 unit PO DAILY 01/15/20 Sennosides [Senna] 8.6 mg PO DAILY 01/15/20 Sennosides/Docusate Sodium [Senna-S 8.6-50 mg Tablet] 1 ea PO BID PRN PRN 01/15/20 Acetaminophen [Tylenol] 1,000 mg PO Q8 #90 tab 02/06/20 Aspirin [Aspirin, Baby] 81 mg PO DAILY@0800 #30 tab.chew 02/06/20 Oxycodone [Oxyir] 5 - 10 mg PO Q4H PRN PRN 7 Days #84 tab 02/06/20 The following prescriptions were given: Aspirin [Aspirin, Baby] 81 mg PO DAILY@0800 #30 tab.chew Prescription Printed Oxycodone [Oxyir] 5 - 10 mg PO Q4H PRN PRN 7 Days #84 tab PRN Reason: Pain Score 4-10 Prescription Printed Acetaminophen [Tylenol] 1,000 mg PO Q8 #90 tab Prescription Printed Primary Care Physician: Dereck Pihllips III, MD [Primary Care Provider] - Test Results: Test results from this visit will be discussed in further detail at your follow- up appointment, if applicable. Please Follow Up With: Wes Martinez PA-C When: as scheduled (see pink sheet)
--- NOTE | 2020-02-06 11:54 | DS.PCM_ITS ---
Discharge Date and Diagnosis Date of Admission: 08/31/17 Date of Discharge: 02/06/20 - Primary Discharge Diagnosis Acute Problems: Status post left total knee arthroplasty - Secondary Discharge Diagnosis Chronic Problems: Chronic Problems (Last Reviewed 09/25/19 @ 15:[address] 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 Good bony alignment. Operations: total knee replacement - Orthopedically patient had an uneventful stay. Patient is doing very well postoperatively. Patient on postop day 1 did experience an unresponsive episode, hypotension. Medicine consulted, and assumed medical management. The patient today is stable and asymptomatic. Patient hemodynamically stabl Procedures: None Summary of Care Provided: The patient is a 84 year old F [] S/P left tkr Subjective: Patient sitting in bedside with her son at her side. Patient is in no respiratory distress. Patient denies chest pain, shortness of breath, calf pain, nausea vomiting. Patient has no other complaints and is ready for discharge to [facility], where she was a resident preoperatively Objective: Dressings clean dry intact. Negative signs and symptoms of DVT. Vital signs labs reviewed noted medical record. Patient is afebrile. Patient no respiratory distress, speaking in full sentences. Patient is otherwise intact. - Physical Exam Vitals/I&O's: Vital Signs Temp Pulse Resp BP Pulse Ox 98.3 F 112 H 18 148/68 H 94 02/06/20 08:20 02/06/20 10:03 02/06/20 08:20 02/06/20 10:02/06/20 08:20 Oxygen Flow Rate (L/min) 2 Oxygen Delivery Method Room Air Weight: 67.6 kg Body Mass Index (BMI) 25.5 Intake and Output for Last 24 Hours 02/04/20 02/05/20 02/06/20 23:59 23:59 23:59 Intake Total 1279.00 / 1354.00 2373.25 / 2373.25 995 / 995 Output Total 500 / 1300 1400 / 1400 Balance 1279.00 / 1354.00 1873.25 / 1073.25 -405 / -405 General: Alert, Oriented x3, Cooperative Oral: Moist Mucosa Neurological: Cranial nerves II-XII grossly intact Psych/Mental Status: Normal Affect, Alert and oriented to time, place, person, mood and affect Laboratory Results 02/05/20 11:00: COVID-19 ([facility]) Not Detected 02/06/20 09:35: WBC 11.0, RBC 3.04 L, Hgb 9.0 L, Hct 28.4 L, MCV 93.4, MCH 29.6, MCHC 31.7 L, RDW Std Deviation 41.9, RDW Coeff of Iqra 12.3, Plt Count 287, MPV 9.6, Immature Gran % (Auto) 0.200, Neut % (Auto) 79.8 H, Lymph % (Auto) 10.6 L, [place] % (Auto) 5.6, Eos % (Auto) 3.4, Baso % (Auto) 0.4, Absolute Neuts (auto) 8.8 H, Absolute Lymphs (auto) 1.16, Nucleated RBC % 0 02/06/20 09:35: Sodium 143, Potassium 4.6, Chloride 112 H, Carbon Dioxide 28.0, Anion Gap 3 L, BUN 17, Creatinine 1.20 H, Estim Creat Clear Calc 30.67, Est GFR (MDRD) Af Amer 55 L, Est GFR (MDRD) Non-Af 46 L, BUN/Creatinine Ratio 14.2, Glucose 123 H, Calcium 8.6 Current Medications Acetaminophen (Tylenol) 1,000 mg PO Q8 COUNT INCLUDES THE [facility] Last Admin: 02/06/20 05:34 Dose: 1,000 mg Documented by: Acetaminophen (Tylenol) 650 mg PO Q6H PRN PRN PRN Reason: Mild Pain (1-3)/Temp > 100.7 F Aspirin (Aspirin, Baby) 81 mg PO DAILY@0800 COUNT INCLUDES THE [facility] Last Admin: 02/06/20 08:21 Dose: 81 mg Documented by: Atorvastatin Calcium (Lipitor) 40 mg PO QHS COUNT INCLUDES THE [facility] Last Admin: 02/05/20 22:03 Dose: 40 mg Documented by: Bisacodyl (Dulcolax) 10 mg RECTAL DAILY PRN PRN PRN Reason: constipation Cholecalciferol (Vitamin D (25mcg)) 2,000 unit PO DAILY COUNT INCLUDES THE [facility] Last Admin: 02/06/20 09:32 Dose: 2,000 unit Documented by: Donepezil HCl (Aricept) 10 mg PO QHS COUNT INCLUDES THE [facility] Last Admin: 02/05/20 22:03 Dose: 10 mg Documented by: Ferrous Sulfate (Ferrous Sulfate) 325 mg PO DAILYCM COUNT INCLUDES THE [facility] Last Admin: 02/06/20 08:21 Dose: 325 mg Documented by: Sodium Chloride () 1,000 mls @ 50 mls/hr IV .Q20H COUNT INCLUDES THE [facility] Last Admin: 02/06/20 05:34 Dose: 50 mls/hr Documented by: Insulin Human Lispro (Humalog Kwikpen (Bkc)) 1 - 6 unit SC Q4H PRN PRN; Protocol PRN Reason: BG>/= 180, SEE PROTOCOL Letrozole (Femara) 2.5 mg PO DAILY COUNT INCLUDES THE [facility] Last Admin: 02/06/20 09:32 Dose: 2.5 mg Documented by: Lisinopril (Lisinopril 10 Mg Tablet) 10 mg PO DAILY COUNT INCLUDES THE [facility] Last Admin: 02/06/20 10:03 Dose: 10 mg Documented by: Metoprolol Succinate (Metoprolol(Xl)Succ 25 Mg Tablet) 25 mg PO DAILY COUNT INCLUDES THE [facility] Last Admin: 02/06/20 10:03 Dose: 25 mg Documented by: Mirtazapine (Remeron) 30 mg PO QHS COUNT INCLUDES THE [facility] Last Admin: 02/05/20 22:03 Dose: 30 mg Documented by: Ondansetron HCl (Zofran) 4 mg IV Q8H PRN PRN PRN Reason: NAUSEA Last Admin: 02/05/20 01:13 Dose: 4 mg Documented by: Oxycodone HCl (Oxyir) 5 - 10 mg PO Q4H PRN PRN PRN Reason: Pain Score 4-10 Promethazine HCl (Phenergan) 12.5 mg IM Q6H PRN PRN; Protocol PRN Reason: NAUSEA/VOMITING Senna/Docusate Sodium (Senokot-S, Hansa-Colace) 2 tablet PO BID COUNT INCLUDES THE [facility] Last Admin: 02/06/20 09:32 Dose: 2 tablet Documented by: Sodium Chloride () 5 - 15 ml IV UD PRN PRN Reason: SALINE FLUSH Sodium Chloride () 10 - 40 ml IV UD PRN PRN Reason: SALINE FLUSH Tramadol HCl (Ultram) 50 mg PO Q6H PRN PRN Reason: Pain 1-10 or Fever Last Admin: 02/06/20 09:31 Dose: 50 mg Documented by: Discharge Diet: No Restrictions Discharge Activity: May Not Drive, May Shower, Use Walker May shower in (days): 3 Ice area for (Minutes): 20 - each hour while awake. Weight Bearing Status: Weight bearing as tolerated Keep extremity elevated above heart level: Operative Extremity Additional Activity Instructions:: Wear elastic stockings for 2 weeks after your surgery. Call your doctor if your incision/area has: Continuous Slow Oozing, Sudden Increased Bleeding, Increased Pain/ Swelling, Increased Redness, Foul Smelling Discharge Call your doctor if you observe: Fever of 101 or Higher, Coldness, Increased Pain - in extremity, Numbness or Tingling, Change in Color, Calf discomfort, Uncontrolled pain Remove Dressing in (days):: 8 Cleanse incision/area with: Soap & Water Home Medications: Medications to take at Discharge Letrozole [Femara] 2.5 mg PO DAILY 07/21/14 atorvastatin 40 mg tablet 40 mg PO QHS 07/05/17 Donepezil HCl [Aricept] 10 mg PO QHS 08/31/17 Aspirin [Aspirin, Baby] 81 mg PO DAILY@0800 #0 09/04/17 Bisacodyl [Dulcolax] 10 mg RECTAL DAILY PRN PRN suppos. 09/04/17 ferrous sulfate 325 mg (65 mg iron) tablet 325 mg PO DAILY tab 02/09/18 Mirtazapine 30 mg PO QHS 06/10/18 benazepril 20 mg tablet 20 mg PO LUNCH 90 Days #90 tab 08/30/18 metoprolol succinate 25 mg tablet,extended release 24 hr 25 mg PO DAILY 90 Days #90 tab 08/30/18 Amoxicillin 2,000 mg PO PRN PRN 01/15/20 Cholecalciferol (VIT D3) [Vitamin D3] 2,000 unit PO DAILY 01/15/20 Sennosides [Senna] 8.6 mg PO DAILY 01/15/20 Sennosides/Docusate Sodium [Senna-S 8.6-50 mg Tablet] 1 ea PO BID PRN PRN 01/15/20 Acetaminophen [Tylenol] 1,000 mg PO Q8 #90 tab 02/06/20 Aspirin [Aspirin, Baby] 81 mg PO DAILY@0800 #30 tab.chew 02/06/20 Oxycodone [Oxyir] 5 - 10 mg PO Q4H PRN PRN 7 Days #84 tab 02/06/20 Following Prescriptions Were Given to Patient: Aspirin [Aspirin, Baby] 81 mg PO DAILY@0800 #30 tab.chew Prescription Printed Oxycodone [Oxyir] 5 - 10 mg PO Q4H PRN PRN 7 Days #84 tab PRN Reason: Pain Score 4-10 Prescription Printed Acetaminophen [Tylenol] 1,000 mg PO Q8 #90 tab Prescription Printed Primary Care Physician: Dereck Phillips III, MD [Primary Care Provider] - Please Follow Up With: Wes Martinez PAKeegan When: as scheduled (see pink sheet) Medical Necessity - Tobacco Use Smoking Status: Never smoker Tobacco Use: Non-smoker Meaningful Use Info Meaningful Use Diagnoses (Choose all that apply): None applicable - AMI/Post PCI/Angioplasty Aspirin given w/in 24hrs of arrival?: Yes Antiplatelet Therapy at Discharge:: Yes
--- NOTE | 2020-02-06 12:30 | CASEMGMT ---
Social Work Note Pt is able to discharge to [facility] skilled today. RADHA faxed completed discharge paperwork to [facility] including transfer to extended care facility, signed medication list, any scripts, negative COVID test and COVID screening tool to [facility], original in SNF folder and copy on pt's chart. RADHA completed convalescent [facility] in [facility]. Original in SNF folder and copy on pt's chart. Comprehensive Advisor arranged transportation for 2:00pm. RADHA placed a call to Kori at [facility] and left message updating her on discharge and transportation time. RADHA updated pt's son David on discharge and transportation time. RADHA also spoke with David's Lore and answered her questions. Plan: [facility] skilled today with transportation arranged for 2:00pm Isabel TSE, FUGITIVE INVESTIGATOR
--- NOTE | 2020-02-06 13:40 | NURSING ---
REPORT GIVEN TO JC Morales RN AT [facility]
== END 2020-02-06 14:22 | DRG 470 ==
LOC: SDC 13:28 → MS3 13:28
PROVIDERS: Internal Medicine; Admitting Provider Orthopaedic Surgery; PCP Family Medicine; Referring Provider Orthopaedic Surgery; Visit Provider Orthopaedic Surgery
PROC: 0SRD0J9 Replacement of Left Knee Joint with Synthetic Substitute, Cemented, Open Approach (ICD-10-PCS; CPT 27447; principal; 2020-02-04 12:05)
DX: M17.12 Unilateral primary osteoarthritis, left knee (principal); I25.810 Atherosclerosis of coronary artery bypass graft(s) without angina pectoris; I95.9 Hypotension, unspecified; D50.9 Iron deficiency anemia, unspecified; I12.9 Hypertensive chronic kidney disease with stage 1 through stage 4 chronic kidney disease, or unspecified chronic kidney disease; N18.30 Chronic kidney disease, stage 3 unspecified; I25.10 Atherosclerotic heart disease of native coronary artery without angina pectoris; E78.5 Hyperlipidemia, unspecified; F03.90 Unspecified dementia, unspecified severity, without behavioral disturbance, psychotic disturbance, mood disturbance, and anxiety; F32.9 Major depressive disorder, single episode, unspecified; F41.9 Anxiety disorder, unspecified; Z78.0 Asymptomatic menopausal state; Z79.811 Long term (current) use of aromatase inhibitors; Z79.899 Other long term (current) drug therapy; I25.2 Old myocardial infarction; Z95.5 Presence of coronary angioplasty implant and graft; Z95.2 Presence of prosthetic heart valve
CPT/HCPCS: 36415; 73560; 80048; 82962; 85014; 85018; 85025; 85027; 86850; 86870; 86900; 86901; 86902; 86920; 86922; 87635; 88305; 88311; 93005; 97110; 97162; 97166; 97530; 97535; 99251; C1776; J7030; J7120; G0463; J2405; U0003

== ENCOUNTER → 2020-03-08 13:53 | Outpatient (REF) | payer SELFPAY ==
[2020-02-04 16:46] VITALS: BMI 25.5
[2020-03-08 14:48] LABS: Absolute Lymphocyte Count 1.25 X10^3/uL (0.83-4.51); Absolute Neutrophil Count 3.7 X10^3/uL (2.0-7.7); Eosinophil# 0.02 X10^3/uL; Eosinophils% 0.4 % (0-5); Hematocrit 30.7 % (37-47); Hemoglobin 9.5 g/dL (12.0-15.0); Lymphocyte # 1.25 X10^3/ul (4.0); Lymphocyte % 23.2 % (19-41); Mean Corp Hgb Conc 30.9 g/dL (32-36); Mean Corpuscular Hgb 29.1 pg (27.0-32.0); Mean Corpuscular Volume 93.9 fL (81-99); Mean Platelet Vol. 10.4 fl (6.2-12.0); Monocyte% 7.4 % (0-10); NRBC Flagged by Analyzer 0 % (0-5); Neutrophil % 68.6 % (47-70); Platelet Count 255 K/mm3 (150-450); RBC Distribution Width CV 14.6 % (11.6-14.6); RBC Distribution Width SD 49.8 fl (35.1-43.9); Red Blood Count 3.27 M/mm3 (4.2-5.4); White Blood Count 5.4 K/mm3 (4.4-11.0)
[2020-03-10 09:18] LABS: HIV - WCH Non-Reactive (Nonreactive)
[2020-03-10 09:30] LABS: Anion Gap 10 (5-15); BUN 32 mg/dL (7-18); BUN/Creat Ratio 21.9 RATIO (10-20); Calcium,Total 8.8 mg/dL (8.5-10.1); Chloride 110 mmol/L (98-107); Creatinine, Serum 1.46 mg/dL (0.55-1.02); EST Glomerular Filtration Rate 36 mL/min (>60); Est Glom Filt Rate - Afr Amer 44 mL/min (>60); Glucose 86 mg/dL (74-106); Potassium 4.2 mmol/L (3.5-5.1); Sodium Level 141 mmol/L (136-145)
[2020-03-11 05:07] LABS: HEPATITIS B SURFACE AG 6510 Negative (Negative); Hepatitis C Ab <0.1 s/co ratio (0.0-0.9)
[2020-03-11 09:00] LABS: Hep B Surface Antibodies Non Reactive (.); Hepatitis B Core Ab Total Negative (Negative)
== END ==
LOC: OLS.WHLTCC 13:53
PROVIDERS: Visit Provider Family Medicine
DX: Z00.00 Encounter for general adult medical examination without abnormal findings (principal); W46.1XXA Contact with contaminated hypodermic needle, initial encounter; Z79.899 Other long term (current) drug therapy
CPT/HCPCS: 80048; 85025; 86703; 86704; 86706; 86803; 87340